=== PATIENT | male | born 1990 | race Caucasian/White ===

== ENCOUNTER 2021-11-07 07:53 | Inpatient (IN) | payer MEDICAID, SELFPAY ==
[2021-11-07] VITALS (10 sets, daily range): BP systolic 121–169; BP diastolic 67–91; PULSE 93–115; RESP 18–96; TEMP 36.6–37.2; O2SAT 94–99; BMI 45.7
--- NOTE | ~2021-11-07 | XR_ITS ---
EXAMINATION: XR CHEST CLINICAL INFORMATION: Cough COMPARISON: None TECHNIQUE: Frontal view of the chest was obtained. FINDINGS: No significant abnormality is noted involving the heart, lungs, mediastinum, bony thorax or soft tissues. XR/XR chest 1V IMPRESSION: Unremarkable examination.
--- NOTE | ~2021-11-07 | US_ITS ---
EXAMINATION: US RETROPERITONEAL LIMITED (RENAL ONLY) CLINICAL INFORMATION: Follow-up density mid left kidney. COMPARISON: Previous CT of the abdomen and pelvis from yesterday TECHNIQUE: Grayscale and color imaging of the kidneys FINDINGS: RIGHT KIDNEY: 14.2 x 5.9 x 6.1 cm (SAG x AP x TRV). The kidney is normal in size, contour, and echogenicity. Renal cortical thickness is normal. No calculi or focal parenchymal lesions. No hydronephrosis. LEFT KIDNEY: 15.2 x 7.2 x 6.3 cm (SAG x AP x TRV). The kidney is normal in size, contour, and echogenicity. Renal cortical thickness is normal. There is a 1.2 x 0.7 x 1 cm cyst in the midpole. This likely corresponds to finding on CT representing a hyperdense cyst. No calculi. No hydronephrosis. There are varices. US/US renal BI IMPRESSION: 1.2 x 0.7 x 1 cm left renal cyst..
--- NOTE | ~2021-11-07 | CT_ITS ---
EXAMINATION: CT ABDOMEN AND PELVIS WITHOUT CONTRAST CLINICAL INFORMATION: Abdominal pain, elevated liver function tests COMPARISON: None TECHNIQUE: Multidetector volumetric imaging was performed from the superior aspect of the liver through the pubic symphysis. Sagittal and coronal reformatted images were obtained on the technologist's workstation. This CT examination was performed using dose optimization techniques as appropriate, variously including the following: *Automated exposure control *Adjustment of mA and/or kV according to patient size (this includes techniques or standardized protocols for targeted exams where dose is matched to indication/reason for exam; i.e. extremities or head) *Use of iterative reconstruction technique DLP: 1164 mGy-cm FINDINGS: LUNG BASES: The visualized lung bases are unremarkable. LIVER, GALLBLADDER, AND BILIARY TREE: The liver is enlarged, measuring up to 26 cm in craniocaudal dimension. Evaluation of the parenchyma is limited due to lack of IV contrast, however there does appear to be a nodular contour. No discrete focal lesion is visualized. No biliary ductal dilatation is present. There is increased density of the intraluminal contents of the gallbladder, which may represent multiple small stones versus proteinaceous sludge. There is mild gallbladder wall thickening. PANCREAS: Unremarkable. SPLEEN: The spleen is enlarged, measuring up to 15.1 cm including caudal dimension. ADRENAL GLANDS: Unremarkable. KIDNEYS AND URETERS: The kidneys are normal in size and shape. There is a 1.1 cm ovoid intermediate density focus in the mid polar region of the left kidney (series 4, image 50). No hydronephrosis, hydroureter, or calculi seen. No perinephric stranding. BLADDER: Unremarkable. GASTROINTESTINAL TRACT: The stomach and small bowel are not dilated. No pericolonic inflammatory change. Normal appendix. ABDOMINAL WALL: There is anasarca of the soft tissues. LYMPH NODES/PERITONEUM: No suspicious lymphadenopathy. There is a small to moderate amount of ascites. VASCULAR: There is a recanalized umbilical vein as well as varices along the anterior abdominal wall. There are splenorenal varices and gastroesophageal varices. Normal caliber of the abdominal aorta.. PELVIC VISCERA: Unremarkable. OSSEOUS STRUCTURES: No acute or suspicious osseous abnormality. CT/CT abdomen pelvis wo con IMPRESSION: - Hepatomegaly with nodular surface of the liver suggestive of cirrhosis. - Evidence for portal venous hypertension, including splenomegaly, recanalized umbilical vein as well as abdominal wall, splenorenal, and gastroesophageal varices. There is also a small to moderate amount of ascites and body wall anasarca. - Intraluminal contents of the gallbladder have high density, which may represent multiple small stones versus proteinaceous sludge. There is gallbladder wall thickening, which can be seen in the setting of ascites/intrinsic liver disease. -1.1 cm ovoid intermediate density focus in the mid polar region of the left kidney, may represent a hemorrhagic cyst. Further evaluation can be obtained with renal ultrasound.
--- NOTE | ~2021-11-07 | US_ITS ---
PROCEDURE: US PARACENTESIS ABDOMEN WITH IMAGE CLINICAL INFORMATION: Alcoholic liver cirrhosis with ascites. COMPARISON: None TECHNIQUE: Following explaining ultrasound-guided diagnostic paracentesis procedure, benefits and risk, a written consent was obtained in presence of mine technician and IR nurse. Patient was placed supine on ultrasound stretcher and pulmonary ultrasound imaging was obtained through the entire abdomen. The area of maximum fluid within the left lower quadrant close to the inguinal region was observed. The area was marked, cleaned and draped in usual sterile manner. 1% lidocaine was injected at puncture site. Through a small skin incision a 5 [place] long Yueh needle was advanced into the left lower quadrant collection. After observing fluid return, stylet was withdrawn and catheter connected to vacuum bottle via connecting cannula. After obtaining all fluid and observing no more fluid, catheter was withdrawn and complete hemostasis achieved at puncture site. Sterile dressing applied postprocedure. Patient tolerated procedure extremely well. FINDINGS: On preliminary ultrasound imaging there is moderate fluid visualized in the left lower quadrant adjacent to the inguinal region. Approximately 800 mL of dark nae fluid initially jaundice color was obtained. Part of this fluid was sent to lab as per referring physician's orders. US/US paracentesis abd w/image IMPRESSION: Successful ultrasound-guided diagnostic paracentesis performed without immediate complications.
--- NOTE | 2021-11-07 08:35 | ECG_ITS ---
Test Reason : pain Blood Pressure : / mmHG Vent. Rate : 092 BPM Atrial Rate : 092 BPM P-R Int : 134 ms QRS Dur : 086 ms QT Int : 386 ms P-R-T Axes : 000 -09 -08 degrees QTc Int : 477 ms Normal sinus rhythm Minimal voltage criteria for LVH, may be normal variant ( R in aVL ) Cannot rule out Anterior infarct , age undetermined Abnormal ECG No previous ECGs available Referred By: Sebastian Mohan Electronically Signed By:ETTA THOMPSON
--- NOTE | 2021-11-07 08:37 | ED.GENADULT ---
HPI - General Adult General Chief complaint: General Medical Stated complaint: Blurred vision/Jaundice?/Liver issues Time Seen by Provider: 11/07/21 08:29 Source: patient and family Mode of arrival: ambulatory Limitations: no limitations History of Present Illness HPI narrative: This is 31 years old male with a history of alcohol abuse presented to the ED complaining of generalized weakness jaundice malaise blurred vision tremors. He usually drinks 1 pt of vodka daily he has been cutting down. Denies any fever any chills Onset (ago): day(s) (2) Radiation: non-radiation Severity: moderate Relieving factors: none Exacerbating factors: none Associated symptoms: denies other symptoms Related Data Home Medications Medication Instructions Recorded Confirmed No Known Home Meds 11/07/21 11/07/21 Allergies Allergy/AdvReac Type Severity Reaction Status Date / Time No Known Allergies Allergy Verified 11/07/21 08:34 Review of Systems Review of Systems: Yes all other systems are reviewed and are negative Eyes: Comments: jaundice Cardiovascular: Cardiovascular: Reports no additional cardiovascular complaints Respiratory: Respiratory: Reports no additional respiratory complaints Gastrointestinal: Gastrointestinal: Reports nausea Genitourinary: Genitourinary: Reports no additional male genitourinary complaints [facility] Past Medical History [facility] Narrative: Alcohol abuse Social History Social History Alcohol intake: current Alcohol type: hard liquor Patient Tobacco Use Status: Current someday Tobacco user Use of substances other than those prescribed or required for medical reasons: Yes Substance Use Type: Marijuana Substance Use Frequency: Occasionally Advance Directives: No Advance Directives Information Provided: No Physical Exam ED Vital Signs: Vital Signs - 24 hr 11/07/21 07:56 11/07/21 09:12 11/07/21 09:45 Temperature 98 F Pulse Rate 100 93 99 Respiratory Rate 19 19 18 Blood Pressure 149/77 H 127/67 121/73 Pulse Oximetry 99 99 98 11/07/21 13:25 Temperature Pulse Rate 105 H Respiratory Rate 96 H Blood Pressure 131/73 Pulse Oximetry 96 BMI result Body Mass Index 45.7 Const General: cooperative, comfortable and no acute distress Orientation/consciousness: patient oriented x3 HENMT Head: Yes normal to inspection Ears: hearing grossly normal bilaterally General nose exam: Normal external nose present Face and sinus: Yes normal facial exam Mouth: Normal oral and palatal mucosa present Throat: Yes posterior oropharynx normal Eyes Sclerae: scleral abnormal (jaundice) Neck Neck: Yes normal visual inspection Chest Chest palpation & inspection: normal inspection of the chest and normal palpation of entire chest wall Resp Effort & Inspection: normal respiratory effort Auscultation: clear to auscultation bilaterally Cardio Jugular venous distension: no JVD Rate: regular rate Rhythm: regular rhythm GI Other: distended but no tender Palpation (GI): Soft to palpation and nontender Skin General skin exam: no rashes or lesions noted and elasticity normal Rashes: no rashes Neuro General: patient oriented x3 Cranial nerves: Yes CN's II-XII intact bilaterally Course Reevaluation(s) Reevaluation #1: Feeling better he is awake and alert oriented X 3 at this time and hemodinamically stable,high risk of withdrawal will start phenobarbital protocol I spoke with GI as well Dr Nielson Medical Decision Making Lab Data Lab results reviewed: Yes I reviewed the patient's lab results. Result diagrams: 11/07/21 09:00 11/07/21 09:00 Labs: Lab Results 11/07/21 11/07/21 11/07/21 Range/Units 09:00 09:00 09:00 WBC 12.2 H (4.8-10.8) X10*3/uL RBC 3.82 L (4.60-5.80) X10*6/uL Hgb 12.2 L (14.0-18.0) g/dl Hct 34.1 L (42.0-52.0) % MCV 89.3 (80.0-98.0) fL MCH 31.9 (27.0-33.0) pg MCHC 35.8 (31.0-36.0) g/dl RDW 18.2 H (11.0-16.0) % Plt Count 107 L (160-400) X10*3/uL MPV 9.7 (9.4-12.4) fL Immature Gran % (Auto) 0.9 H (0.0-0.4) % Neut % (Auto) 88.2 H (45-73) % Lymph % (Auto) 4.8 L (20-40) % [place] % (Auto) 5.1 (2-11) % Eos % (Auto) 0.5 (0-4) % Baso % (Auto) 0.5 (0-2) % Lymph # (Auto) 0.6 L (1.2-4.9) X10*3/uL [place] # (Auto) 0.6 (0.1-1.2) X10*3/uL Eos # (Auto) 0.1 (0.0-0.4) X10*3/uL Baso # (Auto) 0.1 (0.0-0.2) X10*3/uL Abs Immat Gran (auto) 0.11 H (0.00-0.03) X10*3/uL Absolute Neuts (auto) 10.8 H (2.0-8.3) x10*3/uL Absolute Nucleated RBC 0.000 (0.0-0.012) X10*3/uL Nucleated RBC % (auto) 0.0 (0.0-0.2) /100WBC Sodium 128 L (135-145) mmol/L Potassium 5.4 H (3.3-5.1) mmol/L Chloride 92 L (96-108) mmol/L Carbon Dioxide 23 (22-29) mmol/L Anion Gap 18 (12-20) BUN 8 L (9-16) mg/dL Creatinine 0.65 (0.5-1.4) mg/dL Estim Creat Clear Calc 255.5 Estimated GFR > 60 Random Glucose 127 H (60-115) mg/dL Calcium 7.5 L (8.4-10.2) mg/dL Total Bilirubin 23.4 H (0.0-1.0) mg/dL AST 383 H (5-37) U/L ALT 106 H (0-40) U/L Alkaline Phosphatase 245 H (39-117) U/L Ammonia (13-55) umol/L Troponin I High Sens 4.7 (<3.5-35.0) ng/L Total Protein 7.4 (6.5-8.0) g/dL Albumin 2.8 L (3.5-5.0) g/dL COVID-19 (EDIS) (Negative) COVID-19 Clin Com 11/07/21 11/07/21 Range/Units 09:00 09:17 WBC (4.8-10.8) X10*3/uL RBC (4.60-5.80) X10*6/uL Hgb (14.0-18.0) g/dl Hct (42.0-52.0) % MCV (80.0-98.0) fL MCH (27.0-33.0) pg MCHC (31.0-36.0) g/dl RDW (11.0-16.0) % Plt Count (160-400) X10*3/uL MPV (9.4-12.4) fL Immature Gran % (Auto) (0.0-0.4) % Neut % (Auto) (45-73) % Lymph % (Auto) (20-40) % [place] % (Auto) (2-11) % Eos % (Auto) (0-4) % Baso % (Auto) (0-2) % Lymph # (Auto) (1.2-4.9) X10*3/uL [place] # (Auto) (0.1-1.2) X10*3/uL Eos # (Auto) (0.0-0.4) X10*3/uL Baso # (Auto) (0.0-0.2) X10*3/uL Abs Immat Gran (auto) (0.00-0.03) X10*3/uL Absolute Neuts (auto) (2.0-8.3) x10*3/uL Absolute Nucleated RBC (0.0-0.012) X10*3/uL Nucleated RBC % (auto) (0.0-0.2) /100WBC Sodium (135-145) mmol/L Potassium (3.3-5.1) mmol/L Chloride (96-108) mmol/L Carbon Dioxide (22-29) mmol/L Anion Gap (12-20) BUN (9-16) mg/dL Creatinine (0.5-1.4) mg/dL Estim Creat Clear Calc Estimated GFR Random Glucose (60-115) mg/dL Calcium (8.4-10.2) mg/dL Total Bilirubin (0.0-1.0) mg/dL AST (5-37) U/L ALT (0-40) U/L Alkaline Phosphatase (39-117) U/L Ammonia 105 H (13-55) umol/L Troponin I High Sens (<3.5-35.0) ng/L Total Protein (6.5-8.0) g/dL Albumin (3.5-5.0) g/dL COVID-19 (EDIS) Negative (Negative) COVID-19 Clin Com See Note Critical Care Time Critical Care Time Critical Care Time: Yes Total Critical Care Time: 45 Attestation: Spoke with mother,examining pt speaking with GI/hospitalist Discharge Plan Discharge Clinical Impression: Acute hepatic encephalopathy, Acute alcoholic liver disease
[2021-11-07 09:06] LABS: MANUAL DIFF FLAG NO
[2021-11-07] MEDS: ondansetron HCL 4 MG/2 ML VIAL IVPUSH (09:07)
[2021-11-07] MEDS: chlordiazePOXIDE HCl 25 MG CAPSULE 100 MG PO (09:07)
[2021-11-07 09:08] LABS: Basophils Absolute Auto 0.1 X10*3/uL (0.0-0.2); Basophils Percent Auto 0.5 % (0-2); Eosinophils Absolute Auto 0.1 X10*3/uL (0.0-0.4); Eosinophils Percent Auto 0.5 % (0-4); Hematocrit 34.1 % (42.0-52.0); Hemoglobin 12.2 g/dl (14.0-18.0); Imm Gran Abs Auto 0.11 X10*3/uL (0.00-0.03); Imm Gran Pct Auto 0.9 % (0.0-0.4); Lymphocytes Absolute Auto 0.6 X10*3/uL (1.2-4.9); Lymphocytes Percent Auto 4.8 % (20-40); Mean Corpuscular HGB Conc 35.8 g/dl (31.0-36.0); Mean Corpuscular Hemoglobin 31.9 pg (27.0-33.0); Mean Corpuscular Volume 89.3 fL (80.0-98.0); Mean Platelet Volume 9.7 fL (9.4-12.4); Monocytes Absolute Auto 0.6 X10*3/uL (0.1-1.2); Monocytes Percent Auto 5.1 % (2-11); Neutrophils Absolute Auto 10.8 x10*3/uL (2.0-8.3); Neutrophils Percent Auto 88.2 % (45-73); Platelet Count 107 X10*3/uL (160-400); Red Blood Count 3.82 X10*6/uL (4.60-5.80); Red Cell Distribution Width 18.2 % (11.0-16.0); White Blood Count 12.2 X10*3/uL (4.8-10.8)
[2021-11-07 09:38] LABS: Troponin-I High Sensitivity 4.7 ng/L (<3.5-35.0)
[2021-11-07 09:41] LABS: COVID-19 Test Negative (Negative)
[2021-11-07 09:43] LABS: Alanine Aminotransferase 106 U/L (0-40); Albumin Level 2.8 g/dL (3.5-5.0); Alkaline Phosphatase 245 U/L (39-117); Anion Gap 18 (12-20); Aspartate Amino Transferase 383 U/L (5-37); Blood Urea Nitrogen 8 mg/dL (9-16); Calcium 7.5 mg/dL (8.4-10.2); Carbon Dioxide 23 mmol/L (22-29); Chloride 92 mmol/L (96-108); Creatinine Clr Calc Pharmacy 255.5; Estimated Glomerular Filt Rate > 60; Glucose Random 127 mg/dL (60-115); Potassium 5.4 mmol/L (3.3-5.1); Sodium 128 mmol/L (135-145); Total Protein 7.4 g/dL (6.5-8.0)
[2021-11-07 09:49] LABS: Ammonia 105 umol/L (13-55)
[2021-11-07] MEDS: Lactulose 20 GM/30 ML SOLUTION PO (10:24)
[2021-11-07 10:25] LABS: Bilirubin Total 23.4 mg/dL (0.0-1.0)
--- NOTE | 2021-11-07 10:29 | P.CNGI_ITS ---
History of Present Illness Data of Consult Service Date: 11/07/21 Requesting physician: Sebastian Mohan Primary Care Provider: None Physician HPI Reason for consult: Abn LFT< 31 yr old m presented to the ED who I am seeing for assessment for abn LFT with jaundice Patient had not been feeling well last few days and noted worsening jaundice few weeks ago with poor appetite and malaise as well as abdominal distention and ankle swelling. He drinks hard liquor daily for years, and last drank yesterday. Remote use of cocaine and heroin in past. strong FH of alcoholism. he denies abdominal pain, but has slight discomfort, no nausea, no vomiting no melena or rectal bleeding. Does admit to poor memory recently but better today after fluids and hydration. No fevers or chills, never had liver problems before. No SOB, cough or sputum. Friends are mostly alcoholics as well, started drinking from age of 18. Imaging: CT with nodular liver, ascites, varices noted, splenomegaly. Labs: raised LFT as below Review of Systems Review of Systems: Constitutional : No Weight loss, No Fever, No Chills ENT/Mouth : No sore throat, No Rhinorrhea Eyes: No Swelling, No Redness Cardiovascular : No Chest Pain, No SOB, No Edema Respiratory : No Cough, No Sputum, No Wheezing Gastrointestinal : see HPI Genitourinary : NO Dysuria, No Urinary Frequency, No Hematuria, No Urgency Musculoskeletal : No joint pain, No Myalgias, No Joint Swelling Skin : No Skin Lesions, No rash Neuro : No Weakness, No Numbness, No Dizziness, No Headache Psych : No Anxiety/Panic, No Depression Heme/Lymph: No Bruising, No Lymphadenopathy Endocrine : No Polyuria, No Polydipsia All other systems reviewed and are negative. Hematologic/Lymphatic: Hematologic/Lymphatic: Reports no additional hematologic/lymphatic complaints Allergic/Immunologic: Allergic/Immunologic: Reports no additional allergic/immunologic complaints [facility] Past Medical History Functional capacity: independent ambulation Family History Pertinent family history: alcoholism in father and grandfather, no FH of liver disease Social History Social History Alcohol intake: current Alcohol type: hard liquor Patient Tobacco Use Status: Current someday Tobacco user Use of substances other than those prescribed or required for medical reasons: Yes Substance Use Type: Marijuana Substance Use Frequency: Occasionally Advance Directives: No Advance Directives Information Provided: No Meds Allergies Allergy/AdvReac Type Severity Reaction Status Date / Time No Known Allergies Allergy Verified 11/07/21 08:34 Active Medications: Current Medications Pharmacy Consult (Consult Rx Etoh Phenob Po Dose) 1 each MISCELLANE DAILY PRN PRN Reason: Consult order Phenobarbital 200 mg/ (Phenobarbital 30 mg) 230 mg PO Q3H KAREN Stop: 11/07/21 16:01 Phenobarbital (Phenobarbital 30 Mg Tablet) 60 mg PO BID KAREN Stop: 11/09/21 09:01 Phenobarbital (Phenobarbital 30 Mg Tablet) 30 mg PO BID KAREN Stop: 11/11/21 09:01 Phenobarbital (Phenobarbital 30 Mg Tablet) 30 mg PO DAILY KAREN Stop: 11/13/21 09:01 Home Medications Medication Instructions Recorded Confirmed Last Taken Type No Known Home Meds 11/07/21 11/07/21 Unknown History Physical Exam Vital Signs: Vital Signs: Last Vital Signs Temp 98 F 11/07/21 07:56 Pulse 99 11/07/21 09:45 Resp 18 11/07/21 09:45 BP 121/73 11/07/21 09:45 Pulse Ox 98 11/07/21 09:45 BMI result Body Mass Index 45.7 EXAM: GENERAL: The patient is deeply jaundiced, slightly lethargic VITAL SIGNS:see workflow HEENT: icteric sclerae, PERRLA, EOMI. Oropharynx clear. Moist mucous membranes. Conjunctivae appear well perfused. No thyroid mass. CHEST: Chest wall is nontender. HEART: Regular rate and rhythm without murmurs. LUNGS: Clear to auscultation bilaterally. ABDOMEN: Soft, distended, obese, positive bowel sounds, nontender, + organomegaly.no flank tenderness--shifting dullness + SKIN: No rash, no excessive bruising, petechiae, or purpura. spider naevi on chest wall NEUROLOGIC: Cranial nerves II-XII intact without motor/sensory deficit. AAOx3 psych- normal affect extremities- ankle edema with varicose veins Results Labs CBC & Chem 7: 11/07/21 09:00 11/07/21 09:00 Labs: Short CBC 11/07/21 Range/Units 09:00 WBC 12.2 H (4.8-10.8) X10*3/uL Hgb 12.2 L (14.0-18.0) g/dl Hct 34.1 L (42.0-52.0) % Plt Count 107 L (160-400) X10*3/uL BMP 11/07/21 09:00 Sodium 128 L Potassium 5.4 H Chloride 92 L Carbon Dioxide 23 BUN 8 L Creatinine 0.65 Calcium 7.5 L Liver Function 11/07/21 Range/Units 09:00 Total Bilirubin 23.4 H (0.0-1.0) mg/dL AST 383 H (5-37) U/L ALT 106 H (0-40) U/L Alkaline Phosphatase 245 H (39-117) U/L Albumin 2.8 L (3.5-5.0) g/dL Imaging CT scan - abdomen: Attestation: I personally reviewed and interpreted this imaging study as follows: (hepatosplenomegaly, ascites-small, varices, anasarca ) Assessment and Plan (1) Acute alcoholic liver disease: Status: Acute (2) Alcohol abuse: Status: Acute (3) Ascites due to alcoholic cirrhosis: Status: Acute (4) Anemia: Status: Acute Plan 1/ Acute alcoholic hepatitis with decompensated cirrhosis complicated by ascites 2/ anemia, related to malnutrition, hypersplenism from portal HTN, alcoholic gastritis 3/ alcohol abuse 4/ Varices, no overt bleeding MELD and MAddrey no calculated as INR pending PLAN 1/ Check labs for secondary causes of liver disease e.g AIH, hemochromatosis, viral liver disease etc 2/ PO 40 mg prednisone and check lille score in 1 week , would also give PO PPI e.g pantoprazole 40 mg to prevent ulceration steroids associated with improved outcomes at 28 d not necessarily at 90 days 3/ high protein and calorie diet may be the most beneficial thing in breaking the inflammatory cycle- 1-1.5 g/kg protein and 30-40 kcal/kg body weight--good outcomes at 1 yr --also with steroids on board increased musc breakdown and catabolism 4/ check zinc level and replace if low, check iron level, b12, folic acid 5/ mutlivitamins and CIWA scoring 6/ hold diuretics for the meantime, maintain on low sodium diet, avoid nsaids, once lyres better can start low dose aldactone,lasix combo 7/ egd , as o/p 8/ hold beta blockers for the moment 9/ Confusion resolved, prob from hepatic encephaloapthy, can use lactulose aim for 2-3 soft stools/day 10/ if enough fluid on US--tap ascites and send for cell counts and SAAG 11/ may benefit from psych eval Negrito et al.6 published results from the STOPAH (Steroids or Pentoxifylline for Alcoholic Hepatitis) trial, a multicenter study in which more than 1000 patients with SAH were randomized to 28 days of treatment with prednisolone, pentoxifylline, prednisone + pentoxifylline, or placebo. When specifically c omparing patients with and without steroid exposure, the investigators identified a trend toward reduced 28?day mortality in the steroid group, but this survival benefit was no longer seen at 90 days.. Notably, the rate of infection was nearly twice as high in the group of patients who received ramos icosteroids, although mortality rates were similar across all groups. Negrito MR, Wai P, Crystal Brennan, et al. Prednisolone or pentoxifylline for alcoholic hepatitis. N Engl J Med 2015; 372: 1619? 1628. In a randomised multicentre trial of severe AAH patients, Krystian? et al compared short and long-term effects of steroids and total enteral nutrition via nasoduodenal tube (providing 2000 kcal/d for 4 wk). Although short-term mortality was no different, the study showed improved outcomes at 1 year follow- up for patients treated with total enteral nutrition (P = 0.04, [id number] analysis), with 8% one-year mortality reported in the enterally fed group, compared to 37% in the prednisolone-only group during the follow-up period, with most deaths attributed to sepsis Cabr? E,?Rodr?Joseph P,?Mikayla?maria ines Mclean,?Dominique EVI,?S?Timothy?maria ines CONTRERAS,?Par?s A,?Donnie M,?Georgette R,?Anne-Marie RAMSEY.?Short- and long-term outcome of severe alcohol- induced hepatitis treated with steroids or enteral nutrition: a multicenter randomized trial. Hepatology.?2000;32:36-42. Procedures Date of Service Date of Service: 11/07/21
--- NOTE | 2021-11-07 10:38 | PC.NURSE ---
pt alert and oriented, vss, denies pain. no s/s of withdrawal noted/reported. pt educated on diagnosis, meds given, both the reason and results of blood work. pt currently resting quietly, no apparent distress. pt's mother is at his bedside. will continue to monitor.
--- NOTE | 2021-11-07 11:18 | PHA.MEDREC ---
MED REC COMPLETE, NO ISSUES Pharmacy Consult ? Medication Reconciliation Pharmacy has completed the medication reconciliation.
[2021-11-07] MEDS: prednisoLONE sodium phosphate 15 MG/5 ML SOLUTION 40 MG PO (13:23)
[2021-11-07] MEDS: PHENobarbitaL 200 MG, PHENobarbitaL 30 MG 230 MG PO ×2 (13:24→15:56)
--- NOTE | 2021-11-07 14:09 | P.HPHOSP_ITS ---
History of Present Illness Date of Service: 11/07/21 Chief Complaint: edema, confusion, weakness a 31 years old male with PMH of alcohol abuse and morbid obesity presents to the hospital complaining of increasing edema, jaundice and generalized weakness for the last 3 weeks. The patient reports that he has been complaining of worsening weakness, edema and associated blurred vision and tremors for almost 3 weeks as he has been trying to cut down his alcohol intake. He reports drinking significantly over the past years with more than once try to quit drinking which she could not do by himself but he cut down his alcohol intake to 1 pending of vodka daily. Reports that he started feeling different over 3 weeks with increased weight and weakness associated with edema in his lower extremities and abdominal distension. He denies any fever, chills, chest pain, palpitation, shortness of breath, change in bowel habit or urinary symptoms. He noticed his eyes turning jaundiced during the last few weeks as well. In the emergency blood work was consistent with elevated bilirubin to 23, transaminitis, hyponatremia and hyperkalemia. CT scan of the abdomen was consistent with cirrhosis of the liver. Will be admitted for further evaluation and treatment. Review of Systems Review of Systems: No fever, chills or weakness No chest pain, palpitation No shortness of breath or coughing No abdominal pain, nausea or vomiting No urinary symptoms No any rash or wounds PMFSH Social History Alcohol intake: current Alcohol type: hard liquor Patient Tobacco Use Status: Current someday Tobacco user Use of substances other than those prescribed or required for medical reasons: Yes Substance Use Type: Marijuana Substance Use Frequency: Occasionally Advance Directives: No Advance Directives Information Provided: No Meds Allergies Allergy/AdvReac Type Severity Reaction Status Date / Time No Known Allergies Allergy Verified 11/07/21 08:34 Active Medications: Current Medications Acetaminophen (Acetaminophen 325 Mg Tablet) 650 mg PO Q6H PRN PRN Reason: Pain, Mild (Pain Scale 1-3) Furosemide (Furosemide 20 Mg/2 Ml Vial) 10 mg IVPUSH ONCE ONE; Protocol Stop: 11/07/21 14:00 Lactulose (Lactulose 20 Gm/30 Ml Solution) 10 gm PO BID KAREN Ondansetron HCl (Ondansetron Hcl 4 Mg/2 Ml Vial) 4 mg IVPUSH Q8H PRN PRN Reason: Nausea and Vomiting Pharmacy Consult (Consult Rx Etoh Phenob Po Dose) 1 each MISCELLANE DAILY PRN PRN Reason: Consult order Pharmacy Consult (Consult Rx Perform Med Rec) 1 each MISCELLANE ONCE PRN PRN Reason: Consult order Phenobarbital 200 mg/ (Phenobarbital 30 mg) 230 mg PO Q3H [facility] Stop: 11/07/21 16:01 Last Admin: 11/07/21 13:24 Dose: 230 mg Documented by: Phenobarbital (Phenobarbital 30 Mg Tablet) 60 mg PO BID [facility] Stop: 11/09/21 09:01 Phenobarbital (Phenobarbital 30 Mg Tablet) 30 mg PO BID [facility] Stop: 11/11/21 09:01 Phenobarbital (Phenobarbital 30 Mg Tablet) 30 mg PO DAILY [facility] Stop: 11/13/21 09:01 Prednisolone Sodium Phosphate (Prednisolone Sodium Phosphate 15 Mg/5 Ml Solution) 40 mg PO DAILY [facility] Last Admin: 11/07/21 13:23 Dose: 40 mg Documented by: Sodium Chloride (0.9 % Sodium Chloride Flush 3 Ml Syringe) 3 ml IVFLUSH QSHIFT [facility] Home Medications Medication Instructions Recorded Confirmed Last Taken Type No Known Home Meds 11/07/21 11/07/21 Unknown History Physical Exam Vital Signs and Narrative: Vital Signs: Last Vital Signs Temp 98 F 11/07/21 07:56 Pulse 105 H 11/07/21 13:25 Resp 96 H 11/07/21 13:25 BP 131/73 11/07/21 13:25 Pulse Ox 96 11/07/21 13:25 BMI result Body Mass Index 45.7 Const: Other: Constitutional : Alert, interact, not in distress, morbidly obese Neck : Normal inspection, Supple Cardiovascular : RRR, elevated JVP, +2 bilateral lower extremity edema up to mid thigh Respiratory : decreased basal bilateral air entry, nocrackles, wheezes or r honchi Gastrointestinal: soft, lax, not tender, distended with mild to moderate amount of ascites Skin : Warm, Dry Neurological : Alert & oriented x3, No focal deficit , CN 2-12 within normal Results Labs CBC and Chem 7: 11/07/21 09:00 11/07/21 09:00 Labs: Laboratory Results - last 24 hr 11/07/21 11/07/21 11/07/21 09:00 09:00 09:00 MCV 89.3 MCH 31.9 MCHC 35.8 RDW 18.2 H Plt Count 107 L MPV 9.7 Immature Gran % (Auto) 0.9 H Neut % (Auto) 88.2 H Lymph % (Auto) 4.8 L [place] % (Auto) 5.1 Eos % (Auto) 0.5 Baso % (Auto) 0.5 Lymph # (Auto) 0.6 L [place] # (Auto) 0.6 Eos # (Auto) 0.1 Baso # (Auto) 0.1 Abs Immat Gran (auto) 0.11 H Absolute Neuts (auto) 10.8 H Absolute Nucleated RBC 0.000 Nucleated RBC % (auto) 0.0 Anion Gap 18 Estim Creat Clear Calc 255.5 Estimated GFR > 60 Random Glucose 127 H Calcium 7.5 L Total Bilirubin 23.4 H AST 383 H ALT 106 H Alkaline Phosphatase 245 H Ammonia Troponin I High Sens 4.7 Total Protein 7.4 Albumin 2.8 L COVID-19 ([facility]IS) COVID-19 Clin Com 11/07/21 11/07/21 09:00 09:17 MCV MCH MCHC RDW Plt Count MPV Immature Gran % (Auto) Neut % (Auto) Lymph % (Auto) [place] % (Auto) Eos % (Auto) Baso % (Auto) Lymph # (Auto) [place] # (Auto) Eos # (Auto) Baso # (Auto) Abs Immat Gran (auto) Absolute Neuts (auto) Absolute Nucleated RBC Nucleated RBC % (auto) Anion Gap Estim Creat Clear Calc Estimated GFR Random Glucose Calcium Total Bilirubin AST ALT Alkaline Phosphatase Ammonia 105 H Troponin I High Sens Total Protein Albumin COVID-19 (EDIS) Negative COVID-19 Clin Com See Note Imaging Radiologist's Impressions: Impressions Chest X-Ray 11/07/21 09:35 IMPRESSION: Unremarkable examination. Abdomen/Pelvis CT 11/07/21 11:02 IMPRESSION: - Hepatomegaly with nodular surface of the liver suggestive of cirrhosis. - Evidence for portal venous hypertension, including splenomegaly, recanalized umbilical vein as well as abdominal wall, splenorenal, and gastroesophageal varices. There is also a small to moderate amount of ascites and body wall anasarca. - Intraluminal contents of the gallbladder have high density, which may represent multiple small stones versus proteinaceous sludge. There is gallbladder wall thickening, which can be seen in the setting of ascites/intrinsic liver disease. -1.1 cm ovoid intermediate density focus in the mid polar region of the left kidney, may represent a hemorrhagic cyst. Further evaluation can be obtained with renal ultrasound. Assessment and Plan (1) Acute hepatic encephalopathy: Status: Acute (2) Acute alcoholic liver disease: Status: Acute (3) Anemia: Status: Acute (4) Ascites due to alcoholic cirrhosis: Status: Acute (5) Alcohol abuse: Status: Acute (6) Hyponatremia: Status: Acute (7) Hyperkalemia: Status: Acute Plan ?a 59 years old male with PMH of schizophrenia, HTN, diabetes and alcoholism who presents to the hospital by ambulance for suicidal ideation admitted to the psych floor were he developed worsening symptoms of confusion and? hallucination.? acute hepatic encephalopathy 2/2 alcoholic liver cirrhosis Evidence of cirrhosis on CT abdomen evaluate 2ndry causes AIH, hemochromatosis, viral hepatitis tapering dose prednisone PO PPI e.g pantoprazole 40 mg to prevent ulceration high protein and calorie diet, to get digital cartographic technician evaluation check zinc , iron profile, b12, folic acid GI input appreciated, to do EGD as outpatient Hold beta-javid for now Continue lactulose with goal of 2 bowel movements a day alcohol abuse High risk for withdrawal Start phenobarbital protocol mutlivitamins and CIWA scoring get adduction team evaluation Ascites Received a dose of Lasix , hold further diuretics for now maintain on low sodium diet monitor electrolytes before starting diuresis To do paracentesis and check for cell counts and SAAG hyponatremia Secondary to dilution from cirrhosis monitor for now, received a dose of Lasix of Goal to keep it around 128 or above Hyperkalemia Potassium of 5.6 Received Lokelma Follow BMP anemia Likely secondary to cirrhosis check occult blood Check iron profile DVT PPX Heparin Quality Stroke Does the patient have a stroke diagnosis?: No VTE Prior VTE?: No VTE Risk Level:: Medical - moderate - high VTE Device Contraindication: Treatment Not Indicated VTE Drug Contraindication: N/A - Med Ordered
[2021-11-07] MEDS: Sodium Zirconium Cyclosilicate 5 GM POWD.PACK PO (14:21)
[2021-11-07] MEDS: Furosemide 20 MG/2 ML VIAL IVPUSH (14:51)
[2021-11-07] MEDS: 0.9 % Sodium Chloride Flush 3 ML SYRINGE IVFLUSH ×2 (14:52→23:55)
[2021-11-07] MEDS: Omeprazole 40 MG CAPSULE.DR PO (15:55)
[2021-11-07 16:07] LABS: INTERNATIONAL NORM RATIO 2.3 (0.9-1.1); Prothrombin Time 26.1 SEC (9.9-13.0)
[2021-11-07 16:09] LABS: Anion Gap 16 (12-20); Blood Urea Nitrogen 8 mg/dL (9-16); Calcium 7.7 mg/dL (8.4-10.2); Carbon Dioxide 25 mmol/L (22-29); Chloride 90 mmol/L (96-108); Creatinine Clr Calc Pharmacy 210.2; Estimated Glomerular Filt Rate > 60; Glucose Random 118 mg/dL (60-115); Iron 128 mcg/dL (45-160); Potassium 3.1 mmol/L (3.3-5.1); Sodium 128 mmol/L (135-145); Total Iron Binding Capacity < 145 mcg/dL (228-428); Unsaturated Iron Binding < 17 ug/dL
[2021-11-07 16:09] LABS: Partial Thromboplastin Time 47.8 SEC (24.1-38.0)
[2021-11-07] MEDS: PHENobarbitaL 30 MG TABLET 60 MG PO (21:12)
[2021-11-07] MEDS: Lactulose 20 GM/30 ML SOLUTION 10 GM PO (21:13)
[2021-11-08 03:31] VITALS: BP 160/86; PULSE 120; RESP 20; TEMP 37.5; O2SAT 97
[2021-11-08 04:20] LABS: ~HepC Num1 0.12 S/CO (0.00-0.79); ~Hepatitis C Antibody Nonreactive (Nonreactive)
[2021-11-08 04:38] LABS: HBS Num1 38.64 mIU/mL (0-7.99); HBc Num1 0.04 S/CO (0.00-0.79); HBsAGNum1 0.24 S/CO (0.00-0.99); Hepatitis B Core Antibody Nonreactive (Nonreactive); Hepatitis B Surface Antigen Negative (Negative); ~Hepatitis B Surface Antibody REACTIVE (Nonreactive)
[2021-11-08 04:50] LABS: HIV AB/AG Nonreactive (Nonreactive); HIV Num 1 0.08 S/CO (0.00-0.99)
[2021-11-08] MEDS: Omeprazole 40 MG CAPSULE.DR PO ×2 (06:24→17:27)
[2021-11-08 06:26] LABS: Folate 1.8 ng/mL (> or = 4.0); Vitamin B12 1211 pg/mL (200-900)
--- NOTE | 2021-11-08 06:30 | PC.NURSE ---
Patient refusing bed alarm this morning. Educated on risk of seizure and falls due to condition. Patient wants bed alarm off regardless of risk.
[2021-11-08 07:07] VITALS: BP 141/76; PULSE 120; RESP 18; TEMP 36.7; O2SAT 94
[2021-11-08 08:38] LABS: Hematocrit 30.6 % (42.0-52.0); Hemoglobin 11.3 g/dl (14.0-18.0); Mean Corpuscular HGB Conc 36.9 g/dl (31.0-36.0); Mean Corpuscular Hemoglobin 32.3 pg (27.0-33.0); Mean Corpuscular Volume 87.4 fL (80.0-98.0); Red Cell Distribution Width 17.5 % (11.0-16.0); White Blood Count 10.4 X10*3/uL (4.8-10.8)
[2021-11-08 08:55] LABS: INTERNATIONAL NORM RATIO 2.4 (0.9-1.1); Prothrombin Time 27.5 SEC (9.9-13.0)
[2021-11-08 09:06] LABS: Mean Platelet Volume 9.8 fL (9.4-12.4); Platelet Count 93 X10*3/uL (160-400)
[2021-11-08 09:09] LABS: Alanine Aminotransferase 97 U/L (0-40); Albumin Level 2.8 g/dL (3.5-5.0); Alkaline Phosphatase 246 U/L (39-117); Anion Gap 14 (12-20); Aspartate Amino Transferase 258 U/L (5-37); Bilirubin Total 24.7 mg/dL (0.0-1.0); Blood Urea Nitrogen 12 mg/dL (9-16); Calcium 7.9 mg/dL (8.4-10.2); Carbon Dioxide 25 mmol/L (22-29); Chloride 92 mmol/L (96-108); Creatinine Clr Calc Pharmacy 212.9; Estimated Glomerular Filt Rate > 60; Glucose Random 124 mg/dL (60-115); Potassium 2.8 mmol/L (3.3-5.1); Sodium 128 mmol/L (135-145); Total Protein 6.1 g/dL (6.5-8.0)
[2021-11-08] MEDS: Folic Acid 1 MG TABLET PO (09:12)
[2021-11-08] MEDS: Ferrous Sulfate 324 MG TABLET.DR PO ×2 (09:12→17:27)
[2021-11-08] MEDS: Thiamine HCL 100 MG TABLET PO (09:12)
[2021-11-08] MEDS: PHENobarbitaL 30 MG TABLET 60 MG PO ×2 (09:12→20:05)
[2021-11-08] MEDS: Lactulose 20 GM/30 ML SOLUTION 10 GM PO ×2 (09:13→20:05)
[2021-11-08] MEDS: 0.9 % Sodium Chloride Flush 3 ML SYRINGE IVFLUSH ×2 (09:14→17:27)
[2021-11-08 09:19] LABS: Bilirubin Direct 17.2 mg/dL (0.0-0.5)
[2021-11-08] MEDS: Lidocaine HCl 1 % MPF 5 ML VIAL SUBCUT (10:12)
[2021-11-08] MEDS: Potassium Chloride Packet 20 MEQ PACKET 40 MEQ PO ×2 (10:27→14:51)
[2021-11-08 10:57] LABS: RBC Peritoneal Fluid 0.003 X10*6/uL; WBC Peritoneal Fluid 0.129 X10*3/uL
[2021-11-08 11:21] VITALS: BP 168/78; PULSE 118; RESP 18; TEMP 36.4; O2SAT 95
[2021-11-08 12:18] LABS: OBS1 POSITIVE (NEGATIVE)
[2021-11-08 12:19] LABS: OBS Int Ctl Valid YES
[2021-11-08 13:17] LABS: BF Shift QC OK YES; Lymphocyte Peritoneal Fl 41 %; Monocytes Peritoneal Fl 17 %; Neutrophils Peritoneal Fluid 22 %; Other Peritioneal Fl 20 %
--- NOTE | 2021-11-08 14:04 | P.PNIM_ITS ---
Subjective Subjective Date of Service: 11/08/21 Interval History: seen and evaluated this morning Reporting feels mild improvement since yesterday next [place] denies any fever, chills, abdominal pain Bilirubin still increasing with improvement of transaminitis No significant symptoms of withdrawal Review of Systems No fever, chills or weakness No chest pain, palpitation improvement in shortness of breath, no coughing No abdominal pain, nausea or vomiting, having bowel movement but still feeling distended No urinary symptoms No any rash or wounds jaundice Physical Exam Vital Signs: Vital Signs: Last Vital Signs Temp 97.5 F 11/08/21 11:21 Pulse 118 H 11/08/21 11:21 Resp 18 11/08/21 11:21 BP 168/78 H 11/08/21 11:21 Pulse Ox 95 11/08/21 11:21 BMI result Body Mass Index 45.7 Const: Other: Constitutional : Alert, interact, not in distress, morbidly obese Neck : Normal inspection, Supple Cardiovascular : RRR, elevated JVP, +2 bilateral lower extremity edema up to mid thigh Respiratory : decreased basal bilateral air entry, nocrackles, wheezes or rhonchi Gastrointestinal: soft, lax, not tender, distended with mild to moderate amount of ascites Skin : Warm, Dry Neurological : Alert & oriented x3, No focal deficit , CN 2-12 within normal Objective Data Active Medications Acetaminophen (Acetaminophen 325 Mg Tablet) 650 mg PO Q6H PRN PRN Reason: Pain, Mild (Pain Scale 1-3) Ferrous Sulfate (Ferrous Sulfate 324 Mg Tablet.) 324 mg PO BIDWM [facility] Last Admin: 11/08/21 09:12 Dose: 324 mg Documented by: JUANIS Folic Acid (Folic Acid 1 Mg Tablet) 1 mg PO DAILY [facility] Last Admin: 11/08/21 09:12 Dose: 1 mg Documented by: JUANIS Heparin Sodium (Porcine) (Heparin Sodium,Porcine 5,000 Unit/Ml Vial) 5,000 unit SUBCUT Q8H [facility] Lactulose (Lactulose 20 Gm/30 Ml Solution) 10 gm PO BID [facility] Last Admin: 11/08/21 09:13 Dose: 10 gm Documented by: JUANIS Omeprazole (Omeprazole 40 Mg Capsule.) 40 mg PO BID@0630,1630 [facility] Last Admin: 11/08/21 06:24 Dose: 40 mg Documented by: ENMANUEL Ondansetron HCl (Ondansetron Hcl 4 Mg/2 Ml Vial) 4 mg IVPUSH Q8H PRN PRN Reason: Nausea and Vomiting Pharmacy Consult (Consult Rx Etoh Phenob Po Dose) 1 each MISCELLANE DAILY PRN PRN Reason: Consult order Pharmacy Consult (Consult Rx Perform Med Rec) 1 each MISCELLANE ONCE PRN PRN Reason: Consult order Phenobarbital (Phenobarbital 30 Mg Tablet) 60 mg PO BID [facility] Stop: 11/09/21 09:01 Last Admin: 11/08/21 09:12 Dose: 60 mg Documented by: JUANIS Phenobarbital (Phenobarbital 30 Mg Tablet) 30 mg PO BID [facility] Stop: 11/11/21 09:01 Phenobarbital (Phenobarbital 30 Mg Tablet) 30 mg PO DAILY [facility] Stop: 11/13/21 09:01 Prednisolone Sodium Phosphate (Prednisolone Sodium Phosphate 15 Mg/5 Ml Solution) 40 mg PO DAILY [facility] Last Admin: 11/08/21 09:16 Dose: Not Given Documented by: JUANIS Non-Admin Reason: Med Not Available Sodium Chloride (0.9 % Sodium Chloride Flush 3 Ml Syringe) 3 ml IVFLUSH QSHIFT [facility] Last Admin: 11/08/21 09:14 Dose: 3 ml Documented by: JUANIS Thiamine HCl (Thiamine Hcl 100 Mg Tablet) 100 mg PO DAILY [facility] Last Admin: 11/08/21 09:12 Dose: 100 mg Documented by: JUANIS Labs CBC & Chem 7: 11/08/21 08:17 11/08/21 08:17 Labs: Laboratory Results - last 24 hr 11/07/21 11/07/21 11/07/21 14:07 14:27 14:27 MCV MCH MCHC RDW Plt Count MPV Absolute Nucleated RBC Nucleated RBC % (auto) PT INR APTT Anion Gap 16 Estim Creat Clear Calc 210.2 Estimated GFR > 60 Random Glucose 118 H Calcium 7.7 L Iron 128 TIBC < 145 L % Saturation TNP Unsat Iron Binding < 17 Total Bilirubin Direct Bilirubin AST ALT Alkaline Phosphatase Total Protein Albumin Vitamin B12 1211 H Folate 1.8 L Peritoneal WBC Peritoneal RBC Periton Neutrophils Periton Lymphocytes Peritoneal Monocytes Peritoneal Other Cells Stool Occult Blood Hepatitis A IgM Ab Cancelled Hep Bs Antigen Cancelled Hep Bs Antibody Cancelled Hep B Core Total Ab Cancelled Hepatitis C Ab (EIA) Cancelled HIV 1&2 Ab/P24 Ag 4thGn 11/07/21 11/07/21 11/07/21 15:51 15:51 19:36 MCV MCH MCHC RDW Plt Count MPV Absolute Nucleated RBC Nucleated RBC % (auto) PT 26.1 H INR 2.3 H APTT 47.8 H Anion Gap Estim Creat Clear Calc Estimated GFR Random Glucose Calcium Iron TIBC % Saturation Unsat Iron Binding Total Bilirubin Direct Bilirubin AST ALT Alkaline Phosphatase Total Protein Albumin Vitamin B12 Folate Peritoneal WBC Peritoneal RBC Periton Neutrophils Periton Lymphocytes Peritoneal Monocytes Peritoneal Other Cells Stool Occult Blood Hepatitis A IgM Ab Hep Bs Antigen Negative Hep Bs Antibody REACTIVE Hep B Core Total Ab Nonreactive Hepatitis C Ab (EIA) Nonreactive HIV 1&2 Ab/P24 Ag 4thGn Nonreactive 11/08/21 11/08/21 11/08/21 08:17 08:17 08:17 MCV 87.4 MCH 32.3 MCHC 36.9 H RDW 17.5 H Plt Count 93 L MPV 9.8 Absolute Nucleated RBC 0.000 Nucleated RBC % (auto) 0.0 PT 27.5 H INR 2.4 H APTT Anion Gap 14 Estim Creat Clear Calc 212.9 Estimated GFR > 60 Random Glucose 124 H Calcium 7.9 L Iron TIBC % Saturation Unsat Iron Binding Total Bilirubin 24.7 H Direct Bilirubin 17.2 H AST 258 H ALT 97 H Alkaline Phosphatase 246 H Total Protein 6.1 L Albumin 2.8 L Vitamin B12 Folate Peritoneal WBC Peritoneal RBC Periton Neutrophils Periton Lymphocytes Peritoneal Monocytes Peritoneal Other Cells Stool Occult Blood Hepatitis A IgM Ab Hep Bs Antigen Hep Bs Antibody Hep B Core Total Ab Hepatitis C Ab (EIA) HIV 1&2 Ab/P24 Ag 4thGn 11/08/21 11/08/21 09:50 11:15 MCV MCH MCHC RDW Plt Count MPV Absolute Nucleated RBC Nucleated RBC % (auto) PT INR APTT Anion Gap Estim Creat Clear Calc Estimated GFR Random Glucose Calcium Iron TIBC % Saturation Unsat Iron Binding Total Bilirubin Direct Bilirubin AST ALT Alkaline Phosphatase Total Protein Albumin Vitamin B12 Folate Peritoneal WBC 0.129 Peritoneal RBC 0.003 Periton Neutrophils 22 Periton Lymphocytes 41 Peritoneal Monocytes 17 Peritoneal Other Cells 20 Stool Occult Blood POSITIVE Hepatitis A IgM Ab Hep Bs Antigen Hep Bs Antibody Hep B Core Total Ab Hepatitis C Ab (EIA) HIV 1&2 Ab/P24 Ag 4thGn Microbiology Microbiology Results: Microbiology 11/08/21 09:50 Gram Stain - Final Abdominal Fluid Assessment and Plan (1) Hyponatremia: Status: Acute (2) Ascites due to alcoholic cirrhosis: Status: Acute (3) Alcohol abuse: Status: Acute (4) Acute hepatic encephalopathy: Status: Acute (5) Acute alcoholic liver disease: Status: Acute (6) Acute on chronic blood loss anemia: Status: Acute Plan ?a 59 years old male with PMH of schizophrenia, HTN, diabetes and alcoholism who presents to the hospital by ambulance for suicidal ideation admitted to the psych floor were he developed worsening symptoms of confusion and? hallucination.? 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 Zinc started folic acid and thiamine GI input appreciated, to do EGD as outpatient Hold beta-javid for now Continue lactulose with goal of 2 bowel movements a day alcohol abuse High risk for withdrawal continue phenobarbital protocol mutlivitamins and CIWA scoring adduction team evaluation Ascites Received a dose of Lasix , hold further diuretics for now maintain on low sodium diet monitor electrolytes before starting diuresis paracentesis and pending cell counts and SAAG hyponatremia Secondary to dilution from cirrhosis monitor for now, received a dose of Lasix of Goal to keep it around 128 or above hypokalemia Potassium of 2.8 Received replacement Follow BMP Iron deficiency anemia Likely secondary to cirrhosis positive occult blood , likely chronic close low iron profile , start iron supplement thrombocytopenia Secondary to alcoholism Monitor, no active bleeding noticed DVT PPX DC heparin, SCDs Quality Stroke Does the patient have a stroke diagnosis?: No VTE Prior VTE?: No VTE Risk Level:: Medical - moderate - high VTE Device Contraindication: Treatment Not Indicated VTE Drug Contraindication: N/A - Med Ordered
--- NOTE | 2021-11-08 14:24 | MHC.CLN ---
RECOMMEND CHANGING SUPPLEMENT TO ENSURE ENLIVE TID TO PROVIDE 1050KCALS, 60G PROTEIN, 540ML FREE WATER (180ML FREE WATER IN EACH 8OZ SUPPLEMENT) FOR FLUID RESTRICTION
[2021-11-08] MEDS: nadoloL 20 MG TABLET PO (14:52)
[2021-11-08] MEDS: Spironolactone 25 MG TABLET 12.5 MG PO (14:52)
--- NOTE | 2021-11-08 14:54 | HO.ADDICT_ITS ---
History of Present Illness Date of Service: 11/08/2021 Chief Complaint: Jaundice, edema Reason for Consult: Alcohol use disorder Requesting physician: Joellen Dudley Discussed with referring provider: No Sources of Information: patient interviewed and chart reviewed HPI Narrative: Patient is a 31-year-old male currently medically admitted with hepatic encephalopathy, ascites secondary to liver cirrhosis and alcohol withdrawal. Consult requested for assessment and treatment recommendations related to alcohol use disorder. Patient seen in room 379, awake (from most of the interview), pleasant and overall engaged in interview--somewhat tangential and circumstantial. Patient's mother present during the interview. Does not appear to be experiencing acute alcohol withdrawal symptoms. Currently on phenobarbital protocol. discussed current alcohol use, he reports that he has been drinking approximately 1 pt of hard alcohol every day , for at least 3-5 years. He reports attempts to either cut down or stop drinking on his own and states that his longest period in recovery has been from 1-2 weeks up to 2 months. Denies any history of treatment both outpatient or inpatient. Denies any history of alcohol-related seizures. Denies any other substance use. Reports family history of alcohol use disorder. Discussed different treatment options including medications and recovery supports. At time of interview patient not expressing interest or disinterest in medications, however open to receiving material to read about options that were discussed. Both patient and his mother requiring support and reeducation around current health issues and direct correlation with alcohol use. Review of Systems Constitutional: Reports as per HPI and Reports difficulty sleeping Diagnostics Vital Signs (24Hr): Vital Signs - 24 hr 11/07/21 15:18 11/07/21 15:54 11/07/21 16:00 Temperature 98.9 F 98.0 F Pulse Rate 101 H 103 H 101 H Respiratory Rate 21 H 20 18 Blood Pressure 155/82 H 150/90 H 169/90 H Pulse Oximetry 94 95 98 11/07/21 20:00 11/07/21 23:25 11/08/21 03:31 Temperature 98.0 F 98.8 F 99.5 F Pulse Rate 101 H 115 H 120 H Respiratory Rate 18 18 20 Blood Pressure 169/90 H 163/88 H 160/86 H Pulse Oximetry 98 96 97 11/08/21 07:07 11/08/21 11:21 Temperature 98.1 F 97.5 F Pulse Rate 120 H 118 H Respiratory Rate 18 18 Blood Pressure 141/76 H 168/78 H Pulse Oximetry 94 95 BMI result Body Mass Index 45.7 Labs Results: 11/08/21 08:17 11/08/21 08:17 Labs: Laboratory Results - last 48 hr 11/07/21 11/07/21 11/07/21 09:00 09:00 09:00 WBC 12.2 H RBC 3.82 L Hgb 12.2 L Hct 34.1 L MCV 89.3 MCH 31.9 MCHC 35.8 RDW 18.2 H Plt Count 107 L MPV 9.7 Immature Gran % (Auto) 0.9 H Neut % (Auto) 88.2 H Lymph % (Auto) 4.8 L [place] % (Auto) 5.1 Eos % (Auto) 0.5 Baso % (Auto) 0.5 Lymph # (Auto) 0.6 L [place] # (Auto) 0.6 Eos # (Auto) 0.1 Baso # (Auto) 0.1 Abs Immat Gran (auto) 0.11 H Absolute Neuts (auto) 10.8 H Absolute Nucleated RBC 0.000 Nucleated RBC % (auto) 0.0 PT INR APTT Sodium 128 L Potassium 5.4 H Chloride 92 L Carbon Dioxide 23 Anion Gap 18 BUN 8 L Creatinine 0.65 Estim Creat Clear Calc 255.5 Estimated GFR > 60 Random Glucose 127 H Calcium 7.5 L Iron TIBC % Saturation Unsat Iron Binding Total Bilirubin 23.4 H Direct Bilirubin AST 383 H ALT 106 H Alkaline Phosphatase 245 H Ammonia Troponin I High Sens 4.7 Total Protein 7.4 Albumin 2.8 L Vitamin B12 Folate Peritoneal WBC Peritoneal RBC Periton Neutrophils Periton Lymphocytes Peritoneal Monocytes Peritoneal Other Cells Stool Occult Blood COVID-19 ([facility]) COVID-19 Clin Com Hepatitis A IgM Ab Hep Bs Antigen Hep Bs Antibody Hep B Core Total Ab Hepatitis C Ab (EIA) HIV 1&2 Ab/P24 Ag 4thGn 11/07/21 11/07/21 11/07/21 09:00 09:17 14:07 WBC RBC Hgb Hct MCV MCH MCHC RDW Plt Count MPV Immature Gran % (Auto) Neut % (Auto) Lymph % (Auto) [place] % (Auto) Eos % (Auto) Baso % (Auto) Lymph # (Auto) [place] # (Auto) Eos # (Auto) Baso # (Auto) Abs Immat Gran (auto) Absolute Neuts (auto) Absolute Nucleated RBC Nucleated RBC % (auto) PT INR APTT Sodium Potassium Chloride Carbon Dioxide Anion Gap BUN Creatinine Estim Creat Clear Calc Estimated GFR Random Glucose Calcium Iron TIBC % Saturation Unsat Iron Binding Total Bilirubin Direct Bilirubin AST ALT Alkaline Phosphatase Ammonia 105 H Troponin I High Sens Total Protein Albumin Vitamin B12 Folate Peritoneal WBC Peritoneal RBC Periton Neutrophils Periton Lymphocytes Peritoneal Monocytes Peritoneal Other Cells Stool Occult Blood COVID-19 ([facility]IS) Negative COVID-19 Clin Com See Note Hepatitis A IgM Ab Cancelled Hep Bs Antigen Cancelled Hep Bs Antibody Cancelled Hep B Core Total Ab Cancelled Hepatitis C Ab (EIA) Cancelled HIV 1&2 Ab/P24 Ag 4thGn 11/07/21 11/07/21 11/07/21 14:27 14:27 15:51 WBC RBC Hgb Hct MCV MCH MCHC RDW Plt Count MPV Immature Gran % (Auto) Neut % (Auto) Lymph % (Auto) [place] % (Auto) Eos % (Auto) Baso % (Auto) Lymph # (Auto) [place] # (Auto) Eos # (Auto) Baso # (Auto) Abs Immat Gran (auto) Absolute Neuts (auto) Absolute Nucleated RBC Nucleated RBC % (auto) PT 26.1 H INR 2.3 H APTT 47.8 H Sodium 128 L Potassium 3.1 L D Chloride 90 L Carbon Dioxide 25 Anion Gap 16 BUN 8 L Creatinine 0.79 Estim Creat Clear Calc 210.2 Estimated GFR > 60 Random Glucose 118 H Calcium 7.7 L Iron 128 TIBC < 145 L % Saturation TNP Unsat Iron Binding < 17 Total Bilirubin Direct Bilirubin AST ALT Alkaline Phosphatase Ammonia Troponin I High Sens Total Protein Albumin Vitamin B12 1211 H Folate 1.8 L Peritoneal WBC Peritoneal RBC Periton Neutrophils Periton Lymphocytes Peritoneal Monocytes Peritoneal Other Cells Stool Occult Blood COVID-19 (EDIS) COVID-19 Clin Com Hepatitis A IgM Ab Hep Bs Antigen Hep Bs Antibody Hep B Core Total Ab Hepatitis C Ab (EIA) HIV 1&2 Ab/P24 Ag 4thGn 11/07/21 11/07/21 11/08/21 15:51 19:36 08:17 WBC 10.4 RBC 3.50 L Hgb 11.3 L Hct 30.6 L MCV 87.4 MCH 32.3 MCHC 36.9 H RDW 17.5 H Plt Count 93 L MPV 9.8 Immature Gran % (Auto) Neut % (Auto) Lymph % (Auto) [place] % (Auto) Eos % (Auto) Baso % (Auto) Lymph # (Auto) [place] # (Auto) Eos # (Auto) Baso # (Auto) Abs Immat Gran (auto) Absolute Neuts (auto) Absolute Nucleated RBC 0.000 Nucleated RBC % (auto) 0.0 PT INR APTT Sodium Potassium Chloride Carbon Dioxide Anion Gap BUN Creatinine Estim Creat Clear Calc Estimated GFR Random Glucose Calcium Iron TIBC % Saturation Unsat Iron Binding Total Bilirubin Direct Bilirubin AST ALT Alkaline Phosphatase Ammonia Troponin I High Sens Total Protein Albumin Vitamin B12 Folate Peritoneal WBC Peritoneal RBC Periton Neutrophils Periton Lymphocytes Peritoneal Monocytes Peritoneal Other Cells Stool Occult Blood COVID-19 (EDIS) COVID-19 Clin Com Hepatitis A IgM Ab Hep Bs Antigen Negative Hep Bs Antibody REACTIVE Hep B Core Total Ab Nonreactive Hepatitis C Ab (EIA) Nonreactive HIV 1&2 Ab/P24 Ag 4thGn Nonreactive 11/08/21 11/08/21 11/08/21 08:17 08:17 09:50 WBC RBC Hgb Hct MCV MCH MCHC RDW Plt Count MPV Immature Gran % (Auto) Neut % (Auto) Lymph % (Auto) [place] % (Auto) Eos % (Auto) Baso % (Auto) Lymph # (Auto) [place] # (Auto) Eos # (Auto) Baso # (Auto) Abs Immat Gran (auto) Absolute Neuts (auto) Absolute Nucleated RBC Nucleated RBC % (auto) PT 27.5 H INR 2.4 H APTT Sodium 128 L Potassium 2.8 L Chloride 92 L Carbon Dioxide 25 Anion Gap 14 BUN 12 Creatinine 0.78 Estim Creat Clear Calc 212.9 Estimated GFR > 60 Random Glucose 124 H Calcium 7.9 L Iron TIBC % Saturation Unsat Iron Binding Total Bilirubin 24.7 H Direct Bilirubin 17.2 H AST 258 H ALT 97 H Alkaline Phosphatase 246 H Ammonia Troponin I High Sens Total Protein 6.1 L Albumin 2.8 L Vitamin B12 Folate Peritoneal WBC 0.129 Peritoneal RBC 0.003 Periton Neutrophils 22 Periton Lymphocytes 41 Peritoneal Monocytes 17 Peritoneal Other Cells 20 Stool Occult Blood COVID-19 (EDIS) COVID-19 Clin Com Hepatitis A IgM Ab Hep Bs Antigen Hep Bs Antibody Hep B Core Total Ab Hepatitis C Ab (EIA) HIV 1&2 Ab/P24 Ag 4thGn 11/08/21 11:15 WBC RBC Hgb Hct MCV MCH MCHC RDW Plt Count MPV Immature Gran % (Auto) Neut % (Auto) Lymph % (Auto) [place] % (Auto) Eos % (Auto) Baso % (Auto) Lymph # (Auto) [place] # (Auto) Eos # (Auto) Baso # (Auto) Abs Immat Gran (auto) Absolute Neuts (auto) Absolute Nucleated RBC Nucleated RBC % (auto) PT INR APTT Sodium Potassium Chloride Carbon Dioxide Anion Gap BUN Creatinine Estim Creat Clear Calc Estimated GFR Random Glucose Calcium Iron TIBC % Saturation Unsat Iron Binding Total Bilirubin Direct Bilirubin AST ALT Alkaline Phosphatase Ammonia Troponin I High Sens Total Protein Albumin Vitamin B12 Folate Peritoneal WBC Peritoneal RBC Periton Neutrophils Periton Lymphocytes Peritoneal Monocytes Peritoneal Other Cells Stool Occult Blood POSITIVE COVID-19 (EDIS) COVID-19 Clin Com Hepatitis A IgM Ab Hep Bs Antigen Hep Bs Antibody Hep B Core Total Ab Hepatitis C Ab (EIA) HIV 1&2 Ab/P24 Ag 4thGn Imaging Radiology Impressions: ITS Impressions Chest X-Ray 11/07/21 09:35 IMPRESSION: Unremarkable examination. Abdomen/Pelvis CT 11/07/21 11:02 IMPRESSION: - Hepatomegaly with nodular surface of the liver suggestive of cirrhosis. - Evidence for portal venous hypertension, including splenomegaly, recanalized umbilical vein as well as abdominal wall, splenorenal, and gastroesophageal varices. There is also a small to moderate amount of ascites and body wall anasarca. - Intraluminal contents of the gallbladder have high density, which may represent multiple small stones versus proteinaceous sludge. There is gallbladder wall thickening, which can be seen in the setting of ascites/intrinsic liver disease. -1.1 cm ovoid intermediate density focus in the mid polar region of the left kidney, may represent a hemorrhagic cyst. Further evaluation can be obtained with renal ultrasound. Mental Status Exam Mental Status Exam Patient Appearance: Appropriate Patient Orientation: Person, Place and Situation Level of Consciousness: Awake and Drowsy (Towards the end of interview) Mood Description: Calm Affect Description: Calm Thought Process: Linear Thought Content: positive for [place] and positive for Circumstantial Judgement: Fair Medications Medications Current Medications Acetaminophen (Acetaminophen 325 Mg Tablet) 650 mg PO Q6H PRN PRN Reason: Pain, Mild (Pain Scale 1-3) Ferrous Sulfate (Ferrous Sulfate 324 Mg Tablet.) 324 mg PO BIDWM [facility] Last Admin: 11/08/21 09:12 Dose: 324 mg Documented by: Folic Acid (Folic Acid 1 Mg Tablet) 1 mg PO DAILY [facility] Last Admin: 11/08/21 09:12 Dose: 1 mg Documented by: Lactulose (Lactulose 20 Gm/30 Ml Solution) 10 gm PO BID [facility] Last Admin: 11/08/21 09:13 Dose: 10 gm Documented by: Nadolol (Nadolol 20 Mg Tablet) 20 mg PO DAILY [facility]; Protocol Last Admin: 11/08/21 14:52 Dose: 20 mg Documented by: Omeprazole (Omeprazole 40 Mg Capsule.Dr) 40 mg PO BID@0630,1630 [facility] Last Admin: 11/08/21 06:24 Dose: 40 mg Documented by: Ondansetron HCl (Ondansetron Hcl 4 Mg/2 Ml Vial) 4 mg IVPUSH Q8H PRN PRN Reason: Nausea and Vomiting Pharmacy Consult (Consult Rx Etoh Phenob Po Dose) 1 each MISCELLANE DAILY PRN PRN Reason: Consult order Pharmacy Consult (Consult Rx Perform Med Rec) 1 each MISCELLANE ONCE PRN PRN Reason: Consult order Phenobarbital (Phenobarbital 30 Mg Tablet) 60 mg PO BID [facility] Stop: 11/09/21 09:01 Last Admin: 11/08/21 09:12 Dose: 60 mg Documented by: Phenobarbital (Phenobarbital 30 Mg Tablet) 30 mg PO BID [facility] Stop: 11/11/21 09:01 Phenobarbital (Phenobarbital 30 Mg Tablet) 30 mg PO DAILY [facility] Stop: 11/13/21 09:01 Prednisolone Sodium Phosphate (Prednisolone Sodium Phosphate 15 Mg/5 Ml S olution) 40 mg PO DAILY [facility] Last Admin: 11/08/21 09:16 Dose: Not Given Documented by: Sodium Chloride (0.9 % Sodium Chloride Flush 3 Ml Syringe) 3 ml IVFLUSH QSHIFT [facility] Last Admin: 11/08/21 09:14 Dose: 3 ml Documented by: Spironolactone (Spironolactone 25 Mg Tablet) 12.5 mg PO DAILY [facility]; Protocol Last Admin: 11/08/21 14:52 Dose: 12.5 mg Documented by: Thiamine HCl (Thiamine Hcl 100 Mg Tablet) 100 mg PO DAILY [facility] Last Admin: 11/08/21 09:12 Dose: 100 mg Documented by: Allergies Allergies Allergy/AdvReac Type Severity Reaction Status Date / Time No Known Allergies Allergy Verified 11/07/21 08:34 Assessment & Plan Assessment & Plan (1) Alcohol use disorder, severe, dependence: Status: Acute Code(s): F10.20 - Alcohol dependence, uncomplicated Assessment and Plan: * Recovery it technical support specialist to follow up with patient and provide written information on medications and recovery supports * Follow up tomorrow to answer any questions I spent __40____ minutes with the patient and/or on the patient floor today, greater than?50% of which was spent counseling/coordinating care. [facility] Social History Social History Household Members: None Housing: Apartment Do you presently have visiting nurse or other home services: No Alcohol intake: current Alcohol type: hard liquor Patient Tobacco Use Status: Current someday Tobacco user Tobacco use type: Cigarette and Cigar Cigarettes Per Day: 3 Years Smoked: 5 Substance Use Type: Marijuana
--- NOTE | 2021-11-08 15:03 | P.PNIM_ITS ---
Subjective Subjective Date of Service: 11/08/21 Interval History: seen and evaluated this morning Reporting feels mild improvement since yesterday next [place] denies any fever, chills, abdominal pain Bilirubin still increasing with improvement of transaminitis No significant symptoms of withdrawal Review of Systems No fever, chills or weakness No chest pain, palpitation improvement in shortness of breath, no coughing No abdominal pain, nausea or vomiting, having bowel movement but still feeling distended No urinary symptoms No any rash or wounds jaundice Physical Exam Vital Signs: Vital Signs: Last Vital Signs Temp 97.5 F 11/08/21 11:21 Pulse 118 H 11/08/21 11:21 Resp 18 11/08/21 11:21 BP 168/78 H 11/08/21 11:21 Pulse Ox 95 11/08/21 11:21 BMI result Body Mass Index 45.7 Const: Other: Constitutional : Alert, interact, not in distress, morbidly obese Neck : Normal inspection, Supple Cardiovascular : RRR, elevated JVP, +2 bilateral lower extremity edema up to mid thigh Respiratory : decreased basal bilateral air entry, nocrackles, wheezes or rhonchi Gastrointestinal: soft, lax, not tender, distended with mild to moderate amount of ascites Skin : Warm, Dry Neurological : Alert & oriented x3, No focal deficit , CN 2-12 within normal Objective Data Active Medications Acetaminophen (Acetaminophen 325 Mg Tablet) 650 mg PO Q6H PRN PRN Reason: Pain, Mild (Pain Scale 1-3) Ferrous Sulfate (Ferrous Sulfate 324 Mg Tablet.) 324 mg PO BIDWM [facility] Last Admin: 11/08/21 09:12 Dose: 324 mg Documented by: JUANIS Folic Acid (Folic Acid 1 Mg Tablet) 1 mg PO DAILY [facility] Last Admin: 11/08/21 09:12 Dose: 1 mg Documented by: JUANIS Lactulose (Lactulose 20 Gm/30 Ml Solution) 10 gm PO BID [facility] Last Admin: 11/08/21 09:13 Dose: 10 gm Documented by: JUANIS Nadolol (Nadolol 20 Mg Tablet) 20 mg PO DAILY [facility]; Protocol Last Admin: 11/08/21 14:52 Dose: 20 mg Documented by: JUANIS Omeprazole (Omeprazole 40 Mg Capsule.) 40 mg PO BID@0630,1630 [facility] Last Admin: 11/08/21 06:24 Dose: 40 mg Documented by: ENMANUEL Ondansetron HCl (Ondansetron Hcl 4 Mg/2 Ml Vial) 4 mg IVPUSH Q8H PRN PRN Reason: Nausea and Vomiting Pharmacy Consult (Consult Rx Etoh Phenob Po Dose) 1 each MISCELLANE DAILY PRN PRN Reason: Consult order Pharmacy Consult (Consult Rx Perform Med Rec) 1 each MISCELLANE ONCE PRN PRN Reason: Consult order Phenobarbital (Phenobarbital 30 Mg Tablet) 60 mg PO BID [facility] Stop: 11/09/21 09:01 Last Admin: 11/08/21 09:12 Dose: 60 mg Documented by: JUANIS Phenobarbital (Phenobarbital 30 Mg Tablet) 30 mg PO BID [facility] Stop: 11/11/21 09:01 Phenobarbital (Phenobarbital 30 Mg Tablet) 30 mg PO DAILY [facility] Stop: 11/13/21 09:01 Prednisolone Sodium Phosphate (Prednisolone Sodium Phosphate 15 Mg/5 Ml Solution) 40 mg PO DAILY [facility] Last Admin: 11/08/21 09:16 Dose: Not Given Documented by: JUANIS Non-Admin Reason: Med Not Available Sodium Chloride (0.9 % Sodium Chloride Flush 3 Ml Syringe) 3 ml IVFLUSH QSHIFT [facility] Last Admin: 11/08/21 09:14 Dose: 3 ml Documented by: JUANIS Spironolactone (Spironolactone 25 Mg Tablet) 12.5 mg PO DAILY [facility]; Protocol Last Admin: 11/08/21 14:52 Dose: 12.5 mg Documented by: JUANIS Thiamine HCl (Thiamine Hcl 100 Mg Tablet) 100 mg PO DAILY [facility] Last Admin: 11/08/21 09:12 Dose: 100 mg Documented by: JUANIS Labs CBC & Chem 7: 11/08/21 08:17 11/08/21 08:17 Labs: Laboratory Results - last 24 hr 11/07/21 11/07/21 11/07/21 14:07 14:27 14:27 MCV MCH MCHC RDW Plt Count MPV Absolute Nucleated RBC Nucleated RBC % (auto) PT INR APTT Anion Gap 16 Estim Creat Clear Calc 210.2 Estimated GFR > 60 Random Glucose 118 H Calcium 7.7 L Iron 128 TIBC < 145 L % Saturation TNP Unsat Iron Binding < 17 Total Bilirubin Direct Bilirubin AST ALT Alkaline Phosphatase Total Protein Albumin Vitamin B12 1211 H Folate 1.8 L Peritoneal WBC Peritoneal RBC Periton Neutrophils Periton Lymphocytes Peritoneal Monocytes Peritoneal Other Cells Stool Occult Blood Hepatitis A IgM Ab Cancelled Hep Bs Antigen Cancelled Hep Bs Antibody Cancelled Hep B Core Total Ab Cancelled Hepatitis C Ab (EIA) Cancelled HIV 1&2 Ab/P24 Ag 4thGn 11/07/21 11/07/21 11/07/21 15:51 15:51 19:36 MCV MCH MCHC RDW Plt Count MPV Absolute Nucleated RBC Nucleated RBC % (auto) PT 26.1 H INR 2.3 H APTT 47.8 H Anion Gap Estim Creat Clear Calc Estimated GFR Random Glucose Calcium Iron TIBC % Saturation Unsat Iron Binding Total Bilirubin Direct Bilirubin AST ALT Alkaline Phosphatase Total Protein Albumin Vitamin B12 Folate Peritoneal WBC Peritoneal RBC Periton Neutrophils Periton Lymphocytes Peritoneal Monocytes Peritoneal Other Cells Stool Occult Blood Hepatitis A IgM Ab Hep Bs Antigen Negative Hep Bs Antibody REACTIVE Hep B Core Total Ab Nonreactive Hepatitis C Ab (EIA) Nonreactive HIV 1&2 Ab/P24 Ag 4thGn Nonreactive 11/08/21 11/08/21 11/08/21 08:17 08:17 08:17 MCV 87.4 MCH 32.3 MCHC 36.9 H RDW 17.5 H Plt Count 93 L MPV 9.8 Absolute Nucleated RBC 0.000 Nucleated RBC % (auto) 0.0 PT 27.5 H INR 2.4 H APTT Anion Gap 14 Estim Creat Clear Calc 212.9 Estimated GFR > 60 Random Glucose 124 H Calcium 7.9 L Iron TIBC % Saturation Unsat Iron Binding Total Bilirubin 24.7 H Direct Bilirubin 17.2 H AST 258 H ALT 97 H Alkaline Phosphatase 246 H Total Protein 6.1 L Albumin 2.8 L Vitamin B12 Folate Peritoneal WBC Peritoneal RBC Periton Neutrophils Periton Lymphocytes Peritoneal Monocytes Peritoneal Other Cells Stool Occult Blood Hepatitis A IgM Ab Hep Bs Antigen Hep Bs Antibody Hep B Core Total Ab Hepatitis C Ab (EIA) HIV 1&2 Ab/P24 Ag 4thGn 11/08/21 11/08/21 09:50 11:15 MCV MCH MCHC RDW Plt Count MPV Absolute Nucleated RBC Nucleated RBC % (auto) PT INR APTT Anion Gap Estim Creat Clear Calc Estimated GFR Random Glucose Calcium Iron TIBC % Saturation Unsat Iron Binding Total Bilirubin Direct Bilirubin AST ALT Alkaline Phosphatase Total Protein Albumin Vitamin B12 Folate Peritoneal WBC 0.129 Peritoneal RBC 0.003 Periton Neutrophils 22 Periton Lymphocytes 41 Peritoneal Monocytes 17 Peritoneal Other Cells 20 Stool Occult Blood POSITIVE Hepatitis A IgM Ab Hep Bs Antigen Hep Bs Antibody Hep B Core Total Ab Hepatitis C Ab (EIA) HIV 1&2 Ab/P24 Ag 4thGn Microbiology Microbiology Results: Microbiology 11/08/21 09:50 Gram Stain - Final Abdominal Fluid Assessment and Plan (1) Acute on chronic blood loss anemia: Status: Acute (2) Hyponatremia: Status: Acute (3) Ascites due to alcoholic cirrhosis: Status: Acute (4) Alcohol abuse: Status: Acute (5) Acute hepatic encephalopathy: Status: Acute (6) Acute alcoholic liver disease: Status: Acute Plan ?a 31 years old male with PMH of? alcohol abuse and morbid obesity presents to the hospital complaining of increasing edema,? jaundice and generalized weakness for the last 3 weeks.?? acute hepatic encephalopathy , resolved 2/2 Decompensated alcoholic liver cirrhosis Evidence of cirrhosis on CT abdomen Maddery risk score of 99 today, expected poor outcome overall pending 2ndry causes AIH, hemochromatosis, negative viral hepatitis tapering dose prednisone over 4 weeks, started 11/07 PO omeprazole high protein and calorie diet, to get ceramist evaluation pending Zinc started folic acid and thiamine start Nadolol old 20 mg daily Start spironolactone 12.5 mg daily GI input appreciated, to do EGD as outpatient Hold beta-javid for now Continue lactulose with goal of 2 bowel movements a day alcohol abuse High risk for withdrawal continue phenobarbital protocol mutlivitamins and CIWA scoring adduction team evaluation Ascites Received a dose of Lasix , hold further diuretics for now maintain on low sodium diet monitor electrolytes before starting diuresis paracentesis and pending cell counts and SAAG hyponatremia Secondary to dilution from cirrhosis monitor for now, received a dose of Lasix of Goal to keep it around 128 or above hypokalemia Potassium of 2.8 Received replacement Follow BMP Iron deficiency anemia Likely secondary to cirrhosis positive occult blood , likely chronic close low iron profile , start iron supplement thrombocytopenia Secondary to alcoholism Monitor, no active bleeding noticed DVT PPX DC heparin, SCDs Quality Stroke Does the patient have a stroke diagnosis?: No VTE Prior VTE?: No VTE Risk Level:: Medical - moderate - high VTE Device Contraindication: Treatment Not Indicated VTE Drug Contraindication: N/A - Med Ordered
[2021-11-08 15:25] VITALS: BP 143/98; PULSE 111; RESP 18; TEMP 36.9; O2SAT 90
[2021-11-08 15:44] VITALS: BP 143/68; PULSE 105; RESP 18; TEMP 36.4; O2SAT 90
--- NOTE | 2021-11-08 17:59 | MHC.RECOVSUP ---
Recovery Support note: Patient is a 31 year old Afghan speaking male who presented to [facility] due to jaundice and confusion. This technical proposal writer met with patient to discuss alcohol use and recovery supports. Patient reports he has tried to stop drinking several times in the past and has been able to maintain sobriety for up to a month. Discussed with patient that he can completely abstain from alcohol after discharge without fear of withdrawal. Patient acknowledged. Patient reports confidence in his ability to stop drinking, stating that he doesn't really have a choice due to the severity of his medical condition. Discussed outpatient recovery supports with patient. Patient reports he is not interested in individual therapy or any form of group support. Patient reports he finds it helpful to go outside and go for light walks or go fishing. Encouraged patient to continue doing what works for him. Patient accepted information on medications for alcohol use disorder. Discussed AA literature with patient and provided him with a copy of [facility]. Patient has contact information for this technical proposal writer in the event that he would like additional resources or referrals.
[2021-11-08 23:26] VITALS: BP 129/58; PULSE 88; RESP 18; TEMP 36.8; O2SAT 94
[2021-11-09] VITALS (7 sets, daily range): BP systolic 114–138; BP diastolic 60–82; PULSE 87–94; RESP 18–19; TEMP 36.5–37.1; O2SAT 93–97
[2021-11-09] MEDS: 0.9 % Sodium Chloride Flush 3 ML SYRINGE IVFLUSH ×4 (00:57→21:18)
--- NOTE | 2021-11-09 01:39 | PC.NURSE ---
Patient continues to refuse bed alarm despite being educated on risks.
[2021-11-09] MEDS: Omeprazole 40 MG CAPSULE.DR PO ×2 (06:11→17:04)
[2021-11-09 06:22] LABS: Hematocrit 29.7 % (42.0-52.0); Hemoglobin 10.8 g/dl (14.0-18.0); Mean Corpuscular HGB Conc 36.4 g/dl (31.0-36.0); Mean Corpuscular Hemoglobin 32.4 pg (27.0-33.0); Mean Corpuscular Volume 89.2 fL (80.0-98.0); Mean Platelet Volume 10.7 fL (9.4-12.4); Red Blood Count 3.33 X10*6/uL (4.60-5.80); Red Cell Distribution Width 17.3 % (11.0-16.0); White Blood Count 9.6 X10*3/uL (4.8-10.8)
[2021-11-09 06:27] LABS: INTERNATIONAL NORM RATIO 2.4 (0.9-1.1); Prothrombin Time 28.1 SEC (9.9-13.0)
[2021-11-09 06:28] LABS: Platelet Count 98 X10*3/uL (160-400)
[2021-11-09 06:40] LABS: Anion Gap 11 (12-20); Blood Urea Nitrogen 15 mg/dL (9-16); Calcium 8.2 mg/dL (8.4-10.2); Carbon Dioxide 26 mmol/L (22-29); Chloride 94 mmol/L (96-108); Creatinine Clr Calc Pharmacy 188.7; Estimated Glomerular Filt Rate > 60; Glucose Random 115 mg/dL (60-115); Potassium 3.3 mmol/L (3.3-5.1); Sodium 128 mmol/L (135-145)
[2021-11-09 06:43] LABS: B Type Natriuretic Peptide 237 pg/mL (<100)
[2021-11-09 06:55] LABS: Alanine Aminotransferase 74 U/L (0-40); Albumin Level 2.5 g/dL (3.5-5.0); Alkaline Phosphatase 203 U/L (39-117); Aspartate Amino Transferase 186 U/L (5-37); Total Protein 5.7 g/dL (6.5-8.0)
[2021-11-09 07:16] LABS: Bilirubin Direct 19.7 mg/dL (0.0-0.5); Bilirubin Total 28.2 mg/dL (0.0-1.0)
[2021-11-09 07:31] LABS: Magnesium 1.1 mg/dL (1.6-2.6)
[2021-11-09 07:32] LABS: LDH Peritoneal Fluid 83; Total Protein Peritoneal Fluid 1.4
[2021-11-09 07:33] LABS: Glucose Peritoneal Fluid 150; pH Peritoneal Fluid 7.61
[2021-11-09] MEDS: Folic Acid 1 MG TABLET PO (09:48)
[2021-11-09] MEDS: Ferrous Sulfate 324 MG TABLET.DR PO ×2 (09:48→17:04)
[2021-11-09] MEDS: Thiamine HCL 100 MG TABLET PO (09:48)
[2021-11-09] MEDS: Lactulose 20 GM/30 ML SOLUTION 10 GM PO ×2 (09:49→21:17)
[2021-11-09] MEDS: nadoloL 20 MG TABLET PO (09:50)
[2021-11-09] MEDS: Spironolactone 25 MG TABLET 12.5 MG PO (09:50)
[2021-11-09] MEDS: PHENobarbitaL 30 MG TABLET 60 MG PO (09:51)
[2021-11-09] MEDS: Magnesium Sulfate/H2O 2 GM/50 ML PIGGYBACK IV (09:51)
[2021-11-09] MEDS: Phytonadione (Vit K1) Oral 10 MG/ML AMPUL PO (09:51)
--- NOTE | 2021-11-09 10:03 | MHC.CM.PN ---
PATIENT LIVES IN HIS OWN APARTMENT OF FAMILY HOME. HE IS WILLING TO DISCUSS ASSIGNING HCP WITH HIS PARENTS AND WILL LET THIS SOFTWARE INSTALLER KNOW. NO DME OR VNA AND NO PCP. HE ONCE VISITED [facility] BUT HAS NOT BEEN SINCE AROUND 2014 PATIENT HAS NO INSURANCE AND IS AGREEABLE TO FACE SHEET BEING FAXED TO [employer], NOW COMPLETED. HE HAS OUTPATIENT RECOVERY RESOURCES IN ROOM WHICH HE PLANS OT REVIEW WHEN HE GETS HOME.
--- NOTE | 2021-11-09 10:25 | P.PNIM_ITS ---
Subjective Subjective Date of Service: 11/09/21 Interval History: seen and evaluated this morning Reporting feels mild improvement since yesterday Bilirubin still increasing with improvement of transaminitis No significant symptoms of withdrawal Review of Systems No fever, chills or weakness No chest pain, palpitation improvement in shortness of breath, no coughing No abdominal pain, nausea or vomiting, having bowel movement which are becoming more loose No urinary symptoms No any rash or wounds jaundice Physical Exam Vital Signs: Vital Signs: Last Vital Signs Temp 98.0 F 11/09/21 07:56 Pulse 94 11/09/21 07:56 Resp 18 11/09/21 07:56 BP 118/65 11/09/21 07:56 Pulse Ox 94 11/09/21 07:56 BMI result Body Mass Index 45.7 Const: Other: Constitutional : Alert, interact, not in distress, morbidly obese Neck : Normal inspection, Supple Cardiovascular : RRR, elevated JVP, +1 bilateral lower extremity edema more on the left Respiratory : decreased basal bilateral air entry, nocrackles, wheezes or rhonchi Gastrointestinal: soft, lax, not tender, distended with mild to moderate amount of ascites Skin : Warm, Dry Neurological : Alert & oriented x3, No focal deficit , CN 2-12 within normal Objective Data Active Medications Acetaminophen (Acetaminophen 325 Mg Tablet) 650 mg PO Q6H PRN PRN Reason: Pain, Mild (Pain Scale 1-3) Ferrous Sulfate (Ferrous Sulfate 324 Mg Tablet.) 324 mg PO BIDWM [facility] Last Admin: 11/09/21 09:48 Dose: 324 mg Documented by: SHAKA Folic Acid (Folic Acid 1 Mg Tablet) 1 mg PO DAILY [facility] Last Admin: 11/09/21 09:48 Dose: 1 mg Documented by: SHAKA Lactulose (Lactulose 20 Gm/30 Ml Solution) 10 gm PO BID [facility] Last Admin: 11/09/21 09:49 Dose: 10 gm Documented by: SHAKA Nadolol (Nadolol 20 Mg Tablet) 20 mg PO DAILY [facility]; Protocol Last Admin: 11/09/21 09:50 Dose: 20 mg Documented by: SHAKA Omeprazole (Omeprazole 40 Mg Capsule.) 40 mg PO BID@0630,1630 [facility] Last Admin: 11/09/21 06:11 Dose: 40 mg Documented by: HO.MENM Ondansetron HCl (Ondansetron Hcl 4 Mg/2 Ml Vial) 4 mg IVPUSH Q8H PRN PRN Reason: Nausea and Vomiting Pharmacy Consult (Consult Rx Etoh Phenob Po Dose) 1 each MISCELLANE DAILY PRN PRN Reason: Consult order Pharmacy Consult (Consult Rx Perform Med Rec) 1 each MISCELLANE ONCE PRN PRN Reason: Consult order Phenobarbital (Phenobarbital 30 Mg Tablet) 30 mg PO BID [facility] Stop: 11/11/21 09:01 Phenobarbital (Phenobarbital 30 Mg Tablet) 30 mg PO DAILY [facility] Stop: 11/13/21 09:01 Prednisolone Sodium Phosphate (Prednisolone Sodium Phosphate 15 Mg/5 Ml Solution) 40 mg PO DAILY [facility] Last Admin: 11/08/21 09:16 Dose: Not Given Documented by: JUANIS Non-Admin Reason: Med Not Available Sodium Chloride (0.9 % Sodium Chloride Flush 3 Ml Syringe) 3 ml IVFLUSH QSHIFT [facility] Last Admin: 11/09/21 09:50 Dose: 3 ml Documented by: SHAKA Spironolactone (Spironolactone 25 Mg Tablet) 12.5 mg PO DAILY [facility]; Protocol Last Admin: 11/09/21 09:50 Dose: 12.5 mg Documented by: SHAKA Thiamine HCl (Thiamine Hcl 100 Mg Tablet) 100 mg PO DAILY [facility] Last Admin: 11/09/21 09:48 Dose: 100 mg Documented by: SHAKA Labs CBC & Chem 7: 11/09/21 06:04 11/09/21 06:04 Labs: Laboratory Results - last 24 hr 11/08/21 11/08/21 11/08/21 09:50 09:50 09:50 MCV MCH MCHC RDW Plt Count MPV Absolute Nucleated RBC Nucleated RBC % (auto) PT INR Anion Gap Estim Creat Clear Calc Estimated GFR Random Glucose Calcium Magnesium Total Bilirubin Direct Bilirubin AST ALT Alkaline Phosphatase B-Natriuretic Peptide Total Protein Albumin Peritoneal pH 7.61 Peritoneal WBC 0.129 Peritoneal RBC 0.003 Periton Neutrophils 22 Periton Lymphocytes 41 Peritoneal Monocytes 17 Peritoneal Other Cells 20 Peritoneal Tot Protein 1.4 Peritoneal LDH 83 Peritoneal Glucose 150 Stool Occult Blood 11/08/21 11/09/21 11/09/21 11:15 06:04 06:04 MCV 89.2 MCH 32.4 MCHC 36.4 H RDW 17.3 H Plt Count 98 L MPV 10.7 Absolute Nucleated RBC 0.000 Nucleated RBC % (auto) 0.0 PT INR Anion Gap 11 L Estim Creat Clear Calc 188.7 Estimated GFR > 60 Random Glucose 115 Calcium 8.2 L Magnesium Total Bilirubin Direct Bilirubin AST ALT Alkaline Phosphatase B-Natriuretic Peptide Total Protein Albumin Peritoneal pH Peritoneal WBC Peritoneal RBC Periton Neutrophils Periton Lymphocytes Peritoneal Monocytes Peritoneal Other Cells Peritoneal Tot Protein Peritoneal LDH Peritoneal Glucose Stool Occult Blood POSITIVE 11/09/21 11/09/21 11/09/21 06:04 06:04 06:04 MCV MCH MCHC RDW Plt Count MPV Absolute Nucleated RBC Nucleated RBC % (auto) PT 28.1 H INR 2.4 H Anion Gap Estim Creat Clear Calc Estimated GFR Random Glucose Calcium Magnesium 1.1 L* Total Bilirubin 28.2 H Direct Bilirubin 19.7 H AST 186 H ALT 74 H Alkaline Phosphatase 203 H B-Natriuretic Peptide 237 H Total Protein 5.7 L Albumin 2.5 L Peritoneal pH Peritoneal WBC Peritoneal RBC Periton Neutrophils Periton Lymphocytes Peritoneal Monocytes Peritoneal Other Cells Peritoneal Tot Protein Peritoneal LDH Peritoneal Glucose Stool Occult Blood Microbiology Microbiology Results: Microbiology 11/08/21 09:50 Gram Stain - Final Abdominal Fluid Anaerobic Culture - Preliminary No growth to date. Body Fluid Culture - Preliminary No growth after 1 day Assessment and Plan (1) Alcohol use disorder, severe, dependence: Status: Acute (2) Acute on chronic blood loss anemia: Status: Acute (3) Hyponatremia: Status: Acute (4) Ascites due to alcoholic cirrhosis: Status: Acute (5) Anemia: Status: Acute (6) Alcohol abuse: Status: Acute (7) Acute hepatic encephalopathy: Status: Acute (8) Acute alcoholic liver disease: Status: Acute Plan ?a 31 years old male with PMH of? alcohol abuse and morbid obesity presents to the hospital complaining of increasing edema,? jaundice and generalized weakness for the last 3 weeks.?? acute hepatic encephalopathy , resolved 2/2 Decompensated alcoholic liver cirrhosis , alcoholic hepatitis Evidence of cirrhosis on CT abdomen Maddery risk score of 101 today, expected poor outcome overall pending 2ndry causes AIH, hemochromatosis, Zinc GI input appreciated, to do EGD as outpatient , high-protein diet, DC when withdrawal resolve on tapering dose of steroids tapering dose prednisone over 4 weeks, started 11/07 PO omeprazole Continue folic acid and thiamine Continue Nadolol old 20 mg daily Continue spironolactone 12.5 mg daily Continue lactulose with goal of 2 bowel movements a day The patient might have a chance of liver transplant if needed as this is his 1st presentation for alcohol related problem and found to this cirrhosis. Plan to discharge home and to follow up with GI as outpatient at this point. Elevated INR INR 2.4 Give vitamin K 10 mg p.o. Follow INR on daily alcohol abuse No significant symptoms of withdrawal continue phenobarbital protocol mutlivitamins and CIWA scoring adduction team evaluation Ascites Received a dose of Lasix , hold further diuretics for now maintain on low sodium diet, water restriction paracentesis done removing 1 L of fluid Acceptable cell counts and SAAG, no SBP hyponatremia Secondary to dilution from cirrhosis Goal to keep it around 128 or above hypokalemia Improved Received replacement Follow BMP Iron deficiency anemia Likely secondary to cirrhosis positive occult blood , likely chronic close low iron profile , start iron supplement GI to hold on endoscopy until this acute event resolves. thrombocytopenia Secondary to alcoholism , stable Monitor, no active bleeding noticed Hypomagnesemia Mg of 1.1 to give replacement IV and p.o. and repeat mg level tomorrow Kidney cyst Incidental finding on CT scan Ultrasound showed 1.2 x 0.7 x 1 cm left renal cyst To be followed as outpatient DVT PPX DC heparin, SCDs Quality Stroke Does the patient have a stroke diagnosis?: No VTE Prior VTE?: No VTE Risk Level:: Medical - moderate - high VTE Device Contraindication: Treatment Not Indicated VTE Drug Contraindication: N/A - Med Ordered
--- NOTE | 2021-11-09 10:36 | P.CDIC_ITS ---
CDI Concurrent Query Documentation Clarification: PHYSICIAN'S DOCUMENTATION REQUEST Date of Query: 11/09/21 1037 Patient Name: Nery Phan Admit Date: 11/07/21 Dear Doctor, A review of the medical record indicates additional documentation may be needed. Please review below and update the documentation accordingly. Clinical Indicators: Risk Factors/Clinical Indicators/Treatments LAB FINDING: magnesium 1.1 L Magnesium sulfate replenished. Based on the above, could you clarify in the Progress Notes the appropriate diagnosis, if significant, that supports the above abnormalities and additional evaluation, monitoring, and/or treatment rendered: * Hypomagnesemia, treating, resolved etc. * Labs indicate a diagnosis of (please specify) * Other (please specify) * Unable to determine Use of terms such as suspected, likely, concern for, or probable (associated with a specific diagnosis that is being evaluated, monitored, or treated as if it exists) are acceptable and can be coded in the inpatient setting, when documented at the time of discharge. Thank you, Etelvina Leyva [facility], CDIS Extension: [phone] Please use your independent medical judgment in providing your response. THIS QUERY IS PART OF THE PERMANENT MEDICAL RECORD Provider Response: Other Other Diagnosis: in note
[2021-11-09] MEDS: prednisoLONE sodium phosphate 15 MG/5 ML SOLUTION 40 MG PO (10:57)
[2021-11-09] MEDS: Magnesium Oxide 400 MG TABLET PO ×2 (10:58→17:04)
[2021-11-09 13:11] LABS: Transglutaminase Ab IgG <1.0 U/mL
[2021-11-09] MEDS: PHENobarbitaL 30 MG TABLET PO (21:17)
[2021-11-10] VITALS: BP 137/73; PULSE 93; RESP 19; TEMP 36.8; O2SAT 96
[2021-11-10 03:42] VITALS: BP 117/72; PULSE 83; RESP 17; TEMP 36.6; O2SAT 95
[2021-11-10 03:58] LABS: ~Hepatitis A Antibody IgM Nonreactive (Nonreactive)
[2021-11-10] MEDS: Omeprazole 40 MG CAPSULE.DR PO ×2 (05:54→16:01)
[2021-11-10 06:39] LABS: Hematocrit 28.6 % (42.0-52.0); Hemoglobin 10.4 g/dl (14.0-18.0); Mean Corpuscular HGB Conc 36.4 g/dl (31.0-36.0); Mean Corpuscular Volume 90.8 fL (80.0-98.0); Mean Platelet Volume 10.6 fL (9.4-12.4); Platelet Count 105 X10*3/uL (160-400); Red Blood Count 3.15 X10*6/uL (4.60-5.80); Red Cell Distribution Width 17.6 % (11.0-16.0)
[2021-11-10 06:53] LABS: Magnesium 1.6 mg/dL (1.6-2.6)
[2021-11-10 07:01] LABS: Anion Gap 13 (12-20); Blood Urea Nitrogen 23 mg/dL (9-16); Calcium 8.3 mg/dL (8.4-10.2); Carbon Dioxide 28 mmol/L (22-29); Chloride 94 mmol/L (96-108); Creatinine Clr Calc Pharmacy 153.8; Estimated Glomerular Filt Rate > 60; Glucose Random 104 mg/dL (60-115); Potassium 3.6 mmol/L (3.3-5.1); Sodium 131 mmol/L (135-145)
[2021-11-10 07:03] LABS: INTERNATIONAL NORM RATIO 2.1 (0.9-1.1); Prothrombin Time 23.8 SEC (9.9-13.0)
[2021-11-10 07:46] VITALS: BP 118/70; PULSE 92; RESP 20; TEMP 35.8; O2SAT 100
[2021-11-10 07:59] VITALS: BP 118/70; PULSE 93; RESP 20; TEMP 36.1; O2SAT 100
[2021-11-10] MEDS: 0.9 % Sodium Chloride Flush 3 ML SYRINGE IVFLUSH ×2 (09:15→16:02)
[2021-11-10] MEDS: Spironolactone 25 MG TABLET 12.5 MG PO (09:15)
[2021-11-10] MEDS: Ferrous Sulfate 324 MG TABLET.DR PO ×2 (09:16→16:01)
[2021-11-10] MEDS: Folic Acid 1 MG TABLET PO (09:16)
[2021-11-10] MEDS: nadoloL 20 MG TABLET PO (09:16)
[2021-11-10] MEDS: Magnesium Oxide 400 MG TABLET PO ×2 (09:16→16:01)
[2021-11-10] MEDS: PHENobarbitaL 30 MG TABLET PO (09:16)
[2021-11-10] MEDS: Lactulose 20 GM/30 ML SOLUTION 10 GM PO (09:16)
[2021-11-10] MEDS: Thiamine HCL 100 MG TABLET PO (09:16)
[2021-11-10 09:17] LABS: Ceruloplasmin 36 mg/dL (18-36)
[2021-11-10] MEDS: prednisoLONE sodium phosphate 15 MG/5 ML SOLUTION 40 MG PO (09:17)
[2021-11-10 10:57] VITALS: BP 124/64; PULSE 90; RESP 20; TEMP 35.9; O2SAT 98
--- NOTE | 2021-11-10 11:15 | PM.DS ---
DS: Providers Provider Date of Service: 11/10/21 Date of admission: 11/07/21 13:56 Primary care physician: None Physician Consults: 11/07/21 14:03 Consult to Gastroenterology Routine Consulting Provider: Nancy Nielson Reason for consultation: Alcoholic hepatitis, ascites 11/07/21 15:08 Addiction Medicine Routine Consulting Provider: Brittney Ghosh Reason for consultation: alcohol abuse, liver cirrhosis DS: Diagnosis Discharge Diagnosis (1) Alcohol use disorder, severe, dependence: Status: Acute (2) Acute on chronic blood loss anemia: Status: Acute (3) Hyponatremia: Status: Acute (4) Ascites due to alcoholic cirrhosis: Status: Acute (5) Anemia: Status: Acute (6) Alcohol abuse: Status: Acute (7) Acute hepatic encephalopathy: Status: Acute (8) Acute alcoholic liver disease: Status: Acute DS: Summary Hospital Course Hospital Course: from [facility]: Chief Complaint:? edema, confusion, weakness ?a 31 years old male with PMH of? alcohol abuse and morbid obesity presents to the hospital complaining of increasing edema,? jaundice and generalized weakness for the last 3 weeks.? The patient reports that he has been complaining of worsening weakness, edema and associated blurred vision and tremors for almost 3 weeks as he has been trying to cut down his alcohol intake.? He reports drinking significantly over the past years with more than once try to quit drinking which she could not do by himself but he cut down his alcohol intake to 1 pending of vodka daily.? Reports that he started feeling different over 3 weeks with increased weight and weakness associated with edema in his lower extremities and abdominal distension.? He denies any fever, chills, chest pain, palpitation, shortness of breath, change in bowel habit or urinary symptoms.? He noticed his eyes turning jaundiced during the last few weeks as well.? In the emergency blood work was consistent with elevated bilirubin to 23, transaminitis, hyponatremia and hyperkalemia.? CT scan of the abdomen was consistent with cirrhosis of the liver. ? Will be admitted for further evaluation and treatment. hospital course: Patient was admitted for alcohol dependence complicated by acute alcoholic hepatitis and decompensated (encephalopathy, ascites) liver cirrhosis, further complicated by acute metabolic encephalopathy due to hepatic encephalopathy, hyponatremia, hypomagnesemia and hypokalemia, thrombocytopenia, iron deficiency anemia, and alcohol withdrawal. Patient was treated with steroids, PPI, lactulose, Aldactone, now the wall, vitamin replacement, high-protein diet. He was also given phenobarbital protocol. He had successful bowel movements and mental status improved. He underwent paracentesis that did not show evidence of SBP, he was given vitamin K 10 mg for elevated INR, he was put on fluid restriction for hyponatremia and sodium was 131 at discharge. He was given replacement for potassium and magnesium. He was started on iron for iron deficiency, EGD planned as outpatient. INR is decreasing, patient is alert and tolerating diet. Patient will be discharged home to continue prednisone taper over 4 weeks, he will follow up with GI for further management, he is educated on alcohol cessation. He will continue low-salt diet, fluid restrict, follow-up labs next week. Time Spent with Patient Time attestation: Total time spent providing and/or coordinating discharge services: Discharge coordination time: Greater than 30 minutes Quality: Safe Use of Opioids Does Pt have an Active Cancer Diagnosis on the Problem List?: No Quality: Stroke Does the patient have a stroke diagnosis?: No Physical Exam Vital Signs: Vital Signs: Last Vital Signs Temp 96.7 F L 11/10/21 10:57 Pulse 90 11/10/21 10:57 Resp 20 11/10/21 10:57 BP 124/64 11/10/21 10:57 Pulse Ox 98 11/10/21 10:57 BMI result Body Mass Index 45.7 General: AO X 3, no acute distress, juandiced Resp: CTA bilateral, no accessory muscles used CVS: S1,S2,RRR GI: soft, non tender, midlly distended Neuro: motor grossly intact, alert Psych: appropriate affect, appropriate insight ext: 3+ bilateral edema DS: Data Data Completed and Pending Labs on day of discharge: Laboratory Results - last 24 hr 11/07/21 11/07/21 11/07/21 15:51 15:51 15:51 WBC RBC Hgb Hct MCV MCH MCHC RDW Plt Count MPV Absolute Nucleated RBC Nucleated RBC % (auto) PT INR Sodium Potassium Chloride Carbon Dioxide Anion Gap BUN Creatinine Estim Creat Clear Calc Estimated GFR Random Glucose Calcium Magnesium Ceruloplasmin 36 Tiss Transglutamin IgG <1.0 Hepatitis A IgM Ab Nonreactive 04/27/22 04/27/22 04/27/22 06:06 06:06 06:06 WBC 10.0 RBC 3.15 L Hgb 10.4 L Hct 28.6 L MCV 90.8 MCH 33.0 MCHC 36.4 H RDW 17.6 H Plt Count 105 L MPV 10.6 Absolute Nucleated RBC 0.000 Nucleated RBC % (auto) 0.0 PT 23.8 H INR 2.1 H Sodium Potassium Chloride Carbon Dioxide Anion Gap BUN Creatinine Estim Creat Clear Calc Estimated GFR Random Glucose Calcium Magnesium 1.6 Ceruloplasmin Tiss Transglutamin IgG Hepatitis A IgM Ab 11/10/21 06:06 WBC RBC Hgb Hct MCV MCH MCHC RDW Plt Count MPV Absolute Nucleated RBC Nucleated RBC % (auto) PT INR Sodium 131 L Potassium 3.6 Chloride 94 L Carbon Dioxide 28 Anion Gap 13 BUN 23 H D Creatinine 1.08 Estim Creat Clear Calc 153.8 Estimated GFR > 60 Random Glucose 104 Calcium 8.3 L Magnesium Ceruloplasmin Tiss Transglutamin IgG Hepatitis A IgM Ab Preliminary micro results at discharge 11/08/21 09:50 Anaerobic Culture - Preliminary Abdominal Fluid No growth to date. Discharge Plan Discharge Patient Disposition: Home, Self-Care Discharge Diagnosis: etoh hepatits, cirrhosis Referrals: Nancy Nielson MD [Physician] - 1 Week Physician,None [Primary Care Provider] - 1 Week Discharge Medications: New omeprazole 40 mg Capsule,Delayed Release(Dr/Ec) 40 mg PO DAILY Qty: 30 0RF spironolactone 25 mg Tablet 50 mg PO DAILY Qty: 30 0RF Protocol: Hold for SBP< HOLD for SBP < : 90 nadolol 20 mg Tablet 20 mg PO DAILY Qty: 30 0RF Protocol: Hold for SBP/HR < HOLD for SBP < : 90 HOLD for HR < : 60 ferrous sulfate 324 mg (65 mg iron) Tablet,Delayed Release (Dr/Ec) 324 mg PO DAILY Qty: 30 0RF lactulose 20 gram/30 mL Solution 10 g PO BID Qty: 60 0RF prednisone 10 mg tablet 40 mg PO DAILY Qty: 70 0RF Rx Instructions: start at 40mg daily, decrease by 10mg/day every 7 days. (4 weeks total) Discharge Orders: Discharge Order (Routine); Ordered 11/10/21 Ordered By: Nilson Bowie Diet: low salt diet Activity on Discharge: As tolerated Stand Alone Forms: Patient Portal Discharge page Other Ambulatory Orders: Comprehensive Met. Panel (Routine) Timeframe: 1 Week Facility: [facility] - Location: Laboratory Ordered By: Nilson Bowie Prothrombin Time INR (Routine) Timeframe: 1 Week Facility: [facility] - Location: Laboratory Ordered By: Nilson Bowie Care Plan Goals: recovery Health Concerns: ETOH liver disease Plan of Treatment: no alcohol, follow up with GI, high protein diet, low salt, fluid restrict, new medications as prescribed, can use wraps or compression for legs. repeat labs in next week Assessment: see above
--- NOTE | 2021-11-10 11:17 | MHC.CM.PN ---
PLAN IS [place] HOME TODAY - SELF CARE MOTHER TO PROVIDE TRANSPORT HOME. PATIENT ENCOURAGED TO UTILIZE RECOVERY RESOURCES FOR CONTINUED HEALTH.
[2021-11-10 14:26] LABS: Anti Nuclear Antibody Screen NEGATIVE (NEGATIVE)
[2021-11-10 14:26] LABS: Alpha 1 Anti-trypsin >300 mg/dL (83-199)
[2021-11-10 15:46] VITALS: BP 130/68; PULSE 99; RESP 19; TEMP 36.6; O2SAT 97
[2021-11-11 01:56] LABS: Zinc 32 mcg/dL (60-130)
[2021-11-12 00:42] LABS: Soluble Liver Ag Autoantibody <20.1 U (0.0-20.0)
[2021-11-12 06:27] LABS: Smooth Muscle Antibody <20 U (<20)
== END 2021-11-10 18:02 | disposition home or self-care (01) | DRG 432 ==
LOC: HO.ED 08:29 → HO.EDOVER 14:05 → HO.S3 14:58
PROVIDERS: Internal Medicine Gastroenterology; Radiology Diagnostic Radiology; Admitting Provider Student in an Organized Health Care Education/Training Program; Emergency Provider Emergency Medicine; Visit Provider Internal Medicine
PROC: 0W9G3ZZ Drainage of Peritoneal Cavity, Percutaneous Approach (ICD-10-PCS; principal; 2021-11-08 09:00)
DX: K70.31 Alcoholic cirrhosis of liver with ascites (principal); K72.00 Acute and subacute hepatic failure without coma; G93.41 Metabolic encephalopathy; K76.6 Portal hypertension; Z68.42 Body mass index [BMI] 45.0-49.9, adult; E87.1 Hypo-osmolality and hyponatremia; D62 Acute posthemorrhagic anemia; F10.239 Alcohol dependence with withdrawal, unspecified; K70.10 Alcoholic hepatitis without ascites; D63.8 Anemia in other chronic diseases classified elsewhere; E66.01 Morbid (severe) obesity due to excess calories; D69.59 Other secondary thrombocytopenia; E87.6 Hypokalemia; N28.1 Cyst of kidney, acquired; K70.11 Alcoholic hepatitis with ascites; D50.9 Iron deficiency anemia, unspecified; R79.1 Abnormal coagulation profile; E83.42 Hypomagnesemia; E87.5 Hyperkalemia; F17.210 Nicotine dependence, cigarettes, uncomplicated; Z71.6 Tobacco abuse counseling; Z20.822 Contact with and (suspected) exposure to COVID-19; Z79.52 Long term (current) use of systemic steroids; Z79.899 Other long term (current) drug therapy
CPT/HCPCS: 36415; 49083; 71045; 74176; 76775; 80048; 80053; 80076; 82103; 82140; 82272; 82390; 82607; 82746; 82945; 83520; 83540; 83615; 83735; 83880; 83986; 84157; 84484; 84630; 85025; 85027; 85610; 85730; 86015; 86038; 86039; 86364; 86704; 86706; 86709; 86803; 87070; 87073; 87205; 87340; 87389; 87635; 89051; 93005; 96374; 99285; 99291; J1940; J2405; J3475

== ENCOUNTER 2021-11-17 11:25 | Outpatient (REF) | payer MEDICAID, SELFPAY ==
[2021-11-17 11:48] LABS: MANUAL DIFF FLAG NO
[2021-11-17 12:32] LABS: Basophils Percent Auto 0.2 % (0-2); Eosinophils Absolute Auto 0.1 X10*3/uL (0.0-0.4); Eosinophils Percent Auto 0.7 % (0-4); Hematocrit 31.5 % (42.0-52.0); Hemoglobin 10.5 g/dl (14.0-18.0); Imm Gran Abs Auto 0.14 X10*3/uL (0.00-0.03); Imm Gran Pct Auto 1.2 % (0.0-0.4); Lymphocytes Absolute Auto 0.5 X10*3/uL (1.2-4.9); Mean Corpuscular HGB Conc 33.3 g/dl (31.0-36.0); Mean Corpuscular Hemoglobin 32.3 pg (27.0-33.0); Mean Corpuscular Volume 96.9 fL (80.0-98.0); Mean Platelet Volume 11.9 fL (9.4-12.4); Monocytes Absolute Auto 0.7 X10*3/uL (0.1-1.2); Monocytes Percent Auto 6.1 % (2-11); Neutrophils Absolute Auto 10.6 x10*3/uL (2.0-8.3); Neutrophils Percent Auto 87.8 % (45-73); Platelet Count 198 X10*3/uL (160-400); Red Blood Count 3.25 X10*6/uL (4.60-5.80); Red Cell Distribution Width 18.7 % (11.0-16.0); White Blood Count 12.1 X10*3/uL (4.8-10.8)
[2021-11-17 12:42] LABS: INTERNATIONAL NORM RATIO 1.6 (0.9-1.1); Prothrombin Time 18.6 SEC (9.9-13.0)
[2021-11-17 13:10] LABS: Alanine Aminotransferase 78 U/L (0-40); Albumin Level 2.7 g/dL (3.5-5.0); Alkaline Phosphatase 163 U/L (39-117); Anion Gap 15 (12-20); Aspartate Amino Transferase 137 U/L (5-37); Blood Urea Nitrogen 39 mg/dL (9-16); Calcium 8.8 mg/dL (8.4-10.2); Carbon Dioxide 24 mmol/L (22-29); Chloride 97 mmol/L (96-108); Estimated Glomerular Filt Rate > 60; Glucose Random 118 mg/dL (60-115); Potassium 4.1 mmol/L (3.3-5.1); Sodium 132 mmol/L (135-145); Total Protein 5.9 g/dL (6.5-8.0)
[2021-11-17 13:19] LABS: Bilirubin Total 23.2 mg/dL (0.0-1.0)
[2021-11-17 13:23] LABS: Vitamin D 25-OH Total 6.6 ng/mL (>30)
[2021-11-17 13:27] LABS: Folate 4.2 ng/mL (> or = 4.0); Vitamin B12 732 pg/mL (200-900)
[2021-11-22 13:52] LABS: Vitamin A 7 mcg/dL (38-98)
[2021-11-22 15:27] LABS: Zinc 31 mcg/dL (60-130)
== END 2021-11-17 11:26 | disposition home or self-care (01) ==
LOC: HO.LAB 11:25
PROVIDERS: Internal Medicine Gastroenterology; Visit Provider Internal Medicine
DX: D62 Acute posthemorrhagic anemia (principal); K70.31 Alcoholic cirrhosis of liver with ascites; K75.81 Nonalcoholic steatohepatitis (NASH)
CPT/HCPCS: 36415; 80053; 82306; 82607; 82746; 84590; 84630; 85025; 85610

== ENCOUNTER 2021-11-29 11:16 | Outpatient (REF) | payer MEDICAID, SELFPAY ==
[2021-11-29 11:30] LABS: MANUAL DIFF FLAG NO
[2021-11-29 11:46] LABS: Basophils Percent Auto 0.3 % (0-2); Eosinophils Absolute Auto 0.2 X10*3/uL (0.0-0.4); Eosinophils Percent Auto 1.6 % (0-4); Hematocrit 29.7 % (42.0-52.0); Hemoglobin 10.1 g/dl (14.0-18.0); Imm Gran Abs Auto 0.09 X10*3/uL (0.00-0.03); Imm Gran Pct Auto 0.6 % (0.0-0.4); Lymphocytes Absolute Auto 0.6 X10*3/uL (1.2-4.9); Lymphocytes Percent Auto 4.1 % (20-40); Mean Corpuscular Hemoglobin 32.8 pg (27.0-33.0); Mean Corpuscular Volume 96.4 fL (80.0-98.0); Mean Platelet Volume 11.6 fL (9.4-12.4); Monocytes Absolute Auto 0.9 X10*3/uL (0.1-1.2); Monocytes Percent Auto 6.3 % (2-11); Neutrophils Absolute Auto 12.2 x10*3/uL (2.0-8.3); Neutrophils Percent Auto 87.1 % (45-73); Platelet Count 145 X10*3/uL (160-400); Red Blood Count 3.08 X10*6/uL (4.60-5.80); Red Cell Distribution Width 17.2 % (11.0-16.0)
[2021-11-29 11:51] LABS: INTERNATIONAL NORM RATIO 1.8 (0.9-1.1); Prothrombin Time 20.5 SEC (9.9-13.0)
[2021-11-29 12:17] LABS: Alanine Aminotransferase 90 U/L (0-40); Albumin Level 2.6 g/dL (3.5-5.0); Alkaline Phosphatase 160 U/L (39-117); Anion Gap 11 (12-20); Aspartate Amino Transferase 130 U/L (5-37); Bilirubin Total 15.6 mg/dL (0.0-1.0); Blood Urea Nitrogen 20 mg/dL (9-16); Calcium 8.9 mg/dL (8.4-10.2); Carbon Dioxide 21 mmol/L (22-29); Chloride 106 mmol/L (96-108); Estimated Glomerular Filt Rate > 60; Glucose Random 141 mg/dL (60-115); Potassium 5.1 mmol/L (3.3-5.1); Sodium 133 mmol/L (135-145); Total Protein 5.9 g/dL (6.5-8.0)
== END 2021-11-29 11:17 | disposition home or self-care (01) ==
LOC: HO.LAB 11:16
PROVIDERS: Visit Provider Internal Medicine Gastroenterology
DX: K75.81 Nonalcoholic steatohepatitis (NASH) (principal); F10.20 Alcohol dependence, uncomplicated
CPT/HCPCS: 36415; 80053; 85025; 85610

== ENCOUNTER 2021-12-03 10:24 | Outpatient (REF) | payer OTHER, SELFPAY | END 2021-12-03 10:25 | disposition home or self-care (01) | LOC: HO.US 10:24 | PROVIDERS: Visit Provider Internal Medicine Gastroenterology | DX: K70.31 Alcoholic cirrhosis of liver with ascites (principal); F10.10 Alcohol abuse, uncomplicated; M79.89 Other specified soft tissue disorders | CPT/HCPCS: 71046; 93970; 99212 ==

== ENCOUNTER 2021-12-03 11:18 | Outpatient (REF) | payer MEDICAID, SELFPAY ==
--- NOTE | ~2021-12-03 | US_ITS ---
EXAMINATION: US VENOUS ULTRASOUND WITH DOPPLER LOWER EXTREMITY, BILATERAL CLINICAL INFORMATION: Leg swelling COMPARISON: None TECHNIQUE: Ultrasound of the deep veins is performed from the hip to the calf with compression sonography and color and pulse Doppler assessment. Spectral analysis with color-flow imaging is performed. FINDINGS: RIGHT: There is normal venous compression and respiratory variation and augmented flow. The visualized common femoral vein, superficial femoral vein, profunda femoral vein, popliteal vein shows no evidence of deep venous thrombosis. Veins are not well visualized. There is no significant popliteal fossa cyst. LEFT: There is normal venous compression and respiratory variation and augmented flow. The visualized common femoral vein, superficial femoral vein, profunda femoral vein, and popliteal vein shows no evidence of deep venous thrombosis. Calf veins are not well visualized. There is no significant popliteal fossa cyst. US/US venous duplex LE BI IMPRESSION: No DVT demonstrated in the bilateral lower extremity. Calf veins are not well visualized. No Conde's cyst.
--- NOTE | ~2021-12-03 | XR_ITS ---
EXAMINATION: XR chest 2V CLINICAL INFORMATION: Reason for Exam K70.31 - Alcoholic cirrhosis of liver with ascites COMPARISON: Chest radiograph 11/07/2021 TECHNIQUE: 2 views of the chest XR/XR chest 2V FINDINGS/IMPRESSION: * Low lung volumes with streaky right midlung airspace opacity favored to reflect atelectasis in the setting of the lung volumes. * No pneumothorax or pleural effusion. * Normal cardiomediastinal silhouette.
== END 2021-12-03 11:19 | disposition home or self-care (01) ==
LOC: HO.XRAY 11:18
PROVIDERS: Visit Provider Internal Medicine Gastroenterology
DX: R60.0 Localized edema (principal); M79.89 Other specified soft tissue disorders; F10.10 Alcohol abuse, uncomplicated; K70.31 Alcoholic cirrhosis of liver with ascites
CPT/HCPCS: 71046; 93970

== ENCOUNTER 2021-12-09 11:02 | Outpatient (REF) | payer OTHER, SELFPAY ==
[2021-12-09 11:28] LABS: MANUAL DIFF FLAG NO
[2021-12-09 11:56] LABS: Basophils Absolute Auto 0.1 X10*3/uL (0.0-0.2); Basophils Percent Auto 0.5 % (0-2); Eosinophils Absolute Auto 0.3 X10*3/uL (0.0-0.4); Eosinophils Percent Auto 3.2 % (0-4); Hematocrit 29.1 % (42.0-52.0); Hemoglobin 9.7 g/dl (14.0-18.0); Imm Gran Abs Auto 0.11 X10*3/uL (0.00-0.03); Imm Gran Pct Auto 1.1 % (0.0-0.4); Lymphocytes Absolute Auto 0.7 X10*3/uL (1.2-4.9); Mean Corpuscular HGB Conc 33.3 g/dl (31.0-36.0); Mean Platelet Volume 11.6 fL (9.4-12.4); Monocytes Absolute Auto 0.5 X10*3/uL (0.1-1.2); Monocytes Percent Auto 5.2 % (2-11); Platelet Count 191 X10*3/uL (160-400); Red Blood Count 2.94 X10*6/uL (4.60-5.80); Red Cell Distribution Width 16.6 % (11.0-16.0); White Blood Count 9.7 X10*3/uL (4.8-10.8)
[2021-12-09 12:00] LABS: INTERNATIONAL NORM RATIO 1.9 (0.9-1.1); Prothrombin Time 21.6 SEC (9.9-13.0)
[2021-12-09 12:13] LABS: Alanine Aminotransferase 51 U/L (0-40); Albumin Level 2.4 g/dL (3.5-5.0); Alkaline Phosphatase 150 U/L (39-117); Anion Gap 14 (12-20); Aspartate Amino Transferase 86 U/L (5-37); Bilirubin Total 12.1 mg/dL (0.0-1.0); Blood Urea Nitrogen 13 mg/dL (9-16); Calcium 8.5 mg/dL (8.4-10.2); Carbon Dioxide 21 mmol/L (22-29); Chloride 104 mmol/L (96-108); Estimated Glomerular Filt Rate > 60; Glucose Random 113 mg/dL (60-115); Potassium 4.7 mmol/L (3.3-5.1); Sodium 134 mmol/L (135-145); Total Protein 5.8 g/dL (6.5-8.0)
== END 2021-12-09 11:03 | disposition home or self-care (01) ==
LOC: HO.LAB 11:02
PROVIDERS: PCP Internal Medicine Medical Oncology; Visit Provider Internal Medicine Gastroenterology
DX: D62 Acute posthemorrhagic anemia (principal); F10.20 Alcohol dependence, uncomplicated; K75.81 Nonalcoholic steatohepatitis (NASH)
CPT/HCPCS: 36415; 80053; 85025; 85610

== ENCOUNTER → 2021-12-31 08:50 | Outpatient (BNVA) | payer OTHER, SELFPAY | PROVIDERS: PCP Internal Medicine Medical Oncology; Visit Provider Internal Medicine Gastroenterology | DX: K70.31 Alcoholic cirrhosis of liver with ascites (principal); F10.10 Alcohol abuse, uncomplicated; K75.81 Nonalcoholic steatohepatitis (NASH) | CPT/HCPCS: 36415; 80053; 82607; 82728; 82746; 84590; 84630; 85025; 85610; 99212 ==

== ENCOUNTER 2021-12-31 09:20 | Outpatient (REF) | payer OTHER, SELFPAY ==
[2021-12-31 09:44] LABS: MANUAL DIFF FLAG NO
[2021-12-31 10:28] LABS: Basophils Absolute Auto 0.1 X10*3/uL (0.0-0.2); Basophils Percent Auto 0.8 % (0-2); Eosinophils Absolute Auto 0.1 X10*3/uL (0.0-0.4); Eosinophils Percent Auto 1.8 % (0-4); Hematocrit 35.1 % (42.0-52.0); Hemoglobin 11.5 g/dl (14.0-18.0); Imm Gran Abs Auto 0.05 X10*3/uL (0.00-0.03); Imm Gran Pct Auto 0.7 % (0.0-0.4); Lymphocytes Percent Auto 12.8 % (20-40); Mean Corpuscular HGB Conc 32.8 g/dl (31.0-36.0); Mean Corpuscular Hemoglobin 31.9 pg (27.0-33.0); Mean Corpuscular Volume 97.2 fL (80.0-98.0); Mean Platelet Volume 10.5 fL (9.4-12.4); Monocytes Absolute Auto 0.6 X10*3/uL (0.1-1.2); Monocytes Percent Auto 7.4 % (2-11); Neutrophils Absolute Auto 5.9 x10*3/uL (2.0-8.3); Neutrophils Percent Auto 76.5 % (45-73); Platelet Count 270 X10*3/uL (160-400); Red Blood Count 3.61 X10*6/uL (4.60-5.80); Red Cell Distribution Width 14.4 % (11.0-16.0); White Blood Count 7.7 X10*3/uL (4.8-10.8)
[2021-12-31 10:38] LABS: INTERNATIONAL NORM RATIO 1.5 (0.9-1.1); Prothrombin Time 17.2 SEC (9.9-13.0)
[2021-12-31 11:00] LABS: Alanine Aminotransferase 24 U/L (0-40); Albumin Level 3.1 g/dL (3.5-5.0); Alkaline Phosphatase 123 U/L (39-117); Anion Gap 13 (12-20); Aspartate Amino Transferase 65 U/L (5-37); Bilirubin Total 8.5 mg/dL (0.0-1.0); Blood Urea Nitrogen 9 mg/dL (9-16); Calcium 9.3 mg/dL (8.4-10.2); Carbon Dioxide 23 mmol/L (22-29); Chloride 104 mmol/L (96-108); Estimated Glomerular Filt Rate > 60; Glucose Random 121 mg/dL (60-115); Potassium 4.7 mmol/L (3.3-5.1); Sodium 135 mmol/L (135-145); Total Protein 7.1 g/dL (6.5-8.0)
[2021-12-31 11:25] LABS: Ferritin 312 ng/mL (20-250)
[2021-12-31 11:29] LABS: Folate 11.9 ng/mL (> or = 4.0); Vitamin B12 821 pg/mL (200-900)
[2022-01-05 02:52] LABS: Zinc 37 mcg/dL (60-130)
[2022-01-05 14:31] LABS: Vitamin A 10 mcg/dL (38-98)
== END 2021-12-31 09:21 | disposition home or self-care (01) ==
LOC: HO.LAB 09:20
PROVIDERS: Visit Provider Internal Medicine Gastroenterology
DX: Z13.89 Encounter for screening for other disorder (principal)
CPT/HCPCS: 36415; 80053; 82607; 82728; 82746; 84590; 84630; 85025; 85610

== ENCOUNTER 2022-02-11 08:43 | Outpatient (REF) | payer OTHER, SELFPAY ==
[2022-02-11 09:38] LABS: MANUAL DIFF FLAG NO
[2022-02-11 10:59] LABS: Basophils Percent Auto 0.5 % (0-2); Eosinophils Absolute Auto 0.2 X10*3/uL (0.0-0.4); Eosinophils Percent Auto 3.2 % (0-4); Hematocrit 37.6 % (42.0-52.0); Hemoglobin 12.5 g/dl (14.0-18.0); Imm Gran Abs Auto 0.02 X10*3/uL (0.00-0.03); Imm Gran Pct Auto 0.3 % (0.0-0.4); Lymphocytes Absolute Auto 1.7 X10*3/uL (1.2-4.9); Lymphocytes Percent Auto 25.2 % (20-40); Mean Corpuscular HGB Conc 33.2 g/dl (31.0-36.0); Mean Corpuscular Hemoglobin 29.8 pg (27.0-33.0); Mean Corpuscular Volume 89.7 fL (80.0-98.0); Mean Platelet Volume 10.8 fL (9.4-12.4); Monocytes Absolute Auto 0.4 X10*3/uL (0.1-1.2); Monocytes Percent Auto 5.9 % (2-11); Neutrophils Absolute Auto 4.3 x10*3/uL (2.0-8.3); Neutrophils Percent Auto 64.9 % (45-73); Platelet Count 168 X10*3/uL (160-400); Red Blood Count 4.19 X10*6/uL (4.60-5.80); Red Cell Distribution Width 13.2 % (11.0-16.0); White Blood Count 6.6 X10*3/uL (4.8-10.8)
[2022-02-11 11:00] LABS: INTERNATIONAL NORM RATIO 1.4 (0.9-1.1); Prothrombin Time 16.6 SEC (10.0-13.1)
[2022-02-11 11:21] LABS: Alanine Aminotransferase 15 U/L (0-40); Albumin Level 3.8 g/dL (3.5-5.0); Alkaline Phosphatase 76 U/L (39-117); Anion Gap 15 (12-20); Aspartate Amino Transferase 30 U/L (5-37); Bilirubin Total 3.2 mg/dL (0.0-1.0); Blood Urea Nitrogen 12 mg/dL (9-16); Carbon Dioxide 24 mmol/L (22-29); Chloride 104 mmol/L (96-108); Estimated Glomerular Filt Rate > 60; Glucose Random 112 mg/dL (60-115); Potassium 4.4 mmol/L (3.3-5.1); Sodium 139 mmol/L (135-145); Total Protein 7.2 g/dL (6.5-8.0)
[2022-02-11 11:44] LABS: Ferritin 144 ng/mL (20-250)
[2022-02-11 12:16] LABS: Folate 11.5 ng/mL (> or = 4.0); Vitamin B12 581 pg/mL (200-900)
[2022-02-16 02:02] LABS: Vitamin A 12 mcg/dL (38-98)
[2022-02-16 05:56] LABS: Zinc 54 mcg/dL (60-130)
== END 2022-02-11 08:44 | disposition home or self-care (01) ==
LOC: HO.LAB 08:43
PROVIDERS: PCP Internal Medicine; Visit Provider Internal Medicine Gastroenterology
DX: D64.9 Anemia, unspecified (principal); K70.31 Alcoholic cirrhosis of liver with ascites; K75.81 Nonalcoholic steatohepatitis (NASH)
CPT/HCPCS: 36415; 80053; 82607; 82728; 82746; 84590; 84630; 85025; 85610; 99212

== ENCOUNTER 2022-05-09 11:29 | Outpatient (REF) | payer OTHER, SELFPAY ==
[2022-05-09 11:53] LABS: MANUAL DIFF FLAG NO
[2022-05-09 12:22] LABS: Basophils Percent Auto 0.3 % (0-2); Eosinophils Absolute Auto 0.2 X10*3/uL (0.0-0.4); Eosinophils Percent Auto 2.9 % (0-4); Hematocrit 36.9 % (42.0-52.0); Hemoglobin 12.6 g/dl (14.0-18.0); Imm Gran Abs Auto 0.03 X10*3/uL (0.00-0.03); Imm Gran Pct Auto 0.5 % (0.0-0.4); Lymphocytes Absolute Auto 1.6 X10*3/uL (1.2-4.9); Lymphocytes Percent Auto 27.2 % (20-40); Mean Corpuscular HGB Conc 34.1 g/dl (31.0-36.0); Mean Corpuscular Hemoglobin 31.3 pg (27.0-33.0); Mean Corpuscular Volume 91.8 fL (80.0-98.0); Mean Platelet Volume 9.8 fL (9.4-12.4); Monocytes Absolute Auto 0.5 X10*3/uL (0.1-1.2); Monocytes Percent Auto 7.9 % (2-11); Neutrophils Absolute Auto 3.6 x10*3/uL (2.0-8.3); Neutrophils Percent Auto 61.2 % (45-73); Platelet Count 160 X10*3/uL (160-400); Red Blood Count 4.02 X10*6/uL (4.60-5.80); Red Cell Distribution Width 14.1 % (11.0-16.0); White Blood Count 5.9 X10*3/uL (4.8-10.8)
[2022-05-09 12:27] LABS: INTERNATIONAL NORM RATIO 1.3 (0.9-1.1); Prothrombin Time 14.5 SEC (10.0-13.1)
[2022-05-09 12:50] LABS: Alanine Aminotransferase 32 U/L (0-40); Albumin Level 4.1 g/dL (3.5-5.0); Alkaline Phosphatase 110 U/L (39-117); Anion Gap 15 (12-20); Aspartate Amino Transferase 41 U/L (5-37); Bilirubin Total 2.1 mg/dL (0.0-1.0); Blood Urea Nitrogen 20 mg/dL (9-16); Calcium 9.8 mg/dL (8.4-10.2); Carbon Dioxide 25 mmol/L (22-29); Chloride 105 mmol/L (96-108); Estimated Glomerular Filt Rate > 60; Glucose Random 93 mg/dL (60-115); Potassium 5.5 mmol/L (3.3-5.1); Sodium 139 mmol/L (135-145)
[2022-05-12 19:52] LABS: Vitamin A 25 mcg/dL (38-98)
== END 2022-05-09 11:30 | disposition home or self-care (01) ==
LOC: HO.LAB 11:29
PROVIDERS: PCP Internal Medicine; Visit Provider Internal Medicine Gastroenterology
DX: K70.31 Alcoholic cirrhosis of liver with ascites (principal); K75.81 Nonalcoholic steatohepatitis (NASH)
CPT/HCPCS: 36415; 80053; 84590; 85025; 85610

== ENCOUNTER 2022-05-16 09:26 | Outpatient (REF) | payer OTHER, SELFPAY ==
[2022-05-16 11:56] LABS: Alanine Aminotransferase 30 U/L (0-40); Albumin Level 4.1 g/dL (3.5-5.0); Alkaline Phosphatase 111 U/L (39-117); Anion Gap 13 (12-20); Aspartate Amino Transferase 40 U/L (5-37); Bilirubin Total 2.8 mg/dL (0.0-1.0); Blood Urea Nitrogen 20 mg/dL (9-16); Calcium 9.6 mg/dL (8.4-10.2); Carbon Dioxide 26 mmol/L (22-29); Chloride 104 mmol/L (96-108); Estimated Glomerular Filt Rate > 60; Glucose Random 103 mg/dL (60-115); Potassium 4.7 mmol/L (3.3-5.1); Sodium 138 mmol/L (135-145); Total Protein 7.1 g/dL (6.5-8.0)
== END 2022-05-16 09:27 | disposition home or self-care (01) ==
LOC: HO.LAB 09:26
PROVIDERS: PCP Internal Medicine; Visit Provider Internal Medicine Gastroenterology
DX: D62 Acute posthemorrhagic anemia (principal); F10.20 Alcohol dependence, uncomplicated; K70.31 Alcoholic cirrhosis of liver with ascites; K75.81 Nonalcoholic steatohepatitis (NASH)
CPT/HCPCS: 36415; 80053; 99212

== ENCOUNTER 2022-06-20 10:21 | Outpatient (REF) | payer OTHER, SELFPAY ==
--- NOTE | ~2022-06-20 | US_ITS ---
EXAMINATION: US ABDOMEN LIMITED WITH LIVER ELASTOGRAPHY CLINICAL INFORMATION: Non alcoholic steatohepatitis COMPARISON: None. TECHNIQUE: Real-time imaging of the abdominal viscera. Noninvasive ultrasound liver fibrosis assessment is performed using Jadiel ElastPQ point quantification shear wave elastography (2D-SWE) with a C5-2 MHz transducer. Multiple elastography samples are obtained. FINDINGS: PANCREAS: Normal. The visualized pancreatic head and body are normal in appearance. The remainder of the pancreas is obscured from visualization by the overlying bowel gas. LIVER: The liver demonstrates normal size, contour and echogenicity. There is a small anechoic cyst right hepatic lobe measuring 1.2 x 1.0 x 1.0 cm. No additional lesions seen. There is no intrahepatic ductal dilatation. The right lobe measures 15.4 cm in length. The left lobe measures 14.3 cm in length. Portal flow is hepatopedal. Shear wave liver elastography median stiffness is 2.07 m/s (reference: normal median stiffness is 1.3 m/s or less). IQR/median stiffness to assess sampling precision is 0.05 (reference: good quality data set is IQR/median stiffness of 0.15 or less). GALLBLADDER: Normal. The gallbladder is physiologically distended without evidence of stones, sludge, polyps, wall thickening or pericholecystic fluid. COMMON BILE DUCT: Normal in caliber measuring 0.3 cm in diameter. RIGHT KIDNEY: Normal. No hydronephrosis. No renal calculi or focal parenchymal lesions. The kidney measures 14.3 cm in maximum dimension. FREE FLUID: None. US/US abdomen francois w elastography IMPRESSION: 1. Mild hepatic steatosis with right hepatic lobe cyst. 2. Liver elastography: Median liver stiffness measures 2.07 m/s which corresponds to cACLD (suggestive). REFERENCE: Society of Radiologists in Ultrasound Liver Stiffness Thresholds (2020): LIVER STIFFNESS THRESHOLDS: *Liver Stiffness equal or less than 1.3 m/s: High probability of being normal. *Liver Stiffness less than 1.7 m/s: In the absence of other known clinical signs, rules out compensated advanced chronic liver disease. *Liver Stiffness 1.7-2.1 m/s: Suggestive of compensated advanced chronic liver disease but need further test for confirmation. *Liver Stiffness over 2.1 m/s: Rules in compensated advanced chronic liver disease. *Liver Stiffness over 2.4 m/s: Suggestive of clinically significant portal hypertension. QUALITY OF DATA SET: *IQR/Median value equal or less than 0.15 implies a quality data set. *IQR/Median value over 0.15 implies a poor quality data set. SIGNIFICANT CHANGE FROM PRIOR EXAM: Significant change if liver stiffness measurement is 10% or greater from prior exam. OTHER CONSIDERATIONS: The stage of liver fibrosis may be overestimated in the setting of acute hepatitis, liver inflammation, elevated liver function tests, hepatic vascular congestion, obstructive cholestasis, non-fasting state, and infiltrative diseases such as amyloidosis and lymphoma. In some patients with NAFLD, the liver stiffness thresholds for compensated advanced chronic liver disease may be lower. In causes other than viral hepatitis and NAFLD, liver stiffness thresholds are not well established.
== END 2022-06-20 10:22 | disposition home or self-care (01) ==
LOC: HO.US 10:21
PROVIDERS: Visit Provider Internal Medicine Gastroenterology
DX: D62 Acute posthemorrhagic anemia (principal); F10.20 Alcohol dependence, uncomplicated; K70.31 Alcoholic cirrhosis of liver with ascites; K75.81 Nonalcoholic steatohepatitis (NASH)
CPT/HCPCS: 76705; 76981

== ENCOUNTER 2022-08-13 12:40 | Emergency (ER) | payer OTHER, SELFPAY ==
[2022-08-13 12:43] VITALS: BP 152/87; PULSE 57; RESP 20; TEMP 36.4; O2SAT 100; BMI 32.5
--- NOTE | 2022-08-13 12:43 | ED_ITS ---
HPI - General Adult General Chief complaint: Skin/Abscess/Foreign Body Stated complaint: cut on R leg Time Seen by Provider: 08/13/22 12:50 Source: patient Mode of arrival: ambulatory Limitations: no limitations History of Present Illness HPI narrative: Patient is a 31 year old assigned male at with a history of alcohol abuse presenting to the emergency department today with a right lower leg injury. Patient states that he was outside walking today when he caught his right lower leg on a thorn francisco and it cut his varicose vein through his jeans. Patient denies any dizziness, lightheadedness, abdominal pain, nausea, vomiting, fever, chills, blurry vision, double vision, loss of vision, chest pain, difficulty breathing, shortness of breath, back pain, night sweats, pain with urination, increased urinary frequency, increased urinary urgency, blood in his urine or stool, syncope or a near syncopal episode, bowel incontinence, bladder incontinence, bowel retention, bladder retention, or any other complaints at this time. Onset (ago): minute(s) Location: right and lower extremity Radiation: non-radiation Severity: mild Severity scale (1-10): 2 Relieving factors: none Exacerbating factors: none Associated symptoms: denies other symptoms Treatments prior to arrival: none Related Data Home Medications Medication Instructions Recorded Confirmed spironolactone 100 mg tablet 100 mg PO DAILY 05/16/22 Previous Rx's Medication Instructions Recorded [id number] 120 mcg-lutein 1 tab PO DAILY #30 tabs 12/31/21 150 mcg-herb 50 mg chewable tablet (Alive Men's 50 Plus Multivitamin) vitamin A palmitate 10,000 unit 10,000 unit PO DAILY #60 tabs 05/10/22 tablet zinc acetate 50 mg (zinc) capsule 50 mg PO DAILY #30 caps 05/10/22 nadolol 20 mg tablet 20 mg PO DAILY #30 tabs 05/23/22 ferrous sulfate 324 mg (65 mg 324 mg PO DAILY #30 tabs 07/15/22 iron) tablet,delayed release lactulose 10 gram/15 mL oral 15 ml PO BID #946 mL 07/15/22 solution furosemide 40 mg tablet 40 mg PO DAILY #30 tabs 07/22/22 omeprazole 40 mg capsule,delayed 40 mg PO DAILY #90 caps 07/22/22 release cephalexin 500 mg capsule 500 mg PO Q6H 7 days #28 caps 08/13/22 Allergies Allergy/AdvReac Type Severity Reaction Status Date / Time No Known Allergies Allergy Verified 05/16/22 09:36 Review of Systems Constitutional: Constitutional: Reports no additional constitutional complaints, Denies chills, Denies fever(s) and Denies night sweats Eyes: Eyes: Reports no additional eye complaints, Denies blurry vision, Denies change in vision, Denies diplopia, Denies eye discharge, Denies loss of vision and Denies eye pain ENT: Denies dizziness Cardiovascular: Cardiovascular: Reports no additional cardiovascular complaints, Denies chest pain, Denies lightheadedness, Denies Loss of Consciousness and Denies dyspnea Respiratory: Respiratory: Reports no additional respiratory complaints and Denies dyspnea Gastrointestinal: Gastrointestinal: Reports no additional gastrointestinal complaints, Denies abdominal pain, Denies melena, Denies hematochezia, Denies change in bowel habits and Denies change in stool character Genitourinary: Genitourinary: Reports no additional male genitourinary complaints, Denies hematuria, Denies oliguria, Denies difficulty urinating, Denies dysuria, Denies urinary frequency, Denies urinary hesitancy, Denies urinary incontinence and Denies urinary urgency Musculoskeletal: Musculoskeletal: Reports no additional musculoskeletal complaints, Denies numbness and Denies tingling Comments: right lower leg abrasion Neurologic: Denies dizziness, Denies loss of vision, Denies numbness and Denies tingling Psychiatric: Psychiatric: Reports no additional psychiatric complaints Endocrine: Endocrine: Reports no additional endocrine complaints Hematologic/Lymphatic: Hematologic/Lymphatic: Reports no additional hematologic/lymphatic complaints Allergic/Immunologic: Allergic/Immunologic: Reports no additional allergic/immunologic complaints [facility] Past Medical History Attestation statement: The following information was validated with the patient. Source: old records reviewed and nursing notes reviewed Surgical History Hx of wisdom tooth extraction Family History Family History Father Diabetes HTN (hypertension) Social History Social History Household Members: None Housing: Apartment Do you presently have visiting nurse or other home services: No Alcohol intake: current Alcohol type: hard liquor Patient Tobacco Use Status: Current someday Tobacco user Tobacco use type: Cigarette and Cigar Cigarettes Per Day: 3 Years Smoked: 5 Substance Use Type: Marijuana Advance Directives: No Advance Directives Information Provided: No service: No Current occupational status: unemployed Physical Exam ED Vital Signs: Vital Signs - 24 hr 08/13/22 12:43 Temperature 97.6 F Pulse Rate 57 Respiratory Rate 20 Blood Pressure 152/87 H Pulse Oximetry 100 Oxygen Delivery Method Room Air BMI result Body Mass Index 32.5 Const General: cooperative, no acute distress, alert and awake Nutritional Appearance: well nourished Orientation/consciousness: patient oriented x3 Limitations: no limitations HENMT Head: Yes normal to inspection and Yes atraumatic Ears: hearing grossly normal bilaterally and external ears normal General nose exam: Normal external nose present, no nasal discharge noted and no epistaxis Face and sinus: Yes normal facial exam, No abrasion and No laceration Mouth: Normal oral and palatal mucosa present, no drooling and no muffled voice Eyes General: appearance normal, both eyes and all related structures Periorbital: periorbital findings normal Eyelids: Yes eyelids normal Conjunctivae: conjunctivae normal Pupils: Equal, round and reactive pupils present EOM: EOMs intact bilaterally Neck Neck: Yes normal visual inspection, Yes full ROM and Yes no lymphadenopathy Chest Chest palpation & inspection: normal inspection of the chest Resp Effort & Inspection: normal respiratory effort and able to speak in complete sentences Auscultation: clear to auscultation bilaterally Cardio Rate: regular rate Rhythm: regular rhythm GI Inspection: Yes normal to inspection Palpation (GI): Soft to palpation, not firm, nontender, no guarding and not rigid Skin Other: small, superficial, abrasion to the right lower leg with no active bleeding and no gaping areas Neuro General: patient oriented x3 and moves all extremities Cranial nerves: Yes Equal, round and reactive pupils present Cognition (Neuro): normal cognition Motor exam (neuro): 5/5 motor strength present throughout Sensory Exam: Normal double simultaneous stimulation for sensation Coordination: [id number] test normal Extrem General: Yes full ROM and Yes capillary refill normal Psych Appearance: grossly normal Mental Status: mental status grossly normal Affect: normal affect Attitude: cooperative Thought process: Normal thought process present Thought content: Normal thought content present Insight: Good insight present (Psych) Medical Decision Making Medical Decision Making MDM Narrative: Patient is a 31 year old assigned male at with a history of alcohol abuse presenting to the emergency department today with a right lower leg laceration. Patient's physical exam showed a small, superficial, abrasion / laceration to the right anterior lower leg with no active bleeding or gaping areas. I re- wrapped the patient's leg with a mild pressure dressing. I explained my physical exam findings to the patient. I answered all questions asked by the patient. I stressed the importance of the patient taking his medication as prescribed. I stressed the importance of the patient following up with his primary care provider. I stressed the importance of the patient returning to the emergency department immediately if his symptoms were to worsen or if he were to develop any dizziness, shortness of breath, difficulty breathing, chest pain, blurry vision, loss of vision, nausea, vomiting, abdominal pain, fever, chills, back pain, or any other complaints. Patient verbalized agreement and understanding with this treatment plan and discharge. Differential Diagnosis Differential Diagnoses: The differential diagnosis associated with the presentation includes Laceration, abrasion Discharge Plan Discharge Clinical Impression: Abrasion Patient Disposition: Home, Self-Care Additional Instructions: Follow up with your primary care provider. Return to the emergency department immediately if your symptoms worsen or if you develop any dizziness, shortness of breath, difficulty breathing, chest pain, blurry vision, loss of vision, nausea, vomiting, abdominal pain, fever, chills, back pain, or any other complaints. Prescriptions: New cephalexin 500 mg capsule 500 mg PO Q6H 7 Days Qty: 28 0RF No Action vitamin A palmitate 10,000 unit tablet 10,000 unit PO DAILY Qty: 60 0RF zinc acetate 50 mg (zinc) capsule 50 mg PO DAILY Qty: 30 3RF nadolol 20 mg tablet 20 mg PO DAILY Qty: 30 2RF ferrous sulfate 324 mg (65 mg iron) tablet,delayed release (DR/EC) 324 mg PO DAILY Qty: 30 1RF lactulose 10 gram/15 mL solution 15 ml PO BID Qty: 946 1RF omeprazole 40 mg capsule,delayed release(DR/EC) 40 mg PO DAILY Qty: 90 1RF furosemide 40 mg tablet 40 mg PO DAILY Qty: 30 2RF Alive Men's 50 Plus Multivit 120 mcg-150 mcg -50 mg tablet,chewable 1 tab PO DAILY Qty: 30 1RF spironolactone 100 mg tablet 100 mg PO DAILY Referrals: Leroy Malloy MD [Primary Care Provider] - Print Language: French
== END 2022-08-13 12:56 | disposition home or self-care (01) ==
PROVIDERS: Emergency Provider Emergency Medicine; PCP Internal Medicine
DX: S80.811A Abrasion, right lower leg, initial encounter (principal); W45.8XXA Other foreign body or object entering through skin, initial encounter; F10.10 Alcohol abuse, uncomplicated; Y93.01 Activity, walking, marching and hiking; Y92.480 Sidewalk as the place of occurrence of the external cause; Y99.9 Unspecified external cause status
CPT/HCPCS: 99282; 99283

== ENCOUNTER 2022-08-19 11:45 | Outpatient (REF) | payer OTHER, SELFPAY ==
[2022-08-19 12:15] LABS: MANUAL DIFF FLAG NO
[2022-08-19 12:29] LABS: Basophils Absolute Auto 0.1 X10*3/uL (0.0-0.2); Basophils Percent Auto 0.9 % (0-2); Eosinophils Absolute Auto 0.2 X10*3/uL (0.0-0.4); Eosinophils Percent Auto 3.6 % (0-4); Hematocrit 40.9 % (42.0-52.0); Hemoglobin 13.9 g/dl (14.0-18.0); Imm Gran Abs Auto 0.01 X10*3/uL (0.00-0.03); Imm Gran Pct Auto 0.2 % (0.0-0.4); Lymphocytes Percent Auto 33.4 % (20-40); Mean Corpuscular Hemoglobin 30.4 pg (27.0-33.0); Mean Corpuscular Volume 89.5 fL (80.0-98.0); Mean Platelet Volume 10.3 fL (9.4-12.4); Monocytes Absolute Auto 0.5 X10*3/uL (0.1-1.2); Monocytes Percent Auto 7.9 % (2-11); Neutrophils Absolute Auto 3.2 x10*3/uL (2.0-8.3); Platelet Count 154 X10*3/uL (160-400); Red Blood Count 4.57 X10*6/uL (4.60-5.80); Red Cell Distribution Width 13.3 % (11.0-16.0); White Blood Count 5.8 X10*3/uL (4.8-10.8)
[2022-08-19 12:36] LABS: INTERNATIONAL NORM RATIO 1.2 (0.9-1.1); Prothrombin Time 13.8 SEC (10.0-13.1)
[2022-08-19 12:59] LABS: Alanine Aminotransferase 25 U/L (0-40); Albumin Level 4.3 g/dL (3.5-5.0); Alkaline Phosphatase 149 U/L (39-117); Anion Gap 14 (12-20); Aspartate Amino Transferase 33 U/L (5-37); Bilirubin Total 3.6 mg/dL (0.0-1.0); Blood Urea Nitrogen 17 mg/dL (9-16); Carbon Dioxide 27 mmol/L (22-29); Chloride 103 mmol/L (96-108); Estimated Glomerular Filt Rate > 60; Glucose Random 115 mg/dL (60-115); Potassium 4.9 mmol/L (3.3-5.1); Sodium 139 mmol/L (135-145); Total Protein 7.1 g/dL (6.5-8.0)
[2022-08-19 13:29] LABS: Ferritin 174 ng/mL (20-250); Folate 13.1 ng/mL (> or = 4.0); Vitamin B12 596 pg/mL (200-900)
[2022-08-23 15:43] LABS: Zinc 66 mcg/dL (60-130)
[2022-08-24 17:08] LABS: Vitamin A 31 mcg/dL (38-98)
== END 2022-08-19 11:46 | disposition home or self-care (01) ==
LOC: HO.LAB 11:45
PROVIDERS: PCP Internal Medicine; Visit Provider Internal Medicine Gastroenterology
DX: D62 Acute posthemorrhagic anemia (principal); F10.20 Alcohol dependence, uncomplicated; K70.31 Alcoholic cirrhosis of liver with ascites; K75.81 Nonalcoholic steatohepatitis (NASH)
CPT/HCPCS: 36415; 80053; 82607; 82728; 82746; 84590; 84630; 85025; 85610

== ENCOUNTER → 2022-08-26 09:25 | Outpatient (BNVA) | payer OTHER, SELFPAY | PROVIDERS: PCP Internal Medicine; Visit Provider Internal Medicine Gastroenterology | DX: N18.30 Chronic kidney disease, stage 3 unspecified (principal); F10.20 Alcohol dependence, uncomplicated; Z79.899 Other long term (current) drug therapy | CPT/HCPCS: 99212 ==

== ENCOUNTER 2022-09-12 16:27 | Outpatient (REF) | payer OTHER, SELFPAY ==
[2022-09-12 17:47] LABS: Anion Gap 13 (12-20); Blood Urea Nitrogen 15 mg/dL (9-16); Calcium 9.7 mg/dL (8.4-10.2); Carbon Dioxide 27 mmol/L (22-29); Chloride 106 mmol/L (96-108); Estimated Glomerular Filt Rate > 60; Glucose Random 87 mg/dL (60-115); Potassium 4.8 mmol/L (3.3-5.1); Sodium 141 mmol/L (135-145)
== END 2022-09-12 16:28 | disposition home or self-care (01) ==
LOC: HO.LAB 16:27
PROVIDERS: PCP Internal Medicine; Visit Provider Internal Medicine Gastroenterology
DX: N18.30 Chronic kidney disease, stage 3 unspecified (principal)
CPT/HCPCS: 36415; 80048

== ENCOUNTER → 2023-01-04 13:53 | Day surgery (SDC) | payer OTHER, SELFPAY ==
--- NOTE | 2023-01-03 12:00 | HO.ANESPROP2 ---
HPI - Anesthesia Eval Consult details Narrative: 32yo M for Upper Endoscopy ETOH cirrhosis - no ETOH > 1 year per GI note. Remote hx polysub abuse PMFSH Active Problems Active Problems: All Active Problems (Updated 12/30/22 @ 14:19 by Yuki Borden RN) Acute hepatic encephalopathy (Acute) Acute alcoholic liver disease (Acute) Alcohol abuse (Acute) Ascites due to alcoholic cirrhosis (Acute) Anemia (Acute) Hyponatremia (Acute) Hyperkalemia (Acute) Acute on chronic blood loss anemia (Acute) Alcohol use disorder, severe, dependence (Acute) Symptom of leg swelling (Acute) Past Medical History Medical History (Updated 12/30/22 @ 14:19 by Yuki Borden RN) Alcoholic hepatitis Family History Family History Father Diabetes HTN (hypertension) Surgical History Surgical History Hx of wisdom tooth extraction Social History Social History Household Members: None Housing: Apartment Do you presently have visiting nurse or other home services: No Alcohol intake: current Alcohol intake frequency: former alcohol drinker Alcohol type: hard liquor Patient Tobacco Use Status: Current someday Tobacco user Tobacco use type: Cigarette Cigarettes Per Day: 3 Years Smoked: 5 Date Education Initiated: 01/04/23 Use of substances other than those prescribed or required for medical reasons: Yes Substance Use Type: Marijuana Substance Use Type Other:: 2xweek Are you DNR?: No Advance Directives: No Advance Directives Information Provided: Yes service: No Current occupational status: unemployed Meds Allergies Allergy/AdvReac Type Severity Reaction Status Date / Time No Known Allergies Allergy Verified 08/26/22 09:33 Exam Exam Date and Time: January 03, 2023 1200 Pertinent Lab Results Pertinent Lab Results: Laboratory Tests 08/19/22 09/12/22 12:14 16:48 WBC 5.8 Hgb 13.9 L Hct 40.9 L Plt Count 154 L Sodium 141 Potassium 4.8 Chloride 106 Carbon Dioxide 27 BUN 15 Creatinine 0.81 Narrative Narrative: US abdomen francois w elastography 06/2022 IMPRESSION: 1. Mild hepatic steatosis with right hepatic lobe cyst. ? 2. Liver elastography: Median liver stiffness measures 2.07 m/s which corresponds to cACLD? (suggestive). Paracentesis 10/2021 800ml nae fluid drained Assessment and Plan Assessment Anesthesia Assessment: Chart Reviewed
[2023-01-04 14:12] VITALS: BMI 28.2
[2023-01-04 14:15] VITALS: BP 120/86; PULSE 82; RESP 18; TEMP 36.4; O2SAT 99
--- NOTE | 2023-01-04 15:02 | MHC.SHP ---
Pre-Procedural Eval Section A Date of Service: 01/04/23 Section B Chief Complaint: Alcoholic cirrhosis of liver with ascites,anemia Relevant Family History (Specify if Yes): No Relevant Social History: Tobacco Use Present Medications: see Short Stay Collaborative assessment Medical History: Significant History (Alcoholic hepatitis) History of Previous Operations: No relevant previous surgery Allergies: Allergies Allergy/AdvReac Type Severity Reaction Status Date / Time No Known Allergies Allergy Verified 08/26/22 09:33 Review of Systems Sugical H&P ROS: Negative: Constitution, Cardiovascular, Respiratory, Neurological, Psychiatric, Hem-Onc, Allergic/Immunologic, Gastrointestinal, Genitourinary, Musculoskeletal, Integumentary, Endocrine and Eyes/Ears/Nose/Throat Exam Surgical H&P Exam: Normal: HEENT, Normal: Heart, Normal: Lungs, Normal: Extremities, Normal: Abdomen, Normal: Skin and Normal: Neurological Plan Diagnosis/Plan: Unchanged I have reviewed the history and physical and performed a pertinent physical examination on my patient. No changes have occurred unless specified. Time Spent With Patient Time: Total time managing care of this patient today ____ minutes.
--- NOTE | 2023-01-04 15:03 | W.PM.OPN ---
Operative Note Operative Note Date of Service: 01/04/23 Narrative: Procedure Description: EGD Indication: cirrhosis and alcohol liver disease Anesthesia: MAC FLEXIBLE TRANSORAL UPPER GASTROINTESTINAL ENDOSCOPY UPPER ENDOSCOPY Consent: Indications for the procedure and potential complications of bleeding, perforation, reaction to medications and missed diagnosis were discussed with the patient and informed consent was obtained. Instrument: Olympus GIF H 190 J mid size upper endoscope Monitoring: Vital signs and clinical assessment, continuous EKG monitoring, Pulse oximetry, Carbon Dioxide monitoring and blood pressure monitoring were done throughout the procedure. Procedure: The patient was placed in the left lateral decubitis position and pre-procedure medications were administered and a bite block was placed. The endoscope was inserted into the mouth and advanced under direct vision to the third part of duodenum. A careful inspection was made as the upper endoscope was withdrawn including a retroflexed examination of the proximal stomach; Findings and interventions are described below. Findings: Larynx:normal Esophagus: GE junction at 37 cm, diaphragm hiatus at 37 cm, x 1 small varix which collapsed with air insufflation, mild esophagitis noted around the GEJ Stomach: Patchy gastric erythema with mosaic pattern consistent with portal hypertensive gastropathy. Grade 2 flap valve on retroflexed examination of the cardia. Duodenum: Normal bulb and descending duodenum, Intervention: none Impression/Findings: portal hypertensive gastropathy esophgeal varix mild esophagitis PLAN: repeat EGD 1-2 yrs or earlier if clinically indicated GERD precautions PPI compliance
[2023-01-04 15:34] VITALS: BP 117/65; PULSE 85; RESP 16; TEMP 37.1; O2SAT 98
[2023-01-04 15:49] VITALS: BP 113/78; PULSE 76; RESP 16; TEMP 36.6; O2SAT 96
== END | disposition home or self-care (01) ==
PROVIDERS: PCP Internal Medicine; Visit Provider Internal Medicine Gastroenterology
PROC: 0DJ08ZZ Inspection of Upper Intestinal Tract, Via Natural or Artificial Opening Endoscopic (ICD-10-PCS; CPT 43235; principal; 2023-01-04 15:40)
DX: K70.31 Alcoholic cirrhosis of liver with ascites (principal); K70.10 Alcoholic hepatitis without ascites; K76.82 Hepatic encephalopathy; F10.288 Alcohol dependence with other alcohol-induced disorder; K76.6 Portal hypertension; K31.89 Other diseases of stomach and duodenum; K20.80 Other esophagitis without bleeding; I85.00 Esophageal varices without bleeding; K44.9 Diaphragmatic hernia without obstruction or gangrene; E87.1 Hypo-osmolality and hyponatremia; E87.5 Hyperkalemia; D62 Acute posthemorrhagic anemia; M79.89 Other specified soft tissue disorders; N18.30 Chronic kidney disease, stage 3 unspecified; Z79.899 Other long term (current) drug therapy; F19.11 Other psychoactive substance abuse, in remission; F17.210 Nicotine dependence, cigarettes, uncomplicated; F12.90 Cannabis use, unspecified, uncomplicated
CPT/HCPCS: 43235

== ENCOUNTER 2023-02-24 09:02 | Outpatient (AMB) | payer OTHER, SELFPAY ==
[2023-02-24 09:04] VITALS: BP 133/77; PULSE 63; BMI 27.2
--- NOTE | 2023-02-24 09:04 | MHC.OFFVIS ---
Intake Vital Signs 02/24/23 09:04 Height 6 ft Weight 200 lb 9.93 oz BMI 27.2 BP 133/77 Blood Pressure Location Lt brachial Position Sitting Pulse 63 Intake Visit Reasons: 6 MONTH FOLLOW UP Intake Note: Nery presents in the office as a 6 month follow up. CC: He states that he had a EGD in December and he feels better than ever. Client Services Assistant Required: No Allergies No Known Allergies Allergy (Verified 02/24/23 09:07) HPI 6 MONTH FOLLOW UP HPI Details 32 yr old m here for f/u for alcoholic cirrhosis RECAP: I had seen him as an in patient 10/2021 Patient had not been feeling well for few days prior to admission? He noted worsening jaundice few weeks ago with poor appetite and malaise as well as abdominal distention and ankle swelling. He drinks hard liquor daily for years, and last drank yesterday. Remote use of cocaine and heroin in past. strong FH of alcoholism. he denies abdominal pain, but has slight discomfort, no nausea, no vomiting no melena or rectal bleeding. Does admit to poor memory recently but better today after fluids and hydration. No fevers or chills, never had liver problems before. No SOB, cough or sputum. Friends are mostly alcoholics as well, started drinking from age of 18. He was d/c'ed on pred and had been alcohol abstinent, LFT had been improving I had increased aldactone and lasix due to worsening Imaging: CT with nodular liver, ascites, varices noted, splenomegaly. doppler done for DVT--neg US 07/07-- steatosis, increased elastography Labs: raised LFT--coming down with alcohol abstinence, HGb improving EGD 01/06- PHG small varix INTERIM: conts to improve, has a job now, remains alcohol free appetite is good, taking nutritional supplements incl Vit A leg edema -not an issue no abdominal pain no nausea or vomiting no melena, no rectal bleeding EXAM: GENERAL: The patient is healthy appearing , VITAL SIGNS:see workflow HEENT: nonicteric sclerae, PERRLA, EOMI. Oropharynx clear. Moist mucous membranes. Conjunctivae appear well perfused. No thyroid mass. CHEST: Chest wall is nontender. HEART: Regular rate and rhythm without murmurs. LUNGS: Clear to auscultation bilaterally. ABDOMEN: Soft, positive bowel sounds, nontender, no organomegaly.no flank tenderness SKIN: No rash, no excessive bruising, petechiae, or purpura. NEUROLOGIC: Cranial nerves II-XII intact without motor/sensory deficit. No flapping tremor LEGS: varicose veins, A/P: 1/ Alcoholic hepatitis numbers continuously improving, heading in right direction, remains alcohol free 2/ severe leg edema 2/2 to cirrhosis--resolved 3/ nutritional defcn--improving PLAN: 1/ stop aldactone, and lactulose 2/ lo salt intake <2 g-- 3/ repeat US imaging now 4/ recheck labs 5/ cont with vit supplements as prescribed, 6/ repeat EGD 1-2 yr? ? [facility] Medical History Alcoholic hepatitis Surgical History (Updated 02/24/23 @ 09:07 by CELIA Bashir) History of esophagogastroduodenoscopy (EGD) Hx of wisdom tooth extraction Family History Father Diabetes HTN (hypertension) Social History Household Members: None Housing: Apartment Do you presently have visiting nurse or other home services: No Alcohol intake: current Alcohol intake frequency: former alcohol drinker Alcohol type: hard liquor Patient Tobacco Use Status: Current someday Tobacco user Tobacco use type: Cigarette Cigarettes Per Day: 3 Years Smoked: 5 Substance Use Type: Marijuana service: No Current occupational status: unemployed Physical Exam Vital Signs: Last Vital Signs Pulse 63 02/24/23 09:04 BP 133/77 02/24/23 09:04 BMI result Body Mass Index 27.2 Assessment & Plan Assessment & Plan (1) Anemia: Code(s): D64.9 - Anemia, unspecified (2) Ascites due to alcoholic cirrhosis: Code(s): K70.31 - Alcoholic cirrhosis of liver with ascites Orders: Orders Vitamin B12 and Folate Today D64.9 - Anemia, unspecified, K70.31 - Alcoholic cirrhosis of liver with ascites Comprehensive Met. Panel Today D64.9 - Anemia, unspecified, K70.31 - Alcoholic cirrhosis of liver with ascites, K75.81 - Nonalcoholic steatohepatitis (FARFAN) Vitamin B3 (Niacin) Today D64.9 - Anemia, unspecified, K70.31 - Alcoholic cirrhosis of liver with ascites Vitamin A Today D64.9 - Anemia, unspecified, K70.31 - Alcoholic cirrhosis of liver with ascites Vitamin B1 Today D64.9 - Anemia, unspecified, K70.31 - Alcoholic cirrhosis of liver with ascites Vitamin D 25-OH Total Today D64.9 - Anemia, unspecified, K70.31 - Alcoholic cirrhosis of liver with ascites Prothrombin Time INR Today D64.9 - Anemia, unspecified, K70.31 - Alcoholic cirrhosis of liver with ascites Complete Blood Count Auto Diff Today D64.9 - Anemia, unspecified, K70.31 - Alcoholic cirrhosis of liver with ascites US abdomen francois w elastography Today D64.9 - Anemia, unspecified, K70.31 - Alcoholic cirrhosis of liver with ascites, K74.60 - Unspecified cirrhosis of liver, K75.81 - Nonalcoholic steatohepatitis (FARFAN) Coding Level of Care Code Est Pt Level 3 (07627) Diagnoses Anemia D64.9 Ascites due to alcoholic cirrhosis K70.31
== END 2023-02-24 09:36 | disposition home or self-care (01) ==
PROVIDERS: Visit Provider Internal Medicine Gastroenterology
DX: D64.9 Anemia, unspecified (principal); K70.31 Alcoholic cirrhosis of liver with ascites
CPT/HCPCS: 99213

== ENCOUNTER 2023-02-24 09:02 | Outpatient (REF) | payer OTHER, SELFPAY ==
[2023-02-24 09:55] LABS: MANUAL DIFF FLAG NO
[2023-02-24 10:28] LABS: Basophils Percent Auto 0.5 % (0-2); Eosinophils Absolute Auto 0.1 X10*3/uL (0.0-0.4); Hematocrit 42.7 % (42.0-52.0); Hemoglobin 14.9 g/dl (14.0-18.0); Imm Gran Abs Auto 0.02 X10*3/uL (0.00-0.03); Imm Gran Pct Auto 0.4 % (0.0-0.4); Lymphocytes Absolute Auto 1.5 X10*3/uL (1.2-4.9); Lymphocytes Percent Auto 26.2 % (20-40); Mean Corpuscular HGB Conc 34.9 g/dl (31.0-36.0); Mean Corpuscular Hemoglobin 30.3 pg (27.0-33.0); Mean Platelet Volume 9.6 fL (9.4-12.4); Monocytes Absolute Auto 0.3 X10*3/uL (0.1-1.2); Monocytes Percent Auto 5.3 % (2-11); Neutrophils Absolute Auto 3.7 x10*3/uL (2.0-8.3); Neutrophils Percent Auto 65.6 % (45-73); Platelet Count 149 X10*3/uL (160-400); Red Blood Count 4.91 X10*6/uL (4.60-5.80); Red Cell Distribution Width 12.9 % (11.0-16.0); White Blood Count 5.6 X10*3/uL (4.8-10.8)
[2023-02-24 10:35] LABS: INTERNATIONAL NORM RATIO 1.1 (0.9-1.1); Prothrombin Time 13.5 SEC (11.1-13.3)
[2023-02-24 11:13] LABS: Alanine Aminotransferase 19 U/L (0-40); Albumin Level 4.6 g/dL (3.5-5.0); Alkaline Phosphatase 86 U/L (39-117); Anion Gap 12 (12-20); Aspartate Amino Transferase 21 U/L (5-37); Bilirubin Total 2.9 mg/dL (0.0-1.0); Blood Urea Nitrogen 12 mg/dL (9-16); Calcium 10.4 mg/dL (8.4-10.2); Carbon Dioxide 27 mmol/L (22-29); Chloride 104 mmol/L (96-108); Estimated Glomerular Filt Rate > 60; Glucose Random 112 mg/dL (60-115); Potassium 4.8 mmol/L (3.3-5.1); Sodium 138 mmol/L (135-145); Total Protein 7.6 g/dL (6.5-8.0)
[2023-02-24 11:53] LABS: Folate 9.2 ng/mL (> or = 4.0); Vitamin B12 692 pg/mL (200-900)
[2023-03-02 11:48] LABS: Nicotinamide 21 ng/mL; Vit B3 - Nicotinic Acid <20 ng/mL
[2023-03-02 14:49] LABS: Vitamin B1 <6 nmol/L (8-30)
[2023-03-02 17:28] LABS: Vitamin A 30 mcg/dL (38-98)
== END 2023-02-24 09:03 | disposition home or self-care (01) ==
LOC: HO.LAB 09:02
PROVIDERS: PCP Internal Medicine; Visit Provider Internal Medicine Gastroenterology
DX: K70.31 Alcoholic cirrhosis of liver with ascites (principal); K75.81 Nonalcoholic steatohepatitis (NASH); K70.30 Alcoholic cirrhosis of liver without ascites; D64.9 Anemia, unspecified; F10.21 Alcohol dependence, in remission
CPT/HCPCS: 36415; 80053; 82306; 82607; 82746; 84425; 84590; 84591; 85025; 85610; 99212

== ENCOUNTER 2023-08-28 08:52 | Outpatient (REF) | payer OTHER, SELFPAY ==
[2023-08-28 10:04] LABS: MANUAL DIFF FLAG NO
[2023-08-28 10:59] LABS: Basophils Percent Auto 1.4 % (0-2); Eosinophils Absolute Auto 0.1 X10*3/uL (0.0-0.4); Eosinophils Percent Auto 3.9 % (0-4); Hematocrit 42.2 % (42.0-52.0); Hemoglobin 14.5 g/dl (14.0-18.0); Lymphocytes Absolute Auto 1.1 X10*3/uL (1.2-4.9); Lymphocytes Percent Auto 38.2 % (20-40); Mean Corpuscular HGB Conc 34.4 g/dl (31.0-36.0); Mean Corpuscular Hemoglobin 29.6 pg (27.0-33.0); Mean Corpuscular Volume 86.1 fL (80.0-98.0); Mean Platelet Volume 9.7 fL (9.4-12.4); Monocytes Absolute Auto 0.3 X10*3/uL (0.1-1.2); Monocytes Percent Auto 10.7 % (2-11); Neutrophils Absolute Auto 1.3 x10*3/uL (2.0-8.3); Neutrophils Percent Auto 45.8 % (45-73); Platelet Count 121 X10*3/uL (160-400); Red Cell Distribution Width 12.9 % (11.0-16.0); White Blood Count 2.8 X10*3/uL (4.8-10.8)
[2023-08-28 11:06] LABS: INTERNATIONAL NORM RATIO 1.1 (0.9-1.1); Prothrombin Time 12.9 SEC (11.1-13.3)
[2023-08-28 11:50] LABS: Alanine Aminotransferase 16 U/L (0-40); Albumin Level 4.2 g/dL (3.5-5.0); Alkaline Phosphatase 57 U/L (39-117); Anion Gap 10 (12-20); Aspartate Amino Transferase 23 U/L (5-37); Bilirubin Total 1.8 mg/dL (0.0-1.0); Blood Urea Nitrogen 13 mg/dL (9-16); Carbon Dioxide 28 mmol/L (22-29); Chloride 105 mmol/L (96-108); Estimated Glomerular Filt Rate > 60; Glucose Random 93 mg/dL (60-115); Iron 132 mcg/dL (45-160); Percent Iron Saturation 53 % (15-50); Potassium 4.2 mmol/L (3.3-5.1); Sodium 139 mmol/L (135-145); Total Iron Binding Capacity 251 mcg/dL (228-428); Total Protein 6.8 g/dL (6.5-8.0); Unsaturated Iron Binding 119 ug/dL
[2023-08-28 12:08] LABS: Ferritin 170 ng/mL (20-250)
[2023-08-31 11:23] LABS: Vitamin A 31 mcg/dL (38-98)
[2023-09-03 15:49] LABS: Vitamin B1 100 nmol/L (8-30)
== END 2023-08-28 08:53 | disposition home or self-care (01) ==
LOC: HO.LAB 08:52
PROVIDERS: PCP Internal Medicine; Visit Provider Internal Medicine Gastroenterology
DX: K70.31 Alcoholic cirrhosis of liver with ascites (principal); D64.9 Anemia, unspecified; K75.81 Nonalcoholic steatohepatitis (NASH); F10.10 Alcohol abuse, uncomplicated; D62 Acute posthemorrhagic anemia
CPT/HCPCS: 36415; 80053; 82728; 83540; 84425; 84590; 85025; 85610

== ENCOUNTER 2023-08-28 08:52 | Outpatient (AMB) | payer OTHER, SELFPAY ==
[2023-08-28 08:59] VITALS: BP 154/97; PULSE 58; BMI 29.4
--- NOTE | 2023-08-28 08:59 | A.OFFVIS_ITS ---
Intake Vital Signs 08/28/23 08:59 Height 6 ft Weight 216 lb 14.958 oz BMI 29.4 BP 154/97 H Blood Pressure Location Lt brachial Position Sitting Pulse 58 Intake Visit Reasons: 6 month follow up Intake Note: Nery presents in the office as a 6 month follow up of labs and anemia. CC: Patient reports feeling great. Denies having any GI issues today. Admission Discharge Rn Required: No Accompanied by: Self / Same As Patient Allergies No Known Allergies Allergy (Verified 08/28/23 09:02) HPI 6 month follow up HPI Details 33 yr old m here for f/u for alcoholic c irrhosis RECAP: I had seen him as an in patient 10/2021 Patient had not been feeling well for few days prior to admission He noted worsening jaundice few weeks ago with poor appetite and malaise as well as abdominal distention and ankle swelling. He drinks hard liquor daily for years, and last drank yesterday. Remote use of cocaine and heroin in past. strong FH of alcoholism. he denies abdominal pain, but has slight discomfort, no nausea, no vomiting no melena or rectal bleeding. Does admit to poor memory recently but better today after fluids and hydration. No fevers or chills, never had liver problems before. No SOB, cough or sputum. Friends are mostly alcoholics as well, started drinking from age of 18. He was d/c'ed on pred and had been alcohol abstinent, LFT had been improving I had increased aldactone and lasix due to worsening Imaging: CT with nodular liver, ascites, varices noted, splenomegaly. doppler done for DVT--neg US 07/07-- steatosis, increased elastography Labs: raised LFT--coming down with alcohol abstinence, HGb improving EGD 01/06- PHG small varix INTERIM: starting new job soon remains alcohol free for 2 yrs no abdominal pain no nausea or vomiting no melena, no rectal bleeding gained some weight but feels well no leg swelling still taking vit A supplement EXAM: GENERAL: The patient is healthy appearing , VITAL SIGNS:see workflow HEENT: nonicteric sclerae, PERRLA, EOMI. Oropharynx clear. Moist mucous m embranes. Conjunctivae appear well perfused. No thyroid mass. CHEST: Chest wall is nontender. HEART: Regular rate and rhythm without murmurs. LUNGS: Clear to auscultation bilaterally. ABDOMEN: Soft, positive bowel sounds, nontender, no organomegaly.no flank tenderness SKIN: No rash, no excessive bruising, petechiae, or purpura. NEUROLOGIC: Cranial nerves II-XII intact without motor/sensory deficit. No flapping tremor LEGS: varicose veins, A/P: 1/ Alcoholic hepatitis--resolved 2/ severe leg edema 2/2 to cirrhosis--re solved 3/ nutritional defcn--improving PLAN: 1/ cont with nadolol and omeprazole for the moment 2/ lo salt intake <2 g-- cont to monitor SHIRA at home, if repeatedly >130/80---will treat 3/ repeat US imaging now--pending 4/ recheck labs today 5/ cont with vit supplements as prescrib ed, might be able to stop iron, thiamine 6/ repeat EGD 1-2 yr [facility] Medical History Alcoholic hepatitis Surgical History History of esophagogastroduodenoscopy (EGD) Hx of wisdom tooth extraction Family History Father Diabetes HTN (hypertension) Social History Household Members: None Housing: Apartment Do you presently have visiting nurse or other home services: No Alcohol intake: current Alcohol intake frequency: former alcohol drinker Alcohol type: hard liquor Comment: pt refuses alarm Patient Tobacco Use Status: Current someday Tobacco user Tobacco use type: Cigarette Cigarettes Per Day: 3 Years Smoked: 5 Substance Use Type: Marijuana service: No Current occupational status: unemployed Physical Exam Vital Signs: Last Vital Signs Pulse 58 08/28/23 08:59 BP 154/97 H 08/28/23 08:59 BMI result Body Mass Index 29.4 Assessment & Plan Assessment & Plan (1) Alcohol abuse: Code(s): F10.10 - Alcohol abuse, uncomplicated Plan: A/P: 1/ Alcoholic hepatitis--resolved 2/ severe leg edema 2/2 to cirrhosis--resolved 3/ nutritional defcn--improving PLAN: 1/ cont with nadolol and omeprazole for the moment 2/ lo salt intake <2 g-- cont to monitor SHIRA at home, if repeatedly >130/80---will treat 3/ repeat US imaging now--pending 4/ recheck labs today 5/ cont with vit supplements as prescribed, might be able to stop iron, thiamine 6/ repeat EGD 1-2 yr (2) Acute on chronic blood loss anemia: Code(s): D62 - Acute posthemorrhagic anemia Plan: A/P: 1/ Alcoholic hepatitis--resolved 2/ severe leg edema 2/2 to cirrhosis--resolved 3/ nutritional defcn--improving PLAN: 1/ cont with nadolol and omeprazole for the moment 2/ lo salt intake <2 g-- cont to monitor SHIRA at home, if repeatedly >130/80---will treat 3/ repeat US imaging now--pending 4/ recheck labs today 5/ cont with vit supplements as prescribed, might be able to stop iron, thiamine 6/ repeat EGD 1-2 yr Orders: Orders Vitamin B1 Today D62 - Acute posthemorrhagic anemia, F10.10 - Alcohol abuse, uncomplicated Vitamin A Today D62 - Acute posthemorrhagic anemia, F10.10 - Alcohol abuse, uncomplicated Coding Level of Care Code Est Pt Level 4 (68552) Diagnoses Alcohol abuse F10.10 Acute on chronic blood loss anemia D62
== END 2023-08-28 09:21 | disposition home or self-care (01) ==
PROVIDERS: PCP Internal Medicine; Visit Provider Internal Medicine Gastroenterology
DX: F10.10 Alcohol abuse, uncomplicated (principal); D62 Acute posthemorrhagic anemia
CPT/HCPCS: 99214

== ENCOUNTER 2024-01-10 08:00 | Outpatient (REF) | payer OTHER, SELFPAY ==
--- NOTE | ~2024-01-10 | US_ITS ---
EXAMINATION: US ABDOMEN LIMITED WITH LIVER ELASTOGRAPHY CLINICAL INFORMATION: Nonalcoholic steatohepatitis. COMPARISON: Abdominal ultrasound dated 06/20/2022; CT abdomen and pelvis dated 11/07/2021. TECHNIQUE: Real-time imaging of the abdominal viscera. Noninvasive ultrasound liver fibrosis assessment is performed using Jadiel ElastPQ point quantification shear wave elastography (2D-SWE) with a C5-2 MHz transducer. Multiple elastography samples are obtained. FINDINGS: PANCREAS: Normal. The visualized pancreatic head and body are normal in appearance. The remainder of the pancreas is obscured from visualization by the overlying bowel gas. LIVER: Within the right hepatic lobe, a 9 mm benign, simple cyst is seen, for which no imaging follow-up is recommended. The liver demonstrates normal size, contour and coarse echogenicity. No focal solid lesion or intrahepatic biliary duct dilatation. The right lobe measures 14.0 cm in length. The left lobe measures 14.4 cm in length. Portal flow is towards the liver (hepatopetal). Shear wave liver elastography median stiffness is 2.31 m/s (reference: normal median stiffness is 1.3 m/s or less). IQR/median stiffness to assess sampling precision is 0.12 (reference: good quality data set is IQR/median stiffness of 0.15 or less). GALLBLADDER: There are echogenic gallstones and sludge balls. There is gallbladder wall thickening to 4 mm. There is no pericholecystic fluid. COMMON BILE DUCT: Normal in caliber measuring 0.2 cm in diameter. RIGHT KIDNEY: Normal. No hydronephrosis. There are persistent lobulations. No renal calculi or focal parenchymal lesions. The kidney measures 12.8 cm in maximum dimension. FREE FLUID: None. US/US abdomen francois w elastography IMPRESSION: 1. There is generalized increase in hepatic echotexture, consistent with fatty infiltration or hepatocellular disease. Please correlate clinically. No focal hepatic mass or intrahepatic biliary dilatation is seen. 2. Liver elastography: Measurements are suggestive of clinically significant portal hypertension. When compared with prior exam, there is a statistically significant increase in liver stiffness (increase at least 10%). 3. There is cholelithiasis and cholecystitis, likely chronic, for which clinical correlation is recommended. REFERENCE: Society of Radiologists in Ultrasound Liver Stiffness Thresholds (2020): LIVER STIFFNESS THRESHOLDS: *Liver Stiffness equal or less than 1.3 m/s: High probability of being normal. *Liver Stiffness less than 1.7 m/s: In the absence of other known clinical signs, rules out compensated advanced chronic liver disease. *Liver Stiffness 1.7-2.1 m/s: Suggestive of compensated advanced chronic liver disease but need further test for confirmation. *Liver Stiffness over 2.1 m/s: Rules in compensated advanced chronic liver disease. *Liver Stiffness over 2.4 m/s: Suggestive of clinically significant portal hypertension. QUALITY OF DATA SET: *IQR/Median value equal or less than 0.15 implies a quality data set. *IQR/Median value over 0.15 implies a poor quality data set. SIGNIFICANT CHANGE FROM PRIOR EXAM: Significant change if liver stiffness measurement is 10% or greater from prior exam. OTHER CONSIDERATIONS: The stage of liver fibrosis may be overestimated in the setting of acute hepatitis, liver inflammation, elevated liver function tests, hepatic vascular congestion, obstructive cholestasis, non-fasting state, and infiltrative diseases such as amyloidosis and lymphoma. In some patients with NAFLD, the liver stiffness thresholds for compensated advanced chronic liver disease may be lower. In causes other than viral hepatitis and NAFLD, liver stiffness thresholds are not well established.
== END 2024-01-10 08:01 | disposition home or self-care (01) ==
LOC: HO.US 08:00
PROVIDERS: PCP Internal Medicine; Visit Provider Internal Medicine Gastroenterology
DX: K75.81 Nonalcoholic steatohepatitis (NASH) (principal); D64.9 Anemia, unspecified; K70.31 Alcoholic cirrhosis of liver with ascites
CPT/HCPCS: 76705; 76981

== ENCOUNTER 2024-03-01 09:41 | Outpatient (AMB) | payer OTHER, SELFPAY ==
[2024-03-01 09:42] VITALS: BP 152/84; PULSE 57; O2SAT 100; BMI 30.2
--- NOTE | 2024-03-01 09:42 | MHC.OFFVIS ---
Vital Signs 03/01/24 09:42 03/01/24 10:00 Height 6 ft Weight 222 lb 10.67 oz BMI 30.2 BP 152/84 H 148/86 H Blood Pressure Location Lt brachial Lt brachial Position Sitting Sitting Pulse 57 Pulse Source Pulse Oximeter Pulse Oximetry (%) 100 Oxygen Delivery Method Room Air Intake Visit Reasons: 6 month follow up Intake Note: Nery presents in the office as a 6 month follow up CC: Patient reports feeling great. Denies having any GI issues today. Dehydrogenation Operator Required: No Accompanied by: Self / Same As Patient Allergies No Known Allergies Allergy (Verified 03/01/24 09:45) HPI HPI 6 month follow up: Details: 33 yr old m here for f/u for alcoholic cirrhosis RECAP: I had seen him as an in patient 10/2021 Patient had not been feeling well for few days prior to admission He noted worsening jaundice few weeks ago with poor appetite and malaise as well as abdominal distention and ankle swelling. He drinks hard liquor daily for years, and last drank yesterday. Remote use of cocaine and heroin in past. strong FH of alcoholism. he denies abdominal pain, but has slight discomfort, no nausea, no vomiting no melena or rectal bleeding. Does admit to poor memory recently but better today after fluids and hydration. No fevers or chills, never had liver problems before. No SOB, cough or sputum. Friends are mostly alcoholics as well, started drinking from age of 18. He was d/c'ed on pred and had been alcohol abstinent, LFT had been improving I had increased aldactone and lasix due to worsening Imaging: CT with nodular liver, ascites, varices noted, splenomegaly. doppler done for DVT--neg US 07/07-- steatosis, increased elastography Labs: raised LFT--coming down with alcohol abstinence, HGb improving EGD 01/06- PHG small varix INTERIM: he started his new job remains alcohol free no abdominal pain no nausea or vomiting no melena, no rectal bleeding no leg swelling still taking vit A supplement EXAM: GENERAL: The patient is healthy appearing , VITAL SIGNS:see workflow HEENT: nonicteric sclerae, PERRLA, EOMI. Oropharynx clear. Moist mucous membranes. Conjunctivae appear well perfused. No thyroid mass. CHEST: Chest wall is nontender. HEART: Regular rate and rhythm without murmurs. LUNGS: Clear to auscultation bilaterally. ABDOMEN: Soft, positive bowel sounds, nontender, no organomegaly.no flank tenderness SKIN: No rash, no excessive bruising, petechiae, or purpura. NEUROLOGIC: Cranial nerves II-XII intact without motor/sensory deficit. No flapping tremor LEGS: varicose veins, A/P: 1/ Alcoholic hepatitis--resolved 2/ severe leg edema 2/2 to cirrhosis--resolved 3/ nutritional defcn--improving 4/ gallstones, asymptomatic PLAN: 1/ cont with nadolol and omeprazole for the moment but will cut down to 20 mg omeprazole 2/ lo salt intake <2 g-- cont to monitor BP at home, if repeatedly >130/80-will treat, will call back in a week with readings 3/ repeat US imaging q 6 months 4/ recheck labs today 5/ cont with vit supplements as prescribed, 6/ repeat EGD 1-2 yr [facility] Medical History Alcoholic hepatitis Surgical History History of esophagogastroduodenoscopy (EGD) Hx of wisdom tooth extraction Family History Father Diabetes HTN (hypertension) Social History Household Members: None Housing: Apartment Do you presently have visiting nurse or other home services: No Alcohol intake: current Alcohol intake frequency: former alcohol drinker Alcohol type: hard liquor Comment: pt refuses alarm Patient Tobacco Use Status: Current someday Tobacco user Tobacco use type: Cigarette Cigarettes Per Day: 3 Years Smoked: 5 Substance Use Type: Marijuana service: No Current occupational status: unemployed Physical Exam Vital Signs: Last Vital Signs Pulse 57 03/01/24 09:42 BP 152/84 H 03/01/24 09:42 Pulse Ox 100 03/01/24 09:42 Oxygen Delivery Method Room Air 03/01/24 09:42 BMI result Body Mass Index 30.2 Assessment & Plan Assessment & Plan (1) Acute alcoholic liver disease: Code(s): K70.10 - Alcoholic hepatitis without ascites Category: Medical Plan: see above (2) Ascites due to alcoholic cirrhosis: Code(s): K70.31 - Alcoholic cirrhosis of liver with ascites Category: Medical Plan: see above Orders: Orders Complete Blood Count Auto Diff Today K70.10 - Alcoholic hepatitis without ascites, K70.31 - Alcoholic cirrhosis of liver with ascites Prothrombin Time INR Today K70.10 - Alcoholic hepatitis without ascites, K70.31 - Alcoholic cirrhosis of liver with ascites Vitamin B12 and Folate Today K70.10 - Alcoholic hepatitis without ascites, K70.31 - Alcoholic cirrhosis of liver with ascites US abdomen francois w elastography 4 Months K74.60 - Unspecified cirrhosis of liver, K75.81 - Nonalcoholic steatohepatitis (FARFAN) Comprehensive Met. Panel Today K70.10 - Alcoholic hepatitis without ascites, K70.31 - Alcoholic cirrhosis of liver with ascites, K75.81 - Nonalcoholic steatohepatitis (FARFAN) Vitamin A Today K70.10 - Alcoholic hepatitis without ascites, K70.31 - Alcoholic cirrhosis of liver with ascites Vitamin D 25-OH Total Today K70.10 - Alcoholic hepatitis without ascites, K70.31 - Alcoholic cirrhosis of liver with ascites Medications: New omeprazole 20 mg PO DAILY 90 caps 2RF Discontinued omeprazole Discontinued Reason: Doctor's Order 40 mg PO DAILY 90 caps 1RF Coding Level of Care Code Est Pt Level 4 (47644) Diagnoses Acute alcoholic liver disease K70.10 Ascites due to alcoholic cirrhosis K70.31
[2024-03-01 10:00] VITALS: BP 148/86
== END 2024-03-01 10:09 | disposition home or self-care (01) ==
PROVIDERS: PCP Internal Medicine; Visit Provider Internal Medicine Gastroenterology
DX: K70.10 Alcoholic hepatitis without ascites (principal); K70.31 Alcoholic cirrhosis of liver with ascites
CPT/HCPCS: 99214

== ENCOUNTER 2024-03-01 09:41 | Outpatient (REF) | payer OTHER, SELFPAY ==
[2024-03-01 10:25] LABS: MANUAL DIFF FLAG NO
[2024-03-01 10:40] LABS: Basophils Percent Auto 0.7 % (0-2); Eosinophils Absolute Auto 0.1 X10*3/uL (0.0-0.4); Eosinophils Percent Auto 2.9 % (0-4); Hematocrit 44.5 % (42.0-52.0); Hemoglobin 15.5 g/dl (14.0-18.0); Imm Gran Abs Auto 0.02 X10*3/uL (0.00-0.03); Imm Gran Pct Auto 0.5 % (0.0-0.4); Lymphocytes Absolute Auto 1.3 X10*3/uL (1.2-4.9); Lymphocytes Percent Auto 31.7 % (20-40); Mean Corpuscular HGB Conc 34.8 g/dl (31.0-36.0); Mean Corpuscular Hemoglobin 29.7 pg (27.0-33.0); Mean Corpuscular Volume 85.2 fL (80.0-98.0); Mean Platelet Volume 9.7 fL (9.4-12.4); Monocytes Absolute Auto 0.2 X10*3/uL (0.1-1.2); Monocytes Percent Auto 5.8 % (2-11); Neutrophils Absolute Auto 2.4 x10*3/uL (2.0-8.3); Neutrophils Percent Auto 58.4 % (45-73); Platelet Count 131 X10*3/uL (160-400); Red Blood Count 5.22 X10*6/uL (4.60-5.80); Red Cell Distribution Width 12.9 % (11.0-16.0); White Blood Count 4.2 X10*3/uL (4.8-10.8)
[2024-03-01 10:52] LABS: Prothrombin Time 12.5 SEC (11.1-13.3)
[2024-03-01 11:18] LABS: Alanine Aminotransferase 17 U/L (0-40); Albumin Level 4.4 g/dL (3.5-5.0); Alkaline Phosphatase 57 U/L (39-117); Anion Gap 9 (12-20); Aspartate Amino Transferase 21 U/L (5-37); Bilirubin Total 2.7 mg/dL (0.0-1.0); Blood Urea Nitrogen 13 mg/dL (9-16); Calcium 9.8 mg/dL (8.4-10.2); Carbon Dioxide 30 mmol/L (22-29); Chloride 105 mmol/L (96-108); Estimated Glomerular Filt Rate > 60; Glucose Random 105 mg/dL (60-115); Potassium 4.7 mmol/L (3.3-5.1); Sodium 139 mmol/L (135-145); Total Protein 7.1 g/dL (6.5-8.0)
[2024-03-01 11:35] LABS: Vitamin D 25-OH Total 34.1 ng/mL (>30)
[2024-03-01 11:46] LABS: Folate 5.7 ng/mL (> or = 4.0); Vitamin B12 599 pg/mL (200-900)
[2024-03-07 20:04] LABS: Vitamin A 41 mcg/dL (38-98)
== END 2024-03-01 09:42 | disposition home or self-care (01) ==
LOC: HO.LAB 09:41
PROVIDERS: PCP Internal Medicine; Visit Provider Internal Medicine Gastroenterology
DX: K70.10 Alcoholic hepatitis without ascites (principal); K70.31 Alcoholic cirrhosis of liver with ascites; K75.81 Nonalcoholic steatohepatitis (NASH)
CPT/HCPCS: 36415; 80053; 82306; 82607; 82746; 84590; 85025; 85610

== ENCOUNTER 2024-07-01 08:12 | Outpatient (REF) | payer OTHER, SELFPAY | END 2024-07-01 08:13 | disposition home or self-care (01) | LOC: HO.US 08:12 | PROVIDERS: PCP Internal Medicine; Visit Provider Internal Medicine Gastroenterology | DX: K75.81 Nonalcoholic steatohepatitis (NASH) (principal); K74.60 Unspecified cirrhosis of liver | CPT/HCPCS: 76705; 76981 ==

== ENCOUNTER → 2024-07-01 08:18 | Outpatient (BNV) | payer OTHER, SELFPAY | PROVIDERS: PCP Internal Medicine; Visit Provider Radiology Diagnostic Radiology | DX: R16.0 Hepatomegaly, not elsewhere classified (principal); K80.00 Calculus of gallbladder with acute cholecystitis without obstruction; N20.0 Calculus of kidney | CPT/HCPCS: 76705 ==

== ENCOUNTER 2024-09-06 08:50 | Outpatient (REF) | payer OTHER, SELFPAY ==
[2024-09-06 09:41] LABS: MANUAL DIFF FLAG NO
--- OUTSIDE RECORDS SUMMARY | 2024-09-06 09:54 | XMS_ITS | Encounter Summary ---
Author Organization [facility] Address [address] [place] [address] Phone Care Team Providers Care Sales Account Director Name Role Phone Luis Monson MD Primary Care Provider [phone] Encounter Details Date Type Department Care Team (Late st Contact Info) Description 05/02/2012 Documentation [facility] [place] Family Medicine [address] [place] [address] Family Medicine, Physician [address] [place] [address] Social History Tobacco Use Types [...] on filedocumented in this encounter Care Teams Sales Account Director Relationship Specialty Start Date End Date Luis Monson MD [address] [place] [address] BRAULIO Ambrocio [address] PCP - General 02/24/17 10/24/22 documented as of this encounter
--- OUTSIDE RECORDS SUMMARY | 2024-09-06 09:54 | XMS_ITS | Encounter Summary ---
Author Organization [facility] Address [address] [place] [address] Phone Care Team Providers Care Resolution Specialist Name Role Phone Luis Monson MD Primary Care Provider [phone] Encounter Details Date Type Department Care Team (Late st Contact Info) Description 05/04/2011 Documentation [facility] [place] [address] [place] [address] Family Medicine, Physician [address] [place] [address] Social History Tobacco Use Types [...] on filedocumented in this encounter Care Teams Resolution Specialist Relationship Specialty Start Date End Date Luis Monson MD [address] [place] [address] BRAULIO Ambrocio [address] PCP - General 02/24/17 10/24/22 documented as of this encounter
--- OUTSIDE RECORDS SUMMARY | 2024-09-06 09:54 | XMS_ITS | Encounter Summary ---
Author Organization [facility] Address [address] [place] [address] Phone Care Team Providers Care Warble Saw Operator Name Role Phone Luis Monson MD Primary Care Provider [phone] Encounter Details Date Type Department Care Team (Late st Contact Info) Description 04/02/2012 Documentation [facility] [place] [address] [place] [address] Family Medicine, Physician [address] [place] [address] Social History Tobacco Use Types [...] on filedocumented in this encounter Care Teams Warble Saw Operator Relationship Specialty Start Date End Date Luis Monson MD [address] [place] [address] BRAULIO Ambrocio [address] PCP - General 02/24/17 10/24/22 documented as of this encounter
--- OUTSIDE RECORDS SUMMARY | 2024-09-06 09:54 | XMS_ITS | Clinical Summary ---
Author Organization [facility] Address [address] [place] [address] Phone Care Team Providers Care Butting Saw Operator Name Role Phone Unavailable Primary Care Provider [...] Hypertension Maternal Grandfather Materna l grandfather: Sudden /[place] under age 55 Mother Alive Mother: Obesity [...]
--- OUTSIDE RECORDS SUMMARY | 2024-09-06 09:54 | XMS_ITS | Encounter Summary ---
Author Organization [facility] Address [address] [place] [address] Phone Care Team Providers Care Mobile Nurse Name Role Phone Luis Monson MD Primary Care Provider [phone] Encounter Details Date Type Department Care Team (Late st Contact Info) Description 05/27/2014 Documentation [facility] [place] Medicine [address] [place] [address] Family Medicine, Physician [address] [place] [address] Social History Tobacco Use [...] on filedocumented in this encounter Care Teams Mobile Nurse Relationship Specialty Start Date End Date Luis Monson MD [address] [place] [address] BRAULIO Ambrocio [address] PCP - General 02/24/17 10/24/22 documented as of this encounter
--- OUTSIDE RECORDS SUMMARY | 2024-09-06 09:54 | XMS_ITS | Encounter Summary ---
Author Organization [facility] Address [address] [place] [address] Phone Care Team Providers Care Hat Body Inspector Name Role Phone Luis Monson MD Primary Care Provider [phone] Encounter Details Date Type Department Care Team (Late st Contact Info) Description 05/13/2013 Documentation [facility] [place] [address] [place] [address] Family Medicine, Physician [address] [place], [place] [id number] Social History Tobacco Use Types Packs/Day Years [...] on filedocumented in this encounter Care Teams Hat Body Inspector Relationship Specialty Start Date End Date Luis Monson MD [address] [place] [address] BRAULIO Ambrocio 78016 PCP - General 02/24/17 10/24/22 documented as of this encounter
--- OUTSIDE RECORDS SUMMARY | 2024-09-06 09:54 | XMS_ITS | Encounter Summary ---
Author Organization [facility] Address [address] [place] [address] Phone Care Team Providers Care Glass Ribbon Machine Operator Name Role Phone Luis Monson MD Primary Care Provider [phone] Encounter Details Date Type Department Care Team (Late st Contact Info) Description 05/02/2012 Documentation [facility] [place] Family Medicine [address] [place] [address] Family Medicine, Physician [address] [place] [address] Social History Tobacco Use Types [...] on filedocumented in this encounter Care Teams Glass Ribbon Machine Operator Relationship Specialty Start Date End Date Luis Monson MD [address] [place] [address] BRAULIO Ambrocio 25992 PCP - General 02/24/17 10/24/22 documented as of this encounter
--- OUTSIDE RECORDS SUMMARY | 2024-09-06 09:54 | XMS_ITS | Encounter Summary ---
Author Organization [facility] Address [address] [place] [address] Phone Care Team Providers Care Psychic Reader Name Role Phone Luis Monson MD Primary Care Provider [phone] Encounter Details Date Type Department Care Team (Late st Contact Info) Description 05/04/2011 Documentation [facility] [place] Family Medicine [address] [place] [address] Family Medicine, Physician [address] [place] [address] Social History Tobacco Use Types [...] on filedocumented in this encounter Care Teams Psychic Reader Relationship Specialty Start Date End Date Luis Monson MD [address] [place] [address] BRAULIO Ambrocio [address] PCP - General 02/24/17 10/24/22 documented as of this encounter
--- OUTSIDE RECORDS SUMMARY | 2024-09-06 09:54 | XMS_ITS | Encounter Summary ---
Author Organization [facility] Address [address] [place] [address] Phone Care Team Providers Care Fabrication Manager Name Role Phone Luis Monson MD Primary Care Provider [phone] Encounter Details Date Type Department Care Team (Late st Contact Info) Description 03/02/2017 Conversion Encounter [facility] [place] [address] [place] [address] Social History Tobacco Use Types Packs/Day Years [...] on filedocumented in this encounter Care Teams Fabrication Manager Relationship Specialty Start Date End Date Luis Monson MD [address] [place] [address] PCP - General 02/24/17 10/24/22 documented as of this encounter
[2024-09-06 09:56] LABS: Basophils Percent Auto 0.4 % (0-2); Eosinophils Absolute Auto 0.1 X10*3/uL (0.0-0.4); Eosinophils Percent Auto 1.7 % (0-4); Hematocrit 46.6 % (42.0-52.0); Hemoglobin 16.2 g/dl (14.0-18.0); Imm Gran Abs Auto 0.01 X10*3/uL (0.00-0.03); Imm Gran Pct Auto 0.2 % (0.0-0.4); Lymphocytes Absolute Auto 1.2 X10*3/uL (1.2-4.9); Lymphocytes Percent Auto 25.3 % (20-40); Mean Corpuscular HGB Conc 34.8 g/dl (31.0-36.0); Mean Corpuscular Hemoglobin 29.8 pg (27.0-33.0); Mean Corpuscular Volume 85.8 fL (80.0-98.0); Mean Platelet Volume 9.6 fL (9.4-12.4); Monocytes Absolute Auto 0.3 X10*3/uL (0.1-1.2); Monocytes Percent Auto 6.8 % (2-11); Neutrophils Percent Auto 65.6 % (45-73); Platelet Count 148 X10*3/uL (160-400); Red Blood Count 5.43 X10*6/uL (4.60-5.80); Red Cell Distribution Width 12.4 % (11.0-16.0); White Blood Count 4.6 X10*3/uL (4.8-10.8)
[2024-09-06 09:59] LABS: Prothrombin Time 12.1 SEC (10.9-12.4)
[2024-09-06 10:50] LABS: Alanine Aminotransferase 26 U/L (0-40); Albumin Level 4.5 g/dL (3.5-5.0); Alkaline Phosphatase 59 U/L (39-117); Anion Gap 10 (12-20); Aspartate Amino Transferase 31 U/L (5-37); Bilirubin Total 3.4 mg/dL (0.0-1.0); Blood Urea Nitrogen 13 mg/dL (9-16); Calcium 9.8 mg/dL (8.4-10.2); Carbon Dioxide 28 mmol/L (22-29); Chloride 104 mmol/L (96-108); Estimated Glomerular Filt Rate > 60; Glucose Random 112 mg/dL (60-115); Potassium 5.1 mmol/L (3.3-5.1); Sodium 137 mmol/L (135-145); Total Protein 7.5 g/dL (6.5-8.0)
[2024-09-06 11:10] LABS: Folate 5.8 ng/mL (> or = 4.0); Vitamin B12 598 pg/mL (200-900)
[2024-09-10 16:33] LABS: Vitamin A 49 mcg/dL (38-98)
[2024-09-12 06:34] LABS: Vitamin B6 11.1 ng/mL (2.1-21.7)
[2024-09-12 12:33] LABS: Nicotinamide <20 ng/mL (see note); Vit B3 - Nicotinic Acid <20 ng/mL (see note); Vitamin B5 (Pantothenic Acid) 44 ng/mL (<275)
[2024-09-12 14:44] LABS: Vitamin B1 7 nmol/L (8-30)
== END 2024-09-06 08:51 | disposition home or self-care (01) ==
LOC: HO.LAB 08:50
PROVIDERS: PCP Internal Medicine; Visit Provider Internal Medicine Gastroenterology
DX: K70.31 Alcoholic cirrhosis of liver with ascites (principal); K75.81 Nonalcoholic steatohepatitis (NASH)
CPT/HCPCS: 36415; 80053; 82607; 82746; 84207; 84425; 84590; 84591; 85025; 85610

== ENCOUNTER 2024-09-06 08:50 | Outpatient (AMB) | payer OTHER, SELFPAY ==
--- NOTE | 2024-09-06 08:52 | A.OFFVIS_ITS ---
Vital Signs 09/06/24 08:55 Height 6 ft Weight 224 lb 13.944 oz BMI 30.5 BP 164/83 H Blood Pressure Location Lt brachial Position Sitting Pulse 45 L Intake Visit Reasons: 6 month follow up Intake Note: Nery presents in the office as a 6 month follow up. CC: States that he is feeling great! Stuffed Casing Tier Required: No Allergies No Known Allergies Allergy (Verified 09/06/24 08:55) HPI HPI 6 month follow up: Details: 34 yr old m here for f/u for alcoholic cirrhosis RECAP: I had seen him as an in patient 10/2021 Patient had not been feeling well for few days prior to admission He noted worsening jaundice few weeks ago with poor appetite and malaise as well as abdominal distention and ankle swelling. He drinks hard liquor daily for years, and last drank yesterday. Remote use of cocaine and heroin in past. strong FH of alcoholism. he denies abdominal pain, but has slight discomfort, no nausea, no vomiting no melena or rectal bleeding. Does admit to poor memory recently but better today after fluids and hydration. No fevers or chills, never had liver problems before. No SOB, cough or sputum. Friends are mostly alcoholics as well, started drinking from age of 18. He was d/c'ed on pred and had been alcohol abstinent, LFT had been improving I had increased aldactone and lasix due to worsening Imaging: CT with nodular liver, ascites, varices noted, splenomegaly. doppler done for DVT--neg US 07/07-- steatosis, increased elastography Labs: raised LFT--coming down with alcohol abstinence, HGb improving EGD 01/06- PHG small varix INTERIM: he is enjoying his new job no nausea or vomiting no melena, no rectal bleeding no leg swelling remains alcohol free no abdominal pain BP has been variable EXAM: GENERAL: The patient is healthy appearing , VITAL SIGNS:see workflow HEENT: nonicteric sclerae, PERRLA, EOMI. Oropharynx clear. Moist mucous membranes. Conjunctivae appear well perfused. No thyroid mass. CHEST: Chest wall is nontender. HEART: Regular rate and rhythm without murmurs. LUNGS: Clear to auscultation bilaterally. ABDOMEN: Soft, positive bowel sounds, nontender, no organomegaly.no flank tenderness SKIN: No rash, no excessive bruising, petechiae, or purpura. NEUROLOGIC: Cranial nerves II-XII intact without motor/sensory deficit. No flapping tremor LEGS: varicose veins, A/P: 1/ Alcoholic hepatitis--resolved 2/ severe leg edema 2/2 to cirrhosis--resolved 3/ nutritional defcn--improved 4/ gallstones, asymptomatic PLAN: 1/ cont with nadolol and omeprazole 2/ lo salt intake <2 g-- advised to check BP at rest and call me with results 3/ repeat US imaging q 6 months 4/ recheck labs today 5/ cont with vit supplements as prescribed, 6/ repeat EGD 1-2 yr [facility] Medical History Alcoholic hepatitis Surgical History History of esophagogastroduodenoscopy (EGD) Hx of wisdom tooth extraction Family History Father Diabetes HTN (hypertension) Social History Household Members: None Housing: Apartment Do you presently have visiting nurse or other home services: No Alcohol intake: current Alcohol intake frequency: former alcohol drinker Alcohol type: hard liquor Comment: pt refuses alarm Patient Tobacco Use Status: Current someday Tobacco user Tobacco use type: Cigarette Cigarettes Per Day: 3 Years Smoked: 5 Substance Use Type: Marijuana service: No Current occupational status: unemployed Physical Exam Vital Signs: Last Vital Signs Pulse 45 L 09/06/24 08:55 BP 164/83 H 09/06/24 08:55 BMI result Body Mass Index 30.5 Assessment & Plan Assessment & Plan (1) Ascites due to alcoholic cirrhosis: Code(s): K70.31 - Alcoholic cirrhosis of liver with ascites Category: Medical Plan: as above Orders: Orders Comprehensive Met. Panel Today K70.31 - Alcoholic cirrhosis of liver with ascites, K75.81 - Nonalcoholic steatohepatitis (FARFAN) Vitamin B3 (Niacin) Today K70.31 - Alcoholic cirrhosis of liver with ascites Vitamin B6 Today K70.31 - Alcoholic cirrhosis of liver with ascites Prothrombin Time INR Today K70.31 - Alcoholic cirrhosis of liver with ascites US abdomen francois w elastography 6 Months K70.31 - Alcoholic cirrhosis of liver with ascites, K74.60 - Unspecified cirrhosis of liver, K75.81 - Nonalcoholic steatohepatitis (FARFAN) Complete Blood Count Auto Diff Today K70.31 - Alcoholic cirrhosis of liver with ascites Vitamin B1 Today K70.31 - Alcoholic cirrhosis of liver with ascites Vitamin B12 and Folate Today K70.31 - Alcoholic cirrhosis of liver with ascites Vitamin B5 (Pantothenic Acid) Today K70.31 - Alcoholic cirrhosis of liver with ascites Vitamin A Today K70.31 - Alcoholic cirrhosis of liver with ascites Medications: Refilled thiamine HCl (vitamin B1) 100 mg PO TID 90 tabs 3RF Coding Level of Care Code Est Pt Level 4 (01223) Diagnoses Ascites due to alcoholic cirrhosis K70.31
[2024-09-06 08:55] VITALS: BP 164/83; PULSE 45; BMI 30.5
--- OUTSIDE RECORDS SUMMARY | 2024-09-06 09:12 | XMS_ITS | Clinical Summary ---
Author Organization [facility] Address [address] [place] [id number] Phone Care Team Providers Care Consumer Services Advisor Name Role Phone Unavailable Primary Care Provider Unavailabl e Immunizations Immunization Administration Dates Next Due DTP 02/28/1994, 3,1992,10/29 DTaP 5 12/17/1997 H1N1 10/07/2009 Hep A, ped/adol 01/04/2011 Hep B, ped/adol 05/31/1993,1992,1992 Hib (HbOC) 11/28/1993, 3,1992,10/29 IPV 12/17/1997, 4,1992,10/29 Influenza Split 05/01/2012,05/03/2011,06/14/2010 Influenza, injectable, trivalent 05/09/2013,05/17 MMR 12/17/1997,11/28/1993 Meningococcal Conj (Menactra) MCV4P 05/30/2007 Td (adult) (MBL), 2 Lf tetan us toxoid, PF, adsorbed 06/04/2003 Tdap 10/07/2009 Varicella 10/07/2009,10/30/1995 Family History Relation Name Status Comments Father Alive Father: Obesity , Hypertension Maternal Grandfather Materna l grandfather: Sudden /VA under age 55 Mother Alive Mother: Obesity , Thyroid disease Other Family history of Diabetes mellitus Social History Tobacco Use Types Packs/Day Years Used Date Smoking Tobacco: Never Assessed Sex and Gender Information Value Date Recorded Sex Assigned at Not on file Legal Sex Male 4:41 PM EDT Gender Identity Not on file Sexual Orientation Not on file Last Filed Vital Signs Vital Sign Reading Time Taken Comments Blood Pressure 122/76 01/04/2011 12:00 AM EDT Pulse - - Temperature 37.3 ??C (99.2 ??F) 05/06/2011 12:00 AM E DT Respiratory Rate - - Oxygen Saturation - - Inhaled Oxygen Concentration - - Weight 102 kg (224 lb) 05/06/2011 12:00 AM EDT Height 178.6 cm (5' 10.3 ) 05/06/2011 12:00 AM E DT Body Mass Index 31.87 05/06/2011 12:00 AM EDT Plan of Treatment Health Maintenance Due Date Last Done Comments Hepatitis A Vaccines (2 of 2 - 2-dose series) 07/06/2011 01/04/2011 DTaP,Tdap,and Td Vaccines (7 - Td or Tdap) 10/08/2019 10/07/2009, 06/04/2003, 12/17/1997, Additional history exists Influenza Vaccines (#1) 2024 05/09/20 13, 05/01/2012, 05/03/2011, Additional history exists COVID-19 Vaccine ( season) 2024 Hepatitis B Vaccines Completed 05/31/1993, 1992, 1992 HIB Vaccines Completed 11/28/1993, 01/14, 1992, Additional history exists IPV Vaccines Completed 12/17/1997, 02/14, 1992, Additional history exists MMR Vaccines Completed 12/17/1997, 11/28/1993 Meningococcal Vaccine Aged Out 05/30/2007 No elisa renaldo eligible based on patient's age to complete this topic Varicella Vaccines Completed 10/07/2009, 10/30/1995 HPV Vaccines Aged Out No longer eligi ble based on patient's age to complete this topic Men B Vaccine Aged Out No longer elig ible based on patient's age to complete this topic Pneumococcal Vaccine Aged Out No long er eligible based on patient's age to complete this topic
--- OUTSIDE RECORDS SUMMARY | 2024-09-06 09:12 | XMS_ITS | Encounter Summary ---
Author Organization [facility] Address [address] [place] [id number] Phone Care Team Providers Care Quill Buncher And Sorter Name Role Phone Luis Monson MD Primary Care Provider [phone] Encounter Details Date Type Department Care Team (Late st Contact Info) Description 05/27/2014 Documentation [facility] – [place] Family Medicine [address] [place] [address] Family Medicine, Physician [address] [place] [address] Social History Tobacco Use Types Packs/Day Years Used Date Smoking Tobacco: Never Assessed Sex and Gender Information Value Date Recorded Sex Assigned at Not on file Legal Sex Male 4:41 PM EDT Gender Identity Not on file Sexual Orientation Not on file documented as of this encounter Plan of Treatment Not on file documented as of this encounter Visit Diagnoses Not on filedocumented in this encounter Care Teams Quill Buncher And Sorter Relationship Specialty Start Date End Date Luis Monson MD [address] [place] [address] [place] [id number] PCP - General 02/24/17 10/24/22 documented as of this encounter
--- OUTSIDE RECORDS SUMMARY | 2024-09-06 09:12 | XMS_ITS | Encounter Summary ---
Author Organization [facility] Address [address] [place] [phone] Phone Care Team Providers Care Integration Solution Architect Name Role Phone Luis Monson MD Primary Care Provider [phone] Encounter Details Date Type Department Care Team (Late st Contact Info) Description 03/02/2017 Conversion Encounter [facility] [place] [address] [place] [address] Social History Tobacco Use Types Packs/Day Years [...] on filedocumented in this encounter Care Teams Integration Solution Architect Relationship Specialty Start Date End Date Luis Monson MD [address] [place] [address] PCP - General 02/24/17 10/24/22 documented as of this encounter
--- OUTSIDE RECORDS SUMMARY | 2024-09-06 09:12 | XMS_ITS | Encounter Summary ---
Author Organization [facility] Address [address] [place] [address] Phone Care Team Providers Care River Driver Name Role Phone Luis Monson MD Primary Care Provider Encounter Details Date Type Department Care Team (Late st Contact Info) Description 04/02/2012 Documentation [facility] [place] [address] [place] [address] Family Medicine, Physician [address] [place] [address] Social History Tobacco Use Types [...] on filedocumented in this encounter Care Teams River Driver Relationship Specialty Start Date End Date Luis Monson MD [address] [place] [address] BRAULIO Ambrocio [address] PCP - General 02/24/17 10/24/22 documented as of this encounter
--- OUTSIDE RECORDS SUMMARY | 2024-09-06 09:12 | XMS_ITS | Encounter Summary ---
Author Organization [facility] Address [address] [place] [address] Phone Care Team Providers Care Lpn Home Health Name Role Phone Luis Monson MD Primary Care Provider Encounter Details Date Type Department Care Team (Late st Contact Info) Description 05/02/2012 Documentation [facility] [place] [address] [place] [address] Family Medicine, Physician [address] [place] [address] Social History Tobacco Use Types [...] on filedocumented in this encounter Care Teams Lpn Home Health Relationship Specialty Start Date End Date Luis Monson MD [address] [place] [address] BRAULIO Ambrocio [address] PCP - General 02/24/17 10/24/22 documented as of this encounter
--- OUTSIDE RECORDS SUMMARY | 2024-09-06 09:12 | XMS_ITS | Encounter Summary ---
Author Organization [facility] Address [address] [place] [address] Phone Care Team Providers Care Photo Checker And Assembler Name Role Phone uLis Monson MD Primary Care Provider [phone] Encounter Details Date Type Department Care Team (Late st Contact Info) Description 05/04/2011 Documentation [facility] [place] Medicine [address] [place] [address] Family Medicine, Physician [address] [place] [address] Social History Tobacco Use Types [...] on filedocumented in this encounter Care Teams Photo Checker And Assembler Relationship Specialty Start Date End Date Luis Monson MD [address] [place] [address] BRAULIO Ambrocio [address]35 PCP - General 02/24/17 10/24/22 documented as of this encounter
--- OUTSIDE RECORDS SUMMARY | 2024-09-06 09:12 | XMS_ITS | Encounter Summary ---
Author Organization [facility] Address [address] [place] [address] Phone Care Team Providers Care C Developer Name Role Phone Luis Monson MD Primary Care Provider [phone] Encounter Details Date Type Department Care Team (Late st Contact Info) Description 05/04/2011 Documentation [facility] [place] Medicine [address] [place] [address] Family Medicine, Physician [address] [place] [address] Social History Tobacco Use Types [...] on filedocumented in this encounter Care Teams C Developer Relationship Specialty Start Date End Date Luis Monson MD [address] [place] [address] BRAULIO Ambrocio 88623 PCP - General 02/24/17 10/24/22 documented as of this encounter
--- OUTSIDE RECORDS SUMMARY | 2024-09-06 09:12 | XMS_ITS | Encounter Summary ---
Author Organization [facility] Address [address] [place] [address] Phone Care Team Providers Care Facility Practice Specialist Name Role Phone Luis Monson MD Primary Care Provider [phone] Encounter Details Date Type Department Care Team (Late st Contact Info) Description 05/13/2013 Documentation [facility] [place] [address] [place] [address] Family Medicine, Physician [address] [place], [place] [id number] Social History Tobacco Use Types Packs/Day Years [...] on filedocumented in this encounter Care Teams Facility Practice Specialist Relationship Specialty Start Date End Date Luis Monson MD [address] [place] [address] BRAULIO Ambrocio [address] PCP - General 02/24/17 10/24/22 documented as of this encounter
--- OUTSIDE RECORDS SUMMARY | 2024-09-06 09:12 | XMS_ITS | Encounter Summary ---
Author Organization [facility] Address [address] [place] [address] Phone Care Team Providers Care Quality Compliance Coordinator Name Role Phone Luis Monson MD Primary Care Provider [phone] Encounter Details Date Type Department Care Team (Late st Contact Info) Description 05/02/2012 Documentation [facility] [place] [address] [place] [address] Family Medicine, Physician [address] [place] [address] Social History Tobacco Use Types [...] on filedocumented in this encounter Care Teams Quality Compliance Coordinator Relationship Specialty Start Date End Date Luis Monson MD [address] [place] [address] BRAULIO Ambrocio 58924 PCP - General 02/24/17 10/24/22 documented as of this encounter
== END 2024-09-06 09:15 | disposition home or self-care (01) ==
PROVIDERS: PCP Internal Medicine; Visit Provider Internal Medicine Gastroenterology
DX: K70.31 Alcoholic cirrhosis of liver with ascites (principal)
CPT/HCPCS: 99214

== ENCOUNTER 2025-03-07 07:54 | Outpatient (REF) | payer OTHER, SELFPAY ==
--- NOTE | ~2025-03-07 | US_ITS ---
EXAMINATION: US ABDOMEN LIMITED WITH LIVER ELASTOGRAPHY CLINICAL INFORMATION: K75.81 - Nonalcoholic steatohepatitis (FARFAN) COMPARISON: None available. TECHNIQUE: Real-time imaging of the abdominal viscera. Noninvasive ultrasound liver fibrosis assessment is performed using Jadiel ElastPQ point quantification shear wave elastography (pSWE) with a 5 MHz transducer. Multiple elastography samples are obtained. FINDINGS: PANCREAS: The visualized pancreatic head and body are normal in appearance. The remainder of the pancreas is obscured from visualization by the overlying bowel gas. LIVER: The liver is mildly hyperechogenic. There is a lobulated contour of the liver surface. No focal lesion or intrahepatic biliary duct dilatation. The right lobe measures 14 cm in length. The left lobe measures 15 cm in length. Main portal vein is patent with a normal direction of movement continuously for venous waveform. Shear wave elastography provides a median stiffness of 1.4 m/s (reference: normal median stiffness is 0.81 - 1.22 m/s). The IQR/median stiffness to assess sampling precision is 0.07 (reference: optimal IQR/median stiffness is under 0.3). GALLBLADDER: There is no gallbladder wall thickening. There is extensive material in the dependent portion of the gallbladder without posterior acoustic shadowing. COMMON BILE DUCT: Normal in caliber measuring 0.2 cm in diameter. RIGHT KIDNEY: No hydronephrosis. No renal calculi or focal parenchymal lesions. The kidney measures 14 cm in maximum dimension. FREE FLUID: None seen. US/US abdomen francois w elastography IMPRESSION: Fatty liver and/or changes of cirrhosis. There is enlargement of the left hepatic lobe. Elastography: Medial to the velocity measured 1.4 m/s, previously 1.8 m/s. Liver elastography measurements are consistent with a minimal risk for clinically significant liver fibrosis (METAVIR Stage F0-F1). This value is improved since the prior examination. However, the prior study was of poor quality and unreliable. Gallbladder sludge versus polyp. Electronically signed by: Joseph Watkins MD 03/07/2025 11:25 AM EDT
--- OUTSIDE RECORDS SUMMARY | 2025-03-07 07:56 | XMS_ITS | Encounter Summary ---
Author Organization [facility] Address [address] [place] [address] Phone Care Team Providers Care Cuff Knitter Name Role Phone Luis Monson MD Primary Care Provider [phone] Encounter Details Date Type Department Care Team (Late st Contact Info) Description 05/04/2011 Documentation [facility] [place] Family Medicine [address] [place] [address] Family Medicine, Physician [address] [place] [address] Social History Tobacco Use Types [...] on filedocumented in this encounter Care Teams Cuff Knitter Relationship Specialty Start Date End Date Luis Monson MD [address] [place] [address] BRAULIO Ambrocio [address] PCP - General 02/24/17 10/24/22 documented as of this encounter
--- OUTSIDE RECORDS SUMMARY | 2025-03-07 07:56 | XMS_ITS ---
Author Name [facility] Care Team Organization Name Specialty Phone Email Start Date End Da te [facility] Primary Care 05/24/2022 4
== END 2025-03-07 07:55 | disposition home or self-care (01) ==
LOC: HO.US 07:54
PROVIDERS: PCP Internal Medicine; Visit Provider Internal Medicine Gastroenterology
DX: K75.81 Nonalcoholic steatohepatitis (NASH) (principal)
CPT/HCPCS: 76705; 76981

== ENCOUNTER → 2025-03-07 07:56 | Outpatient (BNV) | payer OTHER, SELFPAY | PROVIDERS: PCP Internal Medicine; Visit Provider Radiology Diagnostic Radiology | DX: K75.81 Nonalcoholic steatohepatitis (NASH) (principal) | CPT/HCPCS: 76705 ==

== ENCOUNTER 2025-05-05 14:21 | Outpatient (REF) | payer OTHER, SELFPAY ==
[2025-05-05 15:52] LABS: MANUAL DIFF FLAG NO
[2025-05-05 16:22] LABS: Hematocrit 45.8 % (42.0-52.0); Hemoglobin 15.9 g/dl (14.0-18.0); Imm Gran Abs Auto 0.01 X10*3/uL (0.00-0.03); Imm Gran Pct Auto 0.2 % (0.0-0.4); Lymphocytes Absolute Auto 1.4 X10*3/uL (1.2-4.9); Mean Corpuscular HGB Conc 34.7 g/dl (31.0-36.0); Mean Corpuscular Hemoglobin 29.3 pg (27.0-33.0); Mean Corpuscular Volume 84.3 fL (80.0-98.0); NRBC Abs Auto 0.000 X10*3/uL (0.0-0.012); NRBC Pct Auto 0.0 /100WBC (0.0-0.2); Platelet Count 150 X10*3/uL (160-400); Red Blood Count 5.43 X10*6/uL (4.60-5.80); White Blood Count 4.9 X10*3/uL (4.8-10.8)
[2025-05-05 16:26] LABS: INTERNATIONAL NORM RATIO 1.2 (0.9-1.1); Prothrombin Time 13.4 SEC (10.9-12.4)
[2025-05-05 17:20] LABS: Alanine Aminotransferase 21 U/L (0-40); Albumin Level 5.0 g/dL (3.5-5.0); Alkaline Phosphatase 56 U/L (39-117); Anion Gap 12 (12-20); Aspartate Amino Transferase 24 U/L (5-37); Blood Urea Nitrogen 10 mg/dL (9-16); Calcium 9.4 mg/dL (8.4-10.2); Carbon Dioxide 30 mmol/L (22-29); Chloride 102 mmol/L (96-108); Estimated Glomerular Filt Rate > 60; Potassium 4.6 mmol/L (3.3-5.1); Sodium 139 mmol/L (135-145); Total Protein 7.5 g/dL (6.5-8.0)
[2025-05-05 17:31] LABS: Folate 5.8 ng/mL (> or = 4.0); Vitamin B12 595 pg/mL (200-900)
== END 2025-05-05 14:22 | disposition home or self-care (01) ==
LOC: HO.LAB 14:21
PROVIDERS: PCP Internal Medicine; Visit Provider Internal Medicine Gastroenterology
DX: K70.31 Alcoholic cirrhosis of liver with ascites (principal); K75.81 Nonalcoholic steatohepatitis (NASH)
CPT/HCPCS: 36415; 80053; 82607; 82746; 84425; 85025; 85610

== ENCOUNTER 2025-05-05 14:21 | Outpatient (AMB) | payer OTHER, SELFPAY ==
--- NOTE | 2025-05-05 14:25 | A.OFFVIS_ITS ---
Vital Signs 05/05/25 14:26 Height 6 ft Weight 227 lb 1.218 oz BMI 30.8 BP 188/106 H Blood Pressure Location Lt brachial Position Sitting Pulse 55 Intake Visit Reasons: 6 mo f/u Intake Note: Nery presents in the office as a 6 month follow up. CC: States that he is feeling good and no concerns at this time! Companion Caregiver Required: No Allergies No Known Allergies Allergy (Verified 05/05/25 14:43) HPI HPI 6 mo f/u: Details: 34 yr old m here for f/u for alcoholic cirrhosis RECAP: I had seen him as an in patient 10/2021 Patient had not been feeling well for few days prior to admission He noted worsening jaundice few weeks ago with poor appetite and malaise as well as abdominal distention and ankle swelling. He drinks hard liquor daily for years, and last drank yesterday. Remote use of cocaine and heroin in past. strong FH of alcoholism. he denies abdominal pain, but has slight discomfort, no nausea, no vomiting no melena or rectal bleeding. Does admit to poor memory recently but better today after fluids and hydration. No fevers or chills, never had liver problems before. No SOB, cough or sputum. Friends are mostly alcoholics as well, started drinking from age of 18. He was d/c'ed on pred and had been alcohol abstinent, LFT had been improving I had increased aldactone and lasix due to worsening Imaging: CT with nodular liver, ascites, varices noted, splenomegaly. doppler done for DVT--neg US 07/07-- steatosis, increased elastography Labs: raised LFT--coming down with alcohol abstinence, HGb improving EGD 01/06- PHG small varix US 03/10- sludge vs polyp, cirrhosis INTERIM: he is doing well in his new job no nausea or vomiting no melena, no rectal bleeding no leg swelling remains alcohol free no abdominal pain BP has been variable, v high today EXAM: GENERAL: The patient is healthy appearing , VITAL SIGNS:see workflow HEENT: nonicteric sclerae, PERRLA, EOMI. Oropharynx clear. Moist mucous membranes. Conjunctivae appear well perfused. No thyroid mass. CHEST: Chest wall is nontender. HEART: Regular rate and rhythm without murmurs. LUNGS: Clear to auscultation bilaterally. ABDOMEN: Soft, positive bowel sounds, nontender, no organomegaly.no flank tenderness SKIN: No rash, no excessive bruising, petechiae, or purpura. NEUROLOGIC: Cranial nerves II-XII intact without motor/sensory deficit. No flapping tremor LEGS: varicose veins, A/P: 1/ Alcoholic hepatitis--resolved 2/ severe leg edema 2/2 to cirrhosis--resolved 3/ nutritional defcn--improved 4/ gallstones, asymptomatic 5/ HTN PLAN: 1/ cont with nadolol and omeprazole 2/ lo salt intake <2 g-- rechekc BP if still high then start low dose SLOAN-i 3/ repeat US imaging q 6 months 4/ recheck labs today 5/ cont with vit supplements as prescribed, 6/ repeat EGD 1-2 yr [facility] Medical History Alcoholic hepatitis Surgical History History of esophagogastroduodenoscopy (EGD) Hx of wisdom tooth extraction Family History Father Diabetes HTN (hypertension) Social History Household Members: None Housing: Apartment Do you presently have visiting nurse or other home services: No Alcohol intake: current Alcohol intake frequency: former alcohol drinker Alcohol type: hard liquor Comment: pt refuses alarm Patient Tobacco Use Status: Current someday Tobacco user Tobacco use type: Cigarette Cigarettes Per Day: 3 Years Smoked: 5 Substance Use Type: Marijuana service: No Current occupational status: unemployed Physical Exam Vital Signs: Last Vital Signs Pulse 55 05/05/25 14:26 BP 188/106 H 05/05/25 14:26 BMI result Body Mass Index 30.8 Assessment & Plan Assessment & Plan (1) Acute alcoholic liver disease: Code(s): K70.10 - Alcoholic hepatitis without ascites Category: Medical Plan: as above (2) Ascites due to alcoholic cirrhosis: Code(s): K70.31 - Alcoholic cirrhosis of liver with ascites Category: Medical Plan: as above Orders: Orders Comprehensive Met. Panel Today K70.10 - Alcoholic hepatitis without ascites, K70.31 - Alcoholic cirrhosis of liver with ascites, K75.81 - Nonalcoholic steatohepatitis (FARFAN) Complete Blood Count Auto Diff Today K70.10 - Alcoholic hepatitis without ascites, K70.31 - Alcoholic cirrhosis of liver with ascites Prothrombin Time INR Today K70.10 - Alcoholic hepatitis without ascites, K70.31 - Alcoholic cirrhosis of liver with ascites Vitamin B1 Today K70.10 - Alcoholic hepatitis without ascites, K70.31 - Alcoholic cirrhosis of liver with ascites Vitamin B12 and Folate Today K70.10 - Alcoholic hepatitis without ascites, K70.31 - Alcoholic cirrhosis of liver with ascites Coding Level of Care Code Est Pt Level 4 (68053) Diagnoses Acute alcoholic liver disease K70.10 Ascites due to alcoholic cirrhosis K70.31
[2025-05-05 14:26] VITALS: BP 188/106; PULSE 55; BMI 30.8
--- OUTSIDE RECORDS SUMMARY | 2025-05-05 18:09 | XMS_ITS | Encounter Summary ---
Author Organization [facility] Address [address] [place] [address] Phone Care Team Providers Care Room Service Attendant Name Role Phone Luis Monson MD Primary Care Provider [phone] Encounter Details Date Type Department Care Team (Late st Contact Info) Description 05/27/2014 Documentation [facility] [place] Family Medicine [address] [place] [address] Family Medicine, Physician [address] [place] [address] Social History Tobacco Use Types [...] on filedocumented in this encounter Care Teams Room Service Attendant Relationship Specialty Start Date End Date Luis Monson MD [address] [place] [address] BRAULIO Ambrocio [address] PCP - General 02/24/17 10/24/22 documented as of this encounter
--- OUTSIDE RECORDS SUMMARY | 2025-05-05 18:09 | XMS_ITS | Encounter Summary ---
Author Organization [facility] Address [address] [place] [address] Phone Care Team Providers Care Adjunct Professor Of Law Name Role Phone Luis Monson MD Primary Care Provider Encounter Details Date Type Department Care Team (Late st Contact Info) Description 05/02/2012 Documentation [facility] [place] Family Medicine [address] [place] [address] Family Medicine, Physician [address] [place] [address] Social History Tobacco Use Types [...] on filedocumented in this encounter Care Teams Adjunct Professor Of Law Relationship Specialty Start Date End Date Luis Monson MD [address] [place] [address] BRAULIO Ambrocio 47[address] PCP - General 02/24/17 10/24/22 documented as of this encounter
--- OUTSIDE RECORDS SUMMARY | 2025-05-05 18:09 | XMS_ITS | Encounter Summary ---
Author Organization [facility] Address [address] [place] [address] Phone Care Team Providers Care Oncology Rn Name Role Phone Luis Monson MD Primary Care Provider [phone] Encounter Details Date Type Department Care Team (Late st Contact Info) Description 05/04/2011 Documentation [facility] [place] Family Medicine [address] [place] [address] Family Medicine, Physician [address] [place] [address] Social History Tobacco Use Types [...] on filedocumented in this encounter Care Teams Oncology Rn Relationship Specialty Start Date End Date Luis Monson MD [address] [place] [address] BRAULIO Ambrocio [address]803 PCP - General 02/24/17 10/24/22 documented as of this encounter
--- OUTSIDE RECORDS SUMMARY | 2025-05-05 18:09 | XMS_ITS | Encounter Summary ---
Author Organization [facility] Address [address] [place] [address] Phone Care Team Providers Care Dehydrator Name Role Phone Luis Monson MD Primary Care Provider [phone] Encounter Details Date Type Department Care Team (Late st Contact Info) Description 05/04/2011 Documentation [facility] [place] Family Medicine [address] [place] [address] Family Medicine, Physician [address] [place] [address] Social History Tobacco Use Types [...] on filedocumented in this encounter Care Teams Dehydrator Relationship Specialty Start Date End Date Luis Monson MD [address] [place] [address] BRAULIO Ambrocio 34839 PCP - General 02/24/17 10/24/22 documented as of this encounter
--- OUTSIDE RECORDS SUMMARY | 2025-05-05 18:09 | XMS_ITS | Encounter Summary ---
Author Organization [facility] Address [address] [place] [address] Phone Care Team Providers Care Child Caregiver Name Role Phone Luis Monson MD Primary Care Provider Encounter Details Date Type Department Care Team (Late st Contact Info) Description 03/02/2017 Conversion Encounter [facility] [place] [address] [place] [address] Social History Tobacco Use Types Packs/Day Years [...] on filedocumented in this encounter Care Teams Child Caregiver Relationship Specialty Start Date End Date Luis Monson MD [address] [place] [address] PCP - General 02/24/17 10/24/22 documented as of this encounter
--- OUTSIDE RECORDS SUMMARY | 2025-05-05 18:09 | XMS_ITS | Encounter Summary ---
Author Organization [facility] Address [address] [place] [address] Phone Care Team Providers Care Certified Coder Name Role Phone Luis Monson MD Primary Care Provider [phone] Encounter Details Date Type Department Care Team (Late st Contact Info) Description 04/02/2012 Documentation [facility] [place] Family Medicine [address] [place] [address] Family Medicine, Physician [address] [place] [address] Social History Tobacco Use Types [...] on filedocumented in this encounter Care Teams Certified Coder Relationship Specialty Start Date End Date Luis Monson MD [address] [place] [address] BRAULIO Ambrocio [address] PCP - General 02/24/17 10/24/22 documented as of this encounter
--- OUTSIDE RECORDS SUMMARY | 2025-05-05 18:09 | XMS_ITS | Encounter Summary ---
Author Organization [facility] Address [address] [place] [address] Phone Care Team Providers Care Psychologist Experimental Name Role Phone Luis Monson MD Primary Care Provider [phone] Encounter Details Date Type Department Care Team (Late st Contact Info) Description 05/02/2012 Documentation [facility] [place] [address] [place] [address] Family Medicine, Physician [address] [place] [address] Social History Tobacco Use Types [...] on filedocumented in this encounter Care Teams Psychologist Experimental Relationship Specialty Start Date End Date Luis Monson MD [address] [place] [address] BRAULIO Ambrocio [address] PCP - General 02/24/17 10/24/22 documented as of this encounter
--- OUTSIDE RECORDS SUMMARY | 2025-05-05 18:09 | XMS_ITS | Clinical Summary ---
Author Organization [facility] Address [address] [place] [address] Phone Care Team Providers Care Musical String Maker Name Role Phone Unavailable Primary Care Provider [...] Hypertension Maternal Grandfather Materna l grandfather: Sudden /SD under age 55 Mother Alive Mother: Obesity [...] AM EDT Pulse - - Temperature 37.3 C (99.2 F) 05/06/2011 12:00 AM EDT Respiratory Rate - - Oxygen Saturation - - Inhaled Oxygen Concentration - - Weight 102 kg (224 lb) 05/06/2011 12:00 AM EDT Height 178.6 cm (5' 10.3 ) 05/06/2011 12:00 AM E DT Body Mass Index 31.87 05/06/2011 12:00 AM EDT Plan of Treatment Health Maintenance Due Date Last Done Comments Hepatitis A Vaccines (2 of 2 - 2-dose series) 07/06/2011 01/04/2011 HPV Vaccines (1 - 3-dose SCDM series) 2019 DTaP,Tdap,and Td Vaccines (7 - Td or Tdap) 10/08/2019 10/07/2009, 06/04/2003, 12/17/1997, Additional history exists Influenza Vaccines (#1) 2025 05/09/20 13, 05/01/2012, 05/03/2011, Additional history exists COVID-19 Vaccine (2024- season) 2025 Hepatitis B Vaccines Completed 05/31/1993, 1992, 1992 HIB Vaccines Completed 11/28/1993, 01/14, 1992, Additional history exists IPV Vaccines Completed 12/17/1997, 02/14, 1992, Additional history exists MMR Vaccines Completed 12/17/1997, 11/28/1993 Meningococcal Vaccine Aged Out 05/30/2007 No elisa renaldo eligible based on patient's age to complete this topic Varicella Vaccines Completed 10/07/2009, 10/30/1995 Men B Vaccine Aged Out No longer elig ible based on patient's age to complete this topic Pneumococcal Vaccine Aged Out No long er eligible based on patient's age to complete this topic
--- OUTSIDE RECORDS SUMMARY | 2025-05-05 18:09 | XMS_ITS | Encounter Summary ---
Author Organization [facility] Address [address] [place] [address] Phone Care Team Providers Care Translator Interpreter Name Role Phone Luis Monson MD Primary Care Provider [phone] Encounter Details Date Type Department Care Team (Late st Contact Info) Description 05/13/2013 Documentation [facility] [place] [address] [place] [address] Family Medicine, Physician [address] [place], [place] [id number] Social History Tobacco Use Types Packs/Day Years [...] on filedocumented in this encounter Care Teams Translator Interpreter Relationship Specialty Start Date End Date Luis Monson MD [address] [place] [address] BRAULIO Ambrocio [address] PCP - General 02/24/17 10/24/22 documented as of this encounter
== END 2025-05-05 15:33 | disposition home or self-care (01) ==
LOC: HO.HGI 14:22
PROVIDERS: PCP Internal Medicine; Visit Provider Internal Medicine Gastroenterology
DX: K70.10 Alcoholic hepatitis without ascites (principal); K70.31 Alcoholic cirrhosis of liver with ascites
CPT/HCPCS: 99214

== ENCOUNTER 2025-05-28 07:35 | Outpatient (REF) | payer OTHER, SELFPAY ==
--- OUTSIDE RECORDS SUMMARY | 2025-05-28 07:38 | XMS_ITS | Encounter Summary ---
Author Organization [facility] Address [address] [place] [address] Phone Care Team Providers Care Rubber Compounder Formulator Name Role Phone Luis Monson MD Primary Care Provider [phone] Encounter Details Date Type Department Care Team (Late st Contact Info) Description 05/27/2014 Documentation [facility] [place] [address] [place] [address] Family Medicine, Physician [address] [place] [address] Social History Tobacco Use Types [...] on filedocumented in this encounter Care Teams Rubber Compounder Formulator Relationship Specialty Start Date End Date Luis Monson MD [address] [place] [address] BRAULIO Ambrocio [address] PCP - General 02/24/17 10/24/22 documented as of this encounter
--- OUTSIDE RECORDS SUMMARY | 2025-05-28 07:38 | XMS_ITS | Encounter Summary ---
Author Organization [facility] Address [address] [place] [address] Phone Care Team Providers Care Steward/Stewardess Wine Name Role Phone Luis Monson MD Primary Care Provider [phone] Encounter Details Date Type Department Care Team (Late st Contact Info) Description 03/02/2017 Conversion Encounter [facility] [place] [address] [place] [address] Social History Tobacco Use Types Packs/Day Years [...] on filedocumented in this encounter Care Teams Steward/Stewardess Wine Relationship Specialty Start Date End Date Luis Monson MD [address] [place] [address] PCP - General 02/24/17 10/24/22 documented as of this encounter
--- OUTSIDE RECORDS SUMMARY | 2025-05-28 07:38 | XMS_ITS | Encounter Summary ---
Author Organization [facility] Address [address] [place] [address] Phone Care Team Providers Care Slitter And Cutter Operator Name Role Phone Luis Monson MD Primary Care Provider [phone] Encounter Details Date Type Department Care Team (Late st Contact Info) Description 05/04/2011 Documentation [facility] [place] Family Medicine [address] [place] [address] Family Medicine, Physician [address] [place] [address] Social History Tobacco Use Types [...] on filedocumented in this encounter Care Teams Slitter And Cutter Operator Relationship Specialty Start Date End Date Luis Monson MD [address] [place] [address] BRAULIO Ambrocio [address] PCP - General 02/24/17 10/24/22 documented as of this encounter
--- OUTSIDE RECORDS SUMMARY | 2025-05-28 07:38 | XMS_ITS | Encounter Summary ---
Author Organization [facility] Address [address] [place] [address] Phone Care Team Providers Care Instructional Materials Director Name Role Phone Luis Monson MD Primary Care Provider [phone] Encounter Details Date Type Department Care Team (Late st Contact Info) Description 04/02/2012 Documentation [facility] [place] Family Medicine [address] [place] [address] Family Medicine, Physician [address] [place] [address] Social History Tobacco Use Types [...] on filedocumented in this encounter Care Teams Instructional Materials Director Relationship Specialty Start Date End Date Luis Monson MD [address] [place] [address] BRAULIO Ambrocio [address] PCP - General 02/24/17 10/24/22 documented as of this encounter
--- OUTSIDE RECORDS SUMMARY | 2025-05-28 07:38 | XMS_ITS | Clinical Summary ---
Author Organization [facility] Address [address] [place] [address] Phone Care Team Providers Care Dry Curer Name Role Phone Unavailable Primary Care Provider [...] Hypertension Maternal Grandfather Materna l grandfather: Sudden /MS under age 55 Mother Alive Mother: Obesity [...]
--- OUTSIDE RECORDS SUMMARY | 2025-05-28 07:38 | XMS_ITS | Encounter Summary ---
Author Organization [facility] Address [address] [place] [address] Phone Care Team Providers Care Fittings Finisher Name Role Phone Luis Monson MD Primary Care Provider [phone] Encounter Details Date Type Department Care Team (Late st Contact Info) Description 05/02/2012 Documentation [facility] [place] [address] [place] [address] Family Medicine, Physician [address] [place] [address] Social History Tobacco Use Types [...] on filedocumented in this encounter Care Teams Fittings Finisher Relationship Specialty Start Date End Date Luis Monson MD [address] [place] [address] BRAULIO Ambrocio [address] PCP - General 02/24/17 10/24/22 documented as of this encounter
--- OUTSIDE RECORDS SUMMARY | 2025-05-28 07:38 | XMS_ITS | Encounter Summary ---
Author Organization [facility] Address [address] [place] [address] Phone Care Team Providers Care Electronics System Mechanic Name Role Phone Luis Monson MD Primary Care Provider Encounter Details Date Type Department Care Team (Late st Contact Info) Description 05/04/2011 Documentation [facility] [place] [address] [place] [address] Family Medicine, Physician [address] [place] [address] Social History Tobacco Use Types [...] on filedocumented in this encounter Care Teams Electronics System Mechanic Relationship Specialty Start Date End Date Luis Monson MD [address] [place] [address] BRAULIO Ambrocio [address] PCP - General 02/24/17 10/24/22 documented as of this encounter
--- OUTSIDE RECORDS SUMMARY | 2025-05-28 07:38 | XMS_ITS | Encounter Summary ---
Author Organization [facility] Address [address] [place] [address] Phone Care Team Providers Care Production Support Developer Name Role Phone Luis Monson MD Primary Care Provider [phone] Encounter Details Date Type Department Care Team (Late st Contact Info) Description 05/13/2013 Documentation [facility] [place] [address] [place] [address] Family Medicine, Physician [address] [place], [place] [id number] Social History Tobacco Use Types Packs/Day Years [...] on filedocumented in this encounter Care Teams Production Support Developer Relationship Specialty Start Date End Date Luis Monson MD [address] [place] [address] BRAULIO Ambrocio [address] PCP - General 02/24/17 10/24/22 documented as of this encounter
--- OUTSIDE RECORDS SUMMARY | 2025-05-28 07:39 | XMS_ITS | Encounter Summary ---
Author Organization [facility] Address [address] [place] [address] Phone Care Team Providers Care Materials Branch Chief Name Role Phone Luis Monson MD Primary Care Provider [phone] Encounter Details Date Type Department Care Team (Late st Contact Info) Description 05/02/2012 Documentation [facility] [place] Medicine [address] [place] [address] Family Medicine, Physician [address] [place] [address] Social History Tobacco Use Types [...] on filedocumented in this encounter Care Teams Materials Branch Chief Relationship Specialty Start Date End Date Luis Monson MD [address] [place] [address] BRAULIO Ambrocio [address] PCP - General 02/24/17 10/24/22 documented as of this encounter
[2025-05-28 08:27] LABS: Alanine Aminotransferase 21 U/L (0-40); Albumin Level 4.8 g/dL (3.5-5.0); Alkaline Phosphatase 70 U/L (39-117); Anion Gap 10 (12-20); Aspartate Amino Transferase 25 U/L (5-37); Blood Urea Nitrogen 17 mg/dL (9-16); Calcium 9.5 mg/dL (8.4-10.2); Carbon Dioxide 30 mmol/L (22-29); Chloride 103 mmol/L (96-108); Estimated Glomerular Filt Rate > 60; Potassium 4.2 mmol/L (3.3-5.1); Sodium 139 mmol/L (135-145); Total Protein 7.2 g/dL (6.5-8.0)
== END 2025-05-28 07:36 | disposition home or self-care (01) ==
LOC: HO.LAB 07:35
PROVIDERS: PCP Internal Medicine; Visit Provider Internal Medicine Gastroenterology
DX: K75.81 Nonalcoholic steatohepatitis (NASH) (principal)
CPT/HCPCS: 36415; 80053

== ENCOUNTER 2025-05-30 08:05 | Outpatient (AMB) | payer OTHER, SELFPAY ==
--- NOTE | 2025-05-30 08:07 | AM.OFFVISNUR ---
Vital Signs 05/30/25 08:13 Height 6 ft BP 128/74 Blood Pressure Location Lt brachial Position Sitting Pulse 62 Pulse Source Auscultation Intake Visit Reasons: BP Check per Dr. Nielson Intake Note: Est pt, mgmt of GERD + cirrhosis. Provider requested BP check prior to having repeat labs drawn. CC: Pt denies any new concerns or sx at this time. Reports that his BP was 134/82 when he took it earlier this morning while at home. Curing Machine Operator Required: No Accompanied by: Self / Same As Patient Allergies No Known Allergies Allergy (Verified 05/05/25 14:43) Assessment & Plan Assessment & Plan (1) Acute alcoholic liver disease: Code(s): K70.10 - Alcoholic hepatitis without ascites Category: Medical (2) Symptom of leg swelling: Code(s): M79.89 - Other specified soft tissue disorders Category: Medical (3) Anemia: Code(s): D64.9 - Anemia, unspecified Category: Medical Coding Level of Care Code Established Pt Procedure Only Patient Type Established Diagnoses Acute alcoholic liver disease K70.10 Symptom of leg swelling M79.89 Anemia D64.9 Time Spent (min) 10 Comment BP Check requested by . No other concerns addressed during this visit.
[2025-05-30 08:13] VITALS: BP 128/74; PULSE 62
== END 2025-05-30 08:19 | disposition home or self-care (01) ==
LOC: HO.HGI 08:06
PROVIDERS: PCP Internal Medicine; Visit Provider Internal Medicine Gastroenterology
DX: K70.10 Alcoholic hepatitis without ascites (principal); M79.89 Other specified soft tissue disorders; D64.9 Anemia, unspecified

== ENCOUNTER → 2025-05-30 08:05 | Outpatient (BNVA) | payer OTHER, SELFPAY | PROVIDERS: PCP Internal Medicine; Visit Provider Internal Medicine Gastroenterology | DX: K70.10 Alcoholic hepatitis without ascites (principal); M79.89 Other specified soft tissue disorders; D64.9 Anemia, unspecified | CPT/HCPCS: 99211 ==

== ENCOUNTER 2025-06-04 07:56 | Outpatient (REF) | payer OTHER, SELFPAY ==
[2025-06-04 09:13] LABS: Alanine Aminotransferase 19 U/L (0-40); Albumin Level 4.6 g/dL (3.5-5.0); Alkaline Phosphatase 60 U/L (39-117); Anion Gap 9 (12-20); Aspartate Amino Transferase 26 U/L (5-37); Blood Urea Nitrogen 14 mg/dL (9-16); Calcium 9.1 mg/dL (8.4-10.2); Carbon Dioxide 29 mmol/L (22-29); Chloride 104 mmol/L (96-108); Estimated Glomerular Filt Rate > 60; Potassium 4.3 mmol/L (3.3-5.1); Sodium 138 mmol/L (135-145); Total Protein 6.8 g/dL (6.5-8.0)
--- OUTSIDE RECORDS SUMMARY | 2025-06-04 15:28 | XMS_ITS | Encounter Summary ---
Author Organization [facility] Address [address] [place] [address] Phone Care Team Providers Care Education Consultant Name Role Phone Luis Monson MD Primary Care Provider [phone] Encounter Details Date Type Department Care Team (Late st Contact Info) Description 05/04/2011 Documentation [facility] [place] Family [place] [address] [place] [address] Family Medicine, Physician [address] [place] [address] Social History Tobacco Use Types [...] on filedocumented in this encounter Care Teams Education Consultant Relationship Specialty Start Date End Date Luis Monson MD [address] [place] [address] BRAULIO Ambrocio [address] PCP - General 02/24/17 10/24/22 documented as of this encounter
--- OUTSIDE RECORDS SUMMARY | 2025-06-04 15:28 | XMS_ITS | Encounter Summary ---
Author Organization [facility] Address [address] [place] [address] Phone Care Team Providers Care Gis Professor Name Role Phone Luis Monson MD Primary Care Provider [phone] Encounter Details Date Type Department Care Team (Late st Contact Info) Description 03/02/2017 Conversion Encounter [facility] [place] [address] [place] [address] Social History Tobacco Use Types Packs/Day Years [...] on filedocumented in this encounter Care Teams Gis Professor Relationship Specialty Start Date End Date Luis Monson MD [address] [place] [address] PCP - General 02/24/17 10/24/22 documented as of this encounter
--- OUTSIDE RECORDS SUMMARY | 2025-06-04 15:28 | XMS_ITS | Clinical Summary ---
Author Organization [facility] Address [address] [place] [address] Phone Care Team Providers Care Prison Guard Name Role Phone Unavailable Primary Care Provider [...]
--- OUTSIDE RECORDS SUMMARY | 2025-06-04 15:28 | XMS_ITS | Encounter Summary ---
Author Organization [facility] Address [address] [place] [address] Phone Care Team Providers Care Produce Inspector Name Role Phone Luis Monson MD Primary Care Provider [phone] Encounter Details Date Type Department Care Team (Late st Contact Info) Description 05/02/2012 Documentation [facility] [place] [address] [place] [address] Family Medicine, Physician [address] [place] [address] Social History Tobacco Use Types [...] on filedocumented in this encounter Care Teams Produce Inspector Relationship Specialty Start Date End Date Luis Monson MD [address] [place] [address] BRAULIO Ambrocio [address] PCP - General 02/24/17 10/24/22 documented as of this encounter
--- OUTSIDE RECORDS SUMMARY | 2025-06-04 15:28 | XMS_ITS | Encounter Summary ---
Author Organization [facility] Address [address] [place] [address] Phone Care Team Providers Care Hygiene Assistant Name Role Phone Luis Monson MD Primary Care Provider [phone] Encounter Details Date Type Department Care Team (Late st Contact Info) Description 04/02/2012 Documentation [facility] [place] [address] [place] [address] Family Medicine, Physician [address] [place] [address] Social History Tobacco Use Types [...] on filedocumented in this encounter Care Teams Hygiene Assistant Relationship Specialty Start Date End Date Luis Monson MD [address] [place] [address] BRAULIO Ambrocio [address] PCP - General 02/24/17 10/24/22 documented as of this encounter
--- OUTSIDE RECORDS SUMMARY | 2025-06-04 15:28 | XMS_ITS | Encounter Summary ---
Author Organization [facility] Address [address] [place] [address] Phone Care Team Providers Care Human Factors Advisor Lead Name Role Phone Luis Monson MD Primary Care Provider [phone] Encounter Details Date Type Department Care Team (Late st Contact Info) Description 05/13/2013 Documentation [facility] [place] [address] [place] [address] Family Medicine, Physician [address] [place], [place] [id number] Social History Tobacco Use Types Packs/Day Years [...] on filedocumented in this encounter Care Teams Human Factors Advisor Lead Relationship Specialty Start Date End Date Luis Monson MD [address] [place] [address] BRAULIO Ambrocio [address] PCP - General 02/24/17 10/24/22 documented as of this encounter
--- OUTSIDE RECORDS SUMMARY | 2025-06-04 15:28 | XMS_ITS | Encounter Summary ---
Author Organization [facility] Address [address] [place] [address] Phone Care Team Providers Care National Sales Director Name Role Phone Luis Monson MD Primary Care Provider [phone] Encounter Details Date Type Department Care Team (Late st Contact Info) Description 05/27/2014 Documentation [facility] [place] [address] [place] [address] Family Medicine, Physician [address] [place] [address] Social History Tobacco Use Types [...] on filedocumented in this encounter Care Teams National Sales Director Relationship Specialty Start Date End Date Luis Monson MD [address] [place] [address] BRAULIO Ambrocio [address] PCP - General 02/24/17 10/24/22 documented as of this encounter
--- OUTSIDE RECORDS SUMMARY | 2025-06-04 15:28 | XMS_ITS | Encounter Summary ---
Author Organization [facility] Address [address] [place] [address] Phone Care Team Providers Care Assistive Technology Specialist Name Role Phone Luis Monson MD Primary Care Provider [phone] Encounter Details Date Type Department Care Team (Late st Contact Info) Description 05/02/2012 Documentation [facility] [place] [address] [place] [address] Family Medicine, Physician [address] [place] [address] Social History Tobacco Use Types [...] on filedocumented in this encounter Care Teams Assistive Technology Specialist Relationship Specialty Start Date End Date Luis Monson MD [address] [place] [address] BRAULIO Ambrocio [address] PCP - General 02/24/17 10/24/22 documented as of this encounter
--- OUTSIDE RECORDS SUMMARY | 2025-06-04 15:28 | XMS_ITS | Encounter Summary ---
Author Organization [facility] Address [address] [place] [address] Phone Care Team Providers Care Framing Carpenter Name Role Phone Luis Monson MD Primary Care Provider [phone] Encounter Details Date Type Department Care Team (Late st Contact Info) Description 05/04/2011 Documentation [facility] [place] [address] [place] [address] Family Medicine, Physician [address] [place] [address] Social History Tobacco Use Types [...] on filedocumented in this encounter Care Teams Framing Carpenter Relationship Specialty Start Date End Date Luis Monson MD [address] [place] [address] BRAULIO Ambrocio [address] PCP - General 02/24/17 10/24/22 documented as of this encounter
== END 2025-06-04 07:57 | disposition home or self-care (01) ==
LOC: HO.LAB 07:56
PROVIDERS: PCP Internal Medicine; Visit Provider Internal Medicine Gastroenterology
DX: K75.81 Nonalcoholic steatohepatitis (NASH) (principal)
CPT/HCPCS: 36415; 80053